=== PATIENT | female | born 1990 | race Caucasian/White ===

== ENCOUNTER 2017-07-21 09:32 | Inpatient (IN) | payer OTHER ==
[2017-07-21 10:35] VITALS: BMI 22.2
--- NOTE | 2017-07-21 11:35 | HP ---
COWS - Scale Resting Pulse: 2= [place] 101-120 (0) Sweatin= Chills/Flushing Restless Observation: 3= Extraneous Movement Pupil Size: 2= Moderately Dilated Bone or Joint Aches: 4=Acute Joint/Muscle Pain Runny Nose/ Eye Tearin= Runny Nose/Eyes GI Upset > 30mins: 2= Nausea/Diarrhea (NAUSEA) Tremor Observation: 1= Tremor [place], Not Seen Yawning Observation: 0= None Anxiety or Irritability: 1=Feels Anxious/Irritable Goose Flesh Skin: 0=Smooth Skin COWS Score: 18 Admission ROS S - HPI Chief Complaint: DETOX TX FOR HEROIN AND XANAX DEPENDENCE Allergies/Adverse Reactions: Allergies Allergy/AdvReac Type Severity Reaction Status Date / Time blueberry Allergy Severe Swelling Verified 07/21/17 10:43 No Known Drug Allergies Allergy Verified 07/21/17 10:43 nuts Allergy Severe Swelling Uncoded 07/21/17 10:43 History of Present Illness: 27 Y/O FEMALE WITH A HX OF HEROIN AND XANAX DEPENDENCE SEEKING DETOX TX. TOX(-) FOR XANAX. LAST TX HERE IN 2013. STATES HAS BEEN IN OTHER TX SINCE THEN. Exam Limitations: No Limitations - Ebola screening Have you traveled outside of the country in the last 21 days: No Have you had contact with anyone from an Ebola affected area: No Have you been sick,other than usual withdrawal symptoms: No Do you have a fever: No - Review of Systems Constitutional: Chills, Loss of Appetite, Night Sweats, Changes in sleep EENT: reports: Blurred Vision (WEARS GLASSES), Tearing, Nose Congestion, Dental Problems (FILLINGS FOR CAVITIES) Respiratory: reports: Shortness of Breath (HX ASTHMA), Wheezing Cardiac: reports: No Symptoms Reported GI: reports: Constipated, Diarrhea, Nausea, Poor Appetite, Poor Fluid Intake, Vomiting, Abdominal cramping : reports: Dysuria ('ONLY WHEN I'M HIGH") Musculoskeletal: reports: Back Pain, Joint Pain, Muscle Pain Integumentary: reports: Bruising (IVD INJ. SITES ON BOTH ANTECUBITAL SPACES.) Neuro: reports: Headache, Tremors Endocrine: reports: No Symptoms Reported Hematology: reports: Anemia Psychiatric: reports: Orientated x3, Anxious, other (INSOMNIA) Other Systems: Reviewed and Negative Patient History - Patient Medical History Hx Anemia: Yes (NOT CURRENTLY ON MED) Hx Asthma: Yes (MDI) Hx Chronic Obstructive Pulmonary Disease (COPD): No Hx Cardiac Disorders: No Hx Hypertension: No Hx Hypercholesterolemia: No HX Cerebrovascular Accident: No Hx Seizures: No Hx Diabetes: No Hx Gastrointestinal Disorders: No Hx Genitourinary Disorders: No Hx Sexually Transmitted Disorders: No Hx Renal Disease (ESRD): No Hx Human Immunodeficiency Virus (HIV): No (NEGATIVE HX) Hx Hepatitis C: No Hx Depression: No ("ANXIETY/INSOMNIA--WAS ON XANAX AND AMBIEN BUT STOPPED SEEING MY PSYCH--") Hx Suicide Attempt: No (DENIES) Hx Bipolar Disorder: No Hx Schizophrenia: No - Patient Surgical History Past Surgical History: Yes Hx Neurologic Surgery: No Hx Cataract Extraction: No Hx Cardiac Surgery: No Hx Lung Surgery: No Hx Breast Surgery: No Hx Breast Biopsy: No Hx Abdominal Surgery: No Hx Appendectomy: No Hx Cholecystectomy: No Hx Genitourinary Surgery: No Hx Section: No Hx Orthopedic Surgery: No Other Surgical History: D & C AT 16 Y/O. Anesthesia Reaction: No - PPD History Previous Implant?: Yes Documented Results: Negative w/proof Implanted On Prior R Admission?: Yes Date: 10/24/14 Results: 0 mm PPD to be Administered?: Yes - Reproductive History Patient is a Female of Child Bearing Age (11 -55 yrs old): Yes Last Menstrual Period: 05/23/17 LMP comment: IRREGULAR PERIODS Patient : No - Smoking Cessation Smoking history: Current every day smoker Have you smoked in the past 12 months: Yes Aproximately how many cigarettes per day: 20 Hx Chewing Tobacco Use: No Initiated information on smoking cessation: Yes 'Breaking Loose' booklet given: 07/21/17 - Substance & Tx. History Hx Alcohol Use: No (DENIES BUT PAST HX OF USE) Hx Substance Use: Yes (HEROIN/XANAX) Substance Use Type: Heroin, Tranquilizers Hx Substance Use Treatment: Yes (LAST TX AT [facility] A YR AGO) - Substances Abused Heroin Route: Injection Frequency: Daily Amount used: 10 bags Age of first use: 21 Date of Last Use: 07/21/17 Xanax Route: Oral Frequency: Daily Amount used: 6 mg. Age of first use: 23 Date of Last Use: 07/20/17 Family Disease History - Family Disease History Family Disease History: Diabetes: Father (PARKINSONS DISEASE;[place]-), [place]: Grandparent (BREAST/BRAIN-ALIVE), Other: Father Admission Physical Exam [facility] - Vital Signs Vital Signs: Vital Signs - 24 hr 07/21/17 10:32 Temperature 97 F L Pulse Rate 116 H Respiratory 20 Rate Blood Pressure 105/79 - Physical General Appearance: Yes: Moderate Distress, Anxious HEENTM: Yes: EOMI, Normocephalic, ROBERT, Pharynx Normal Respiratory: Yes: Chest Non-Tender, Lungs Clear, Normal Breath Sounds, No Respiratory Distress Neck: Yes: No masses,lesions,Nodules, Supple, Trachea in good position Breast: Yes: Breast Exam Deferred Cardiology: Yes: Regular Rhythm, Regular Rate, S1, S2 Abdominal: Yes: Normal Bowel Sounds, Non Tender, Flat, Soft Genitourinary: Yes: Other (N/C) Back: Yes: Within Normal Limits Musculoskeletal: Yes: full range of Motion, Gait Steady Extremities: Yes: Normal Range of Motion, Non-Tender Neurological: Yes: 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 NO SWELLING OR REDNESS.) Lymphatic: Yes: Within Normal Limits - Diagnostic (1) Bronchial asthma Current Visit: Yes Status: Chronic Qualifiers: Asthma severity: mild intermittent Asthma complication type: uncomplicated Qualified Code(s): J45.20 - Mild intermittent asthma, uncomplicated (2) Opioid dependence with withdrawal Current Visit: Yes Status: Acute (3) History of anemia Current Visit: Yes Status: Suspected Cleared for Admission [facility] - Detox or Rehab [facility] Level of Care: Medically Managed Detox Regimen/Protocol: Methadone (PT REQUESTS LIBRIUM INSTEAD OF VALIUM.) [facility] Breath Alcohol Content Breath Alcohol Content: 0 Urine Pregancy Test - Result Urine Test Results: Negative- NO Line Present Urine Drug Screen - Results Drug Screen Negative: No Urine Drug Screen Results: OPI-Opiates, TCA-Tricyclic Antidepress
[2017-07-21] MEDS ORDERED: chlordiazePOXIDE HCL 25 MG CAPSULE PO ONE (11:48)
[2017-07-21] MEDS ORDERED: MAG HYDROX/AL HYDROX/SIMETH 30 ML UNIT-DOSE CUP PO PRN (11:48)
[2017-07-21] MEDS ORDERED: guaiFENesin/D-METHORPHAN HB 10 ML UNIT-DOSE CUPS PO PRN (11:48)
[2017-07-21] MEDS ORDERED: MAGNESIUM CITRATE 300 ML BOTTLE PO PRN (11:48)
[2017-07-21] MEDS ORDERED: MENTHOL/PHENOL 1 EACH UD MM PRN (11:48)
[2017-07-21] MEDS ORDERED: MAGNESIUM HYDROX 2400MG/30ML ORAL SUSPENSION 30 ML CUP PO PRN (11:48)
[2017-07-21] MEDS ORDERED: P-EPHED 60MG/TRIPROLIDI 2.5MG TABLET PO PRN (11:48)
[2017-07-21] MEDS ORDERED: ACETAMINOPHEN 325 MG TABLET (FP) PO PRN (11:48)
[2017-07-21] MEDS ORDERED: IBUPROFEN 400 MG TABLET (FP) PO PRN (11:48)
[2017-07-21] MEDS ORDERED: ALBUTEROL SO4 6.7 GM HFA INHALER IH PRN (12:31)
[2017-07-21] MEDS ORDERED: METHADONE HCL 10 MG TABLET (FOR DETOX USE ONLY) PO ONE ×2 (13:00→23:00)
[2017-07-21] MEDS: chlordiazePOXIDE HCL 25 MG CAPSULE PO PRN ×3 (13:35→22:23)
[2017-07-21] MEDS: NICOTINE 21 MG/24 HOURS TOPICAL PATCH TD SCH (13:36)
[2017-07-21 13:58] LABS: MCH 27.4 pg (25.7-33.7); MCHC 32.8 g/dl (32.0-36.0); MEAN CELL VOLUME 83.8 fl (80-96); MEAN PLT VOLUME 9.3 fl (7.5-11.1); PLATELET COUNT 292 K/MM3 (134-434); RDW 13.3 % (11.6-15.6); WHITE BLOOD COUNT 7.5 K/mm3 (4.0-10.0)
[2017-07-21 14:01] LABS: ALBUMIN 4.2 g/dl (3.4-5.0); ANION GAP 7 (8-16); CALCIUM 9.8 mg/dL (8.5-10.1); CO2 28 mmol/L (21-32); GLUCOSE,RANDOM 104 mg/dL (74-106)
[2017-07-21 14:11] LABS: ALK PHOS 66 U/L (45-117); BILIRUBIN,TOTAL 0.3 mg/dL (0.2-1.0); CREATININE 0.9 mg/dL (0.55-1.02); SGOT/AST 11 U/L (15-37); SGPT/ALT 27 U/L (12-78); TOT PROT 7.9 g/dl (6.4-8.2)
--- NOTE | 2017-07-21 16:20 | CONSULT ---
[facility] Psychiatric Consult - Data Date of interview: 07/21/17 Admission source: [facility] Identifying data: This is 27 years old female with no psychiatric hospitalization history intoxicated with: Opioids, Alcohol, Cannabis Substance Abuse History: - Smoking Cessation. Smoking history: Current every day smoker. Have you smoked in the past 12 months: Yes. Aproximately how many cigarettes per day: 20. Hx Chewing Tobacco Use: No. Initiated information on smoking cessation: Yes. 'Breaking Loose' booklet given: 07/21/17. - Substance & Tx. History. Hx Alcohol Use: No (DENIES BUT PAST HX OF USE). Hx Substance Use: Yes (HEROIN/XANAX). Substance Use Type: Heroin, Tranquilizers. Hx Substance Use Treatment: Yes (LAST TX AT [facility] A YR AGO). - Substances Abused. Heroin. Route: Injection. Frequency: Daily. Amount used: 10 bags. Age of first use: 21. Date of Last Use: 07/21/17. Xanax. Route: Oral. Frequency: Daily. Amount used: 6 mg. Age of first use: 23. Date of Last Use: 07/20/17 Medical History: Asthma Anemia history Psychiatric History: Patient reports anxiety and insomnia, reports to carry anxiety and Panic attacks, reports taking prior to admission: Seroquel 200mg po qhs. Ambien 10mg po prn qhs for insomnia Physical/Sexual Abuse/Trauma History: Denies Additional Comment: Seroquel 200mg po qhs. Ambien 10mg po prn qhs for insomnia Mental Status Exam - Mental Status Exam Alert and Oriented to: Person Patient Appearance: Well Groomed Mood: Anxious Affect: Mood Congruent Patient Behavior: Cooperative Speech Pattern: Appropriate Voice Loudness: Normal Thought Process: Goal Oriented Thought Disorder: Being Controlled Hallucinations: Denies Suicidal Ideation: Denies Homicidal Ideation: Denies Insight/Judgement: Fair Sleep: Difficulty falling asleep Appetite: Fair Muscle strength/Tone: Normal Gait/Station: Normal Additional Comments: Seroquel 200mg po qhs. Ambien 10mg po prn qhs for insomnia Psychiatric Findings - Problem List ([place] 1, 2,3) (1) Opioid dependence with withdrawal Current Visit: Yes Status: Acute (2) Alcohol dependence, episodic drinking behavior Current Visit: No Status: Acute (3) ETOH abuse Current Visit: No Status: Acute (4) Alcohol dependence Current Visit: No Status: Chronic (5) Anxiety Current Visit: No Status: Chronic (6) Cannabis dependence Current Visit: No Status: Chronic (7) Panic attack Current Visit: No Status: Chronic (8) Substance induced mood disorder Current Visit: No Status: Chronic - Initial Treatment Plan Initial Treatment Plan: Seroquel 200mg po qhs. Ambien 10mg po prn qhs for insomnia
[2017-07-21] MEDS ORDERED: chlordiazePOXIDE HCL 25 MG CAPSULE PO SCH (17:00)
[2017-07-21] MEDS: hydrOXYzine PAMOATE 25 MG CAPSULE (FP) PO PRN (19:49)
[2017-07-21 20:01] LABS: URINE APPEARANCE CLEAR; URINE BILIRUBIN 1+ (NEGATIVE); URINE BLOOD NEGATIVE (NEGATIVE); URINE COLOR YELLOW; URINE GLUCOSE (UA) NEGATIVE (NEGATIVE); URINE KETONE NEGATIVE (NEGATIVE); URINE LEUK ESTERASE NEGATIVE (NEGATIVE); URINE NITRITE NEGATIVE (NEGATIVE); URINE UROBILINOGEN 0.2 mg/dL (0.2-1.0)
[2017-07-21 20:07] LABS: URINE PROTEIN 1+ (NEGATIVE)
[2017-07-21 20:24] LABS: URINE BACTERIA MANY /hpf (NONE SEEN); URINE HYALINE CAST 14 /lpf; URINE MUCUS MANY; URINE RBC 2 /hpf (0-3); URINE WBC 12 /hpf (3-5)
[2017-07-21] MEDS: THIAMINE HCL 100 MG TABLET (FP) PO SCH (22:22)
[2017-07-21] MEDS: ZOLPIDEM TARTRATE 10 MG TABLET (PARK CARE ONLY) PO PRN (22:22)
[2017-07-21] MEDS: QUEtiapine FUMARATE 200 MG TABLET PO SCH (22:22)
[2017-07-22] MEDS: diphenhydrAMINE HCL 50 MG CAPSULE PO PRN (00:48)
[2017-07-22] MEDS: chlordiazePOXIDE HCL 25 MG CAPSULE PO PRN ×5 (06:46→22:22)
[2017-07-22] MEDS ORDERED: METHADONE HCL 10 MG TABLET (FOR DETOX USE ONLY) PO SCH (10:00)
[2017-07-22] MEDS: PRENATAL VITAMINS W/ FOLIC ACID TABLET (FP) PO SCH (10:47)
[2017-07-22] MEDS: NICOTINE 21 MG/24 HOURS TOPICAL PATCH TD SCH (10:47)
--- NOTE | 2017-07-22 13:14 | EKG ---
Test Reason : Blood Pressure : / mmHG Vent. Rate : 087 BPM Atrial Rate : 087 BPM P-R Int : 112 ms QRS Dur : 086 ms QT Int : 360 ms P-R-T Axes : 067 069 050 degrees QTc Int : 433 ms NORMAL SINUS RHYTHM NONSPECIFIC ST ABNORMALITY ABNORMAL ECG NO PREVIOUS ECGS AVAILABLE REPEAT EKG IF CLINICALLY INDICATED Confirmed by INO HUNG MD ([id number]) on 07/22/2017 1:13:33 PM Referred By: Abdirizak Stoner Confirmed By:INO HUNG MD
[2017-07-22] MEDS ORDERED: chlordiazePOXIDE HCL 25 MG CAPSULE PO SCH (17:00)
[2017-07-22] MEDS: ZOLPIDEM TARTRATE 10 MG TABLET (PARK CARE ONLY) PO PRN (22:21)
[2017-07-22] MEDS: QUEtiapine FUMARATE 200 MG TABLET PO SCH (22:22)
[2017-07-22] MEDS: THIAMINE HCL 100 MG TABLET (FP) PO SCH (22:22)
[2017-07-23] MEDS: chlordiazePOXIDE HCL 25 MG CAPSULE PO PRN ×4 (05:51→22:15)
[2017-07-23] MEDS: METHADONE HCL 5 MG TABLET (FOR DETOX USE ONLY) PO SCH (10:43)
[2017-07-23] MEDS: PRENATAL VITAMINS W/ FOLIC ACID TABLET (FP) PO SCH (10:43)
[2017-07-23] MEDS: NICOTINE 21 MG/24 HOURS TOPICAL PATCH TD SCH (10:44)
[2017-07-23] MEDS: LOPERAMIDE HCL 2 MG CAPSULE PO PRN ×2 (10:44→22:16)
--- NOTE | 2017-07-23 12:06 | PN ---
BHS COWS - Scale Resting Pulse: 2= [place] 101-120 Sweatin=Flushed/Facial Moisture Restless Observation: 0= Sits Still Pupil Size: 0= Normal to Room Light Bone or Joint Aches: 2= Severe Diffuse Aches Runny Nose/ Eye Tearin= Nasal Congestion GI Upset > 30mins: 2= Nausea/Diarrhea Tremor Observation of Outstretched Hands: 2= Slight Tremor Visible Yawning Observation: 2= >3x During Session Anxiety or Irritability: 2=Irritable/Anxious Goose Flesh Skin: 3=Piloerection COWS Score: 18 BHS Progress Note (SOAP) Subjective: diarrhea shakes sweats agitation anxiety body aches irritable Objective: 07/23/17 12:05 Vital Signs Temperature 97.7 F 07/23/17 10:00 Pulse Rate 111 H 07/23/17 10:00 Respiratory Rate 18 07/23/17 10:00 Blood Pressure 105/75 07/23/17 10:00 O2 Sat by Pulse Oximetry (%) Laboratory Tests 07/21/17 07/21/17 07/21/17 11:45 11:45 11:45 WBC 7.5 D RBC 4.23 Hgb 11.6 D Hct 35.4 MCV 83.8 MCH 27.4 MCHC 32.8 RDW 13.3 Plt Count 292 MPV 9.3 D Sodium 140 Potassium 4.2 Chloride 105 Carbon Dioxide 28 Anion Gap 7 L BUN 15 Creatinine 0.9 Creat Clearance w eGFR > 60 Random Glucose 104 Calcium 9.8 Total Bilirubin 0.3 D AST 11 L D ALT 27 Alkaline Phosphatase 66 Total Protein 7.9 Albumin 4.2 Urine Color Urine Appearance Urine pH Ur Specific [place] Urine Protein Urine Glucose (UA) Urine Ketones Urine Blood Urine Nitrite Urine Bilirubin Urine Urobilinogen Urine RBC Urine WBC Ur Epithelial Cells Urine Bacteria Hyaline Casts Urine Mucus RPR Titer Hepatitis C Antibody 0.2 07/21/17 07/21/17 11:45 14:00 WBC RBC Hgb Hct MCV MCH MCHC RDW Plt Count MPV Sodium Potassium Chloride Carbon Dioxide Anion Gap BUN Creatinine Creat Clearance w eGFR Random Glucose Calcium Total Bilirubin AST ALT Alkaline Phosphatase Total Protein Albumin Urine Color Yellow Urine Appearance Clear Urine pH 7.0 Ur Specific [place] 1.020 Urine Protein 1+ H Urine Glucose (UA) Negative Urine Ketones Negative Urine Blood Negative Urine Nitrite Negative Urine Bilirubin 1+ H Urine Urobilinogen 0.2 Urine RBC 2 Urine WBC 12 Ur Epithelial Cells Many Urine Bacteria Many Hyaline Casts 14 Urine Mucus Many RPR Titer Nonreactive Hepatitis C Antibody repeat u/a awake/alert ambulating no acute distress Assessment: 07/23/17 12:05 withdrawal sx Plan: continue detox increase fluids stop ensure immodium prn
[2017-07-23] MEDS ORDERED: chlordiazePOXIDE 5 MG CAPSULE PO SCH (17:00)
[2017-07-23] MEDS: THIAMINE HCL 100 MG TABLET (FP) PO SCH (22:15)
[2017-07-23] MEDS: QUEtiapine FUMARATE 200 MG TABLET PO SCH (22:15)
[2017-07-23] MEDS: ZOLPIDEM TARTRATE 10 MG TABLET (PARK CARE ONLY) PO PRN (22:15)
[2017-07-24] MEDS: LOPERAMIDE HCL 2 MG CAPSULE PO PRN (10:04)
[2017-07-24] MEDS: PRENATAL VITAMINS W/ FOLIC ACID TABLET (FP) PO SCH (10:37)
[2017-07-24] MEDS: chlordiazePOXIDE HCL 25 MG CAPSULE PO PRN (10:38)
[2017-07-24] MEDS: METHADONE HCL 5 MG TABLET (FOR DETOX USE ONLY) PO SCH (10:38)
[2017-07-24] MEDS: NICOTINE 21 MG/24 HOURS TOPICAL PATCH TD SCH (10:39)
--- NOTE | 2017-07-24 11:26 | PN ---
BHS COWS - Scale Resting Pulse: 2= [place] 101-120 Sweatin=Flushed/Facial Moisture Restless Observation: 1= Difficult to Sit Still Pupil Size: 0= Normal to Room Light Bone or Joint Aches: 2= Severe Diffuse Aches Runny Nose/ Eye Tearin= Runny Nose/Eyes GI Upset > 30mins: 2= Nausea/Diarrhea Tremor Observation of Outstretched Hands: 2= Slight Tremor Visible Yawning Observation: 0= None Anxiety or Irritability: 2=Irritable/Anxious Goose Flesh Skin: 0=Smooth Skin COWS Score: 15 BHS Progress Note (SOAP) Subjective: sweats shakes interrupted sleep diarrhea irritable Objective: 07/24/17 11:24 Vital Signs Temperature 98.1 F 07/24/17 10:06 Pulse Rate 109 H 07/24/17 10:06 Respiratory Rate 18 07/24/17 10:06 Blood Pressure 102/65 07/24/17 10:06 O2 Sat by Pulse Oximetry (%) Laboratory Tests 07/21/17 07/21/17 07/21/17 11:45 11:45 11:45 WBC 7.5 D RBC 4.23 Hgb 11.6 D Hct 35.4 MCV 83.8 MCH 27.4 MCHC 32.8 RDW 13.3 Plt Count 292 MPV 9.3 D Sodium 140 Potassium 4.2 Chloride 105 Carbon Dioxide 28 Anion Gap 7 L BUN 15 Creatinine 0.9 Creat Clearance w eGFR > 60 Random Glucose 104 Calcium 9.8 Total Bilirubin 0.3 D AST 11 L D ALT 27 Alkaline Phosphatase 66 Total Protein 7.9 Albumin 4.2 Urine Color Urine Appearance Urine pH Ur Specific [place] Urine Protein Urine Glucose (UA) Urine Ketones Urine Blood Urine Nitrite Urine Bilirubin Urine Urobilinogen Urine RBC Urine WBC Ur Epithelial Cells Urine Bacteria Hyaline Casts Urine Mucus RPR Titer Hepatitis C Antibody 0.2 07/21/17 07/21/17 11:45 14:00 WBC RBC Hgb Hct MCV MCH MCHC RDW Plt Count MPV Sodium Potassium Chloride Carbon Dioxide Anion Gap BUN Creatinine Creat Clearance w eGFR Random Glucose Calcium Total Bilirubin AST ALT Alkaline Phosphatase Total Protein Albumin Urine Color Yellow Urine Appearance Clear Urine pH 7.0 Ur Specific [place] 1.020 Urine Protein 1+ H Urine Glucose (UA) Negative Urine Ketones Negative Urine Blood Negative Urine Nitrite Negative Urine Bilirubin 1+ H Urine Urobilinogen 0.2 Urine RBC 2 Urine WBC 12 Ur Epithelial Cells Many Urine Bacteria Many Hyaline Casts 14 Urine Mucus Many RPR Titer Nonreactive Hepatitis C Antibody awake/alert ambulating no acute distress Assessment: 07/24/17 11:26 withdrawal sx Plan: continue detox increase fluids immodium prn
[2017-07-24] MEDS ORDERED: chlordiazePOXIDE HCL 10 MG CAPSULE PO SCH (17:00)
[2017-07-24] MEDS: hydrOXYzine PAMOATE 25 MG CAPSULE (FP) PO PRN (17:59)
[2017-07-24] MEDS: CYCLOBENZAPRINE HCL 10 MG TABLET (FP) PO PRN ×2 (20:50→22:17)
[2017-07-24] MEDS: SULFAMETHOXAZOLE/TRIMETHOPRIM 800MG/160MG D.S. TABLET PO SCH (22:16)
[2017-07-24] MEDS: diphenhydrAMINE HCL 50 MG CAPSULE PO PRN (22:16)
[2017-07-24] MEDS: QUEtiapine FUMARATE 200 MG TABLET PO SCH (22:17)
[2017-07-24] MEDS: THIAMINE HCL 100 MG TABLET (FP) PO SCH (22:17)
[2017-07-25] MEDS ORDERED: METHADONE HCL 10 MG TABLET (FOR DETOX USE ONLY) PO SCH (10:00)
[2017-07-25 10:05] LABS: URINE APPEARANCE SLCLOUDY; URINE BILIRUBIN NEGATIVE (NEGATIVE); URINE BLOOD NEGATIVE (NEGATIVE); URINE COLOR YELLOW; URINE GLUCOSE (UA) NEGATIVE (NEGATIVE); URINE KETONE NEGATIVE (NEGATIVE); URINE LEUK ESTERASE NEGATIVE (NEGATIVE); URINE NITRITE NEGATIVE (NEGATIVE); URINE PROTEIN NEGATIVE (NEGATIVE); URINE UROBILINOGEN NEGATIVE mg/dL (0.2-1.0)
[2017-07-25] MEDS: SULFAMETHOXAZOLE/TRIMETHOPRIM 800MG/160MG D.S. TABLET PO SCH ×2 (10:39→22:33)
[2017-07-25] MEDS: hydrOXYzine PAMOATE 25 MG CAPSULE (FP) PO PRN ×2 (10:39→17:10)
[2017-07-25] MEDS: NICOTINE 21 MG/24 HOURS TOPICAL PATCH TD SCH (10:39)
[2017-07-25] MEDS: PRENATAL VITAMINS W/ FOLIC ACID TABLET (FP) PO SCH (10:39)
[2017-07-25] MEDS: NICOTINE POLACRILEX 4 MG GUM BC PRN ×4 (10:42→22:35)
--- NOTE | 2017-07-25 12:42 | PN ---
BHS Progress Note (SOAP) Subjective: feeling better low back pain Objective: 07/25/17 12:42 Vital Signs Temperature 97.7 F 07/25/17 09:44 Pulse Rate 95 H 07/25/17 09:44 Respiratory Rate 18 07/25/17 09:44 Blood Pressure 99/71 07/25/17 09:44 O2 Sat by Pulse Oximetry (%) awake/alert ambulating no acute distress Assessment: 07/25/17 12:42 mild withdrawal sx Plan: continue detox increase fluids d/c in am
[2017-07-25] MEDS: CYCLOBENZAPRINE HCL 10 MG TABLET (FP) PO PRN ×2 (13:49→22:33)
[2017-07-25] MEDS: diphenhydrAMINE HCL 50 MG CAPSULE PO PRN (22:33)
[2017-07-25] MEDS: THIAMINE HCL 100 MG TABLET (FP) PO SCH (22:33)
[2017-07-25] MEDS: QUEtiapine FUMARATE 200 MG TABLET PO SCH (22:33)
[2017-07-26] MEDS: CYCLOBENZAPRINE HCL 10 MG TABLET (FP) PO PRN (05:21)
[2017-07-26] MEDS ORDERED: METHADONE HCL 5 MG TABLET (FOR DETOX USE ONLY) PO SCH (06:00)
[2017-07-26] MEDS: SULFAMETHOXAZOLE/TRIMETHOPRIM 800MG/160MG D.S. TABLET PO SCH (09:43)
[2017-07-26] MEDS: PRENATAL VITAMINS W/ FOLIC ACID TABLET (FP) PO SCH (09:43)
[2017-07-26] MEDS: NICOTINE 21 MG/24 HOURS TOPICAL PATCH TD SCH (09:44)
[2017-07-26 11:10] VITALS: BP 109/71; PULSE 120; TEMP 97.7
--- NOTE | 2017-07-26 13:27 | DS ---
[facility] Detox Discharge Summary Admission Date: 07/21/17 Discharge Date: 07/26/17 - History Present History: Cannabis Dependence, Opioid Dependence Pertinent Past History: asthma, anemia, UTI - Physical Exam Results Vital Signs: Vital Signs Temperature 97.7 F 07/26/17 11:10 Pulse Rate 120 H 07/26/17 11:10 Respiratory Rate 16 07/26/17 11:10 Blood Pressure 109/71 07/26/17 11:10 O2 Sat by Pulse Oximetry (%) Pertinent Admission Physical Exam Findings: withdrawal sx Laboratory Last Values WBC 7.5 K/mm3 (4.0-10.0) D 07/21/17 11:45 RBC 4.23 M/mm3 (3.60-5.2) 07/21/17 11:45 Hgb 11.6 GM/dL (10.7-15.3) D 07/21/17 11:45 Hct 35.4 % (32.4-45.2) 07/21/17 11:45 MCV 83.8 fl (80-96) 07/21/17 11:45 MCH 27.4 pg (25.7-33.7) 07/21/17 11:45 MCHC 32.8 g/dl (32.0-36.0) 07/21/17 11:45 RDW 13.3 % (11.6-15.6) 07/21/17 11:45 Plt Count 292 K/MM3 (134-434) 07/21/17 11:45 MPV 9.3 fl (7.5-11.1) D 07/21/17 11:45 Sodium 140 mmol/L (136-145) 07/21/17 11:45 Potassium 4.2 mmol/L (3.5-5.1) 07/21/17 11:45 Chloride 105 mmol/L (98-107) 07/21/17 11:45 Carbon Dioxide 28 mmol/L (21-32) 07/21/17 11:45 Anion Gap 7 (8-16) L 07/21/17 11:45 BUN 15 mg/dL (7-18) 07/21/17 11:45 Creatinine 0.9 mg/dL (0.55-1.02) 07/21/17 11:45 Creat Clearance w eGFR > 60 (>60) 07/21/17 11:45 Random Glucose 104 mg/dL (74-106) 07/21/17 11:45 Calcium 9.8 mg/dL (8.5-10.1) 07/21/17 11:45 Total Bilirubin 0.3 mg/dL (0.2-1.0) D 07/21/17 11:45 AST 11 U/L (15-37) L D 07/21/17 11:45 ALT 27 U/L (12-78) 07/21/17 11:45 Alkaline Phosphatase 66 U/L (45-117) 07/21/17 11:45 Total Protein 7.9 g/dl (6.4-8.2) 07/21/17 11:45 Albumin 4.2 g/dl (3.4-5.0) 07/21/17 11:45 Urine Color Yellow 07/25/17 08:10 Urine Appearance Slcloudy 07/25/17 08:10 Urine pH 5.0 (5.0-8.0) D 07/25/17 08:10 Ur Specific [place] >= 1.030 (1.005-1.025) H 07/25/17 08:10 Urine Protein Negative (NEGATIVE) 07/25/17 08:10 Urine Glucose (UA) Negative (NEGATIVE) 07/25/17 08:10 Urine Ketones Negative (NEGATIVE) 07/25/17 08:10 Urine Blood Negative (NEGATIVE) 07/25/17 08:10 Urine Nitrite Negative (NEGATIVE) 07/25/17 08:10 Urine Bilirubin Negative (NEGATIVE) 07/25/17 08:10 Urine Urobilinogen Negative mg/dL (0.2-1.0) 07/25/17 08:10 Urine RBC 2 /hpf (0-3) 07/21/17 14:00 Urine WBC 12 /hpf (3-5) 07/21/17 14:00 Ur Epithelial Cells Many /hpf (FEW) 07/21/17 14:00 Urine Bacteria Many /hpf (NONE SEEN) 07/21/17 14:00 Hyaline Casts 14 /lpf 07/21/17 14:00 Urine Mucus Many 07/21/17 14:00 RPR Titer Nonreactive (NONREACTIVE) 07/21/17 11:45 Hepatitis C Antibody 0.2 s/co ratio (0.0-0.9) 07/21/17 11:45 labs noted - Treatment Hospital Course: Detox Protocol Followed, Detoxed Safely, Responded well, Discharged Condition Good - Medication Discharge Medications: Ambulatory Orders Albuterol Sulfate Inhaler - [Ventolin HFA Inhaler -] 2 inh PO Q4H PRN 06/09/15 Quetiapine Fumarate [Seroquel -] 200 mg PO HS #30 tab 07/21/17 Sulfamethoxazole/Trimethoprim [Bactrim Ds -] 1 tab PO BID #7 tablet 07/26/17 - Diagnosis (1) Cannabis dependence Current Visit: Yes Status: Acute (2) Opioid dependence with withdrawal Current Visit: Yes Status: Acute (3) Substance induced mood disorder Current Visit: Yes Status: Chronic (4) UTI (urinary tract infection) Current Visit: Yes Status: Acute Qualifiers: Urinary tract infection type: acute cystitis Hematuria presence: without hematuria Qualified Code(s): N30.00 - Acute cystitis without hematuria - AMA Did Patient Leave Against Medical Advice: No
== END 2017-07-26 10:28 | disposition home or self-care (01) | DRG 773 ==
LOC: YASAS 09:32 → Y6N 12:22
PROVIDERS: ADMIT Internal Medicine; ATTEND Internal Medicine Addiction Medicine
PROC: HZ2ZZZZ Detoxification Services for Substance Abuse Treatment (ICD-10-PCS; principal; 2017-07-21)
DX: F11.23 Opioid dependence with withdrawal (principal); F12.20 Cannabis dependence, uncomplicated; F17.210 Nicotine dependence, cigarettes, uncomplicated; F19.24 Other psychoactive substance dependence with psychoactive substance-induced mood disorder; F41.9 Anxiety disorder, unspecified; F41.0 Panic disorder [episodic paroxysmal anxiety]; J45.20 Mild intermittent asthma, uncomplicated; N30.00 Acute cystitis without hematuria
CPT/HCPCS: 36415; 80053; 81003; 81015; 85027; 86593; 86803; 93005; 93010

== ENCOUNTER 2017-07-29 13:07 | Inpatient (IN) | payer OTHER ==
[2017-07-29 14:47] VITALS: BMI 22.2
--- NOTE | 2017-07-29 15:21 | HP ---
Admission [facility] Chief Complaint: I AM HERE FRO REHAB FROM HEROIN,XANAX Allergies/Adverse Reactions: Allergies Allergy/AdvReac Type Severity Reaction Status Date / Time blueberry Allergy Severe Swelling Verified 07/29/17 15:13 nut - unspecified Allergy Severe Swelling Verified 07/29/17 16:11 No Known Drug Allergies Allergy Verified 07/29/17 15:13 nuts Allergy Severe Swelling Uncoded 07/29/17 15:13 History of Present Illness: THIS 27 YEARS OLD FEMALE WITH HEROIN AND XANAX DEPENENCE,SEEKING REHAB,LAST TREATMENT [facility] 07/21/17 TO 07/26/17 ASTHMA INSOMNIA LONGEST PERIOD OF SOBRIETY 1 YEAR - Ebola screening Have you traveled outside of the country in the last 21 days: No Have you had contact with anyone from an Ebola affected area: No Have you been sick,other than usual withdrawal symptoms: No - Review of Systems Constitutional: No Symptoms Reported EENT: reports: No Symptoms Reported Respiratory: reports: No Symptoms reported, Other (ASTHMA) Cardiac: reports: No Symptoms Reported GI: reports: No Symptoms Reported : reports: No Symptoms Reported Musculoskeletal: reports: No Symptoms Reported Integumentary: reports: No Symptoms Reported Neuro: reports: No Symptoms reported Endocrine: reports: No Symptoms Reported Hematology: reports: No Symptoms Reported Psychiatric: reports: No Sypmtoms Reported (INSOMNIA), Judgement Intact, Mood/ Affect Appropiate, other Patient History - Patient Medical History Hx Anemia: Yes (NOT CURRENTLY ON MED) Hx Asthma: Yes (MDI) Hx Chronic Obstructive Pulmonary Disease (COPD): No Hx Cardiac Disorders: No Hx Hypertension: No Hx Hypercholesterolemia: No HX Cerebrovascular Accident: No Hx Seizures: No Hx Diabetes: No Hx Gastrointestinal Disorders: No Hx Genitourinary Disorders: No Hx Sexually Transmitted Disorders: No Hx Renal Disease (ESRD): No Hx Human Immunodeficiency Virus (HIV): No (NEGATIVE HX) Hx Hepatitis C: No Hx Depression: No ("ANXIETY/INSOMNIA--WAS ON XANAX AND AMBIEN BUT STOPPED SEEING MY PSYCH--") Hx Suicide Attempt: No (DENIES) Hx Bipolar Disorder: No Hx Schizophrenia: No - Patient Surgical History Past Surgical History: Yes Hx Neurologic Surgery: No Hx Cataract Extraction: No Hx Cardiac Surgery: No Hx Lung Surgery: No Hx Breast Surgery: No Hx Breast Biopsy: No Hx Abdominal Surgery: No Hx Appendectomy: No Hx Cholecystectomy: No Hx Genitourinary Surgery: No Hx Section: No Hx Orthopedic Surgery: No Other Surgical History: D & C AT 16 Y/O. Anesthesia Reaction: No - PPD History Previous Implant?: Yes Documented Results: Negative w/proof Date: 10/24/14 Results: 0 mm - Reproductive History Patient is a Female of Child Bearing Age (11 -55 yrs old): Yes Last Menstrual Period: 05/23/17 Patient : No - Smoking Cessation Smoking history: Current every day smoker Have you smoked in the past 12 months: Yes Aproximately how many cigarettes per day: 20 Hx Chewing Tobacco Use: No Initiated information on smoking cessation: Yes 'Breaking Loose' booklet given: 07/29/17 - Substance & Tx. History Hx Alcohol Use: No Hx Substance Use: Yes Substance Use Type: Cocaine, Heroin, Tranquilizers - Substances Abused Heroin Route: Injection Frequency: Daily Amount used: 1 BAG Age of first use: 21 Date of Last Use: 07/28/17 Crack Route: Smoking Frequency: Daily Amount used: $40 Age of first use: 16 Date of Last Use: 07/28/17 Alprazolam (Xanax) Route: Oral Frequency: 1-2 times per week Amount used: 2MG Age of first use: 23 Date of Last Use: 07/26/17 Family Disease History - Family Disease History Family Disease History: Diabetes: Father (PARKINSONS DISEASE;[place]-), [place]: Grandparent (BREAST/BRAIN-ALIVE), Other: Father Admission Physical Exam BHS - Vital Signs Vital Signs: Vital Signs - 24 hr 07/29/17 14:42 Temperature 97.7 F Pulse Rate 96 H Respiratory 20 Rate Blood Pressure 112/72 - Physical General Appearance: Yes: Within Normal Limits HEENTM: Yes: Within Normal Limits, ROBERT, Pharynx Normal Respiratory: Yes: Lungs Clear, Normal Breath Sounds, No Respiratory Distress Neck: Yes: Within Normal Limits Breast: Yes: Breast Exam Deferred Cardiology: Yes: Within Normal Limits, Regular Rhythm, Regular Rate, S1, S2 Abdominal: Yes: Within Normal Limits, Normal Bowel Sounds, Non Tender, Flat, Soft Genitourinary: Yes: Within Normal Limits Back: Yes: Within Normal Limits Musculoskeletal: Yes: Within Normal Limits Extremities: Yes: Within Normal Limits Neurological: Yes: Within Normal Limits, 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, Fully Oriented, Alert, Motor Strength 5/5 Integumentary: Yes: Within Normal Limits Lymphatic: Yes: Within Normal Limits - Diagnostic (1) Bronchial asthma Current Visit: No Status: Chronic Qualifiers: Asthma severity: mild intermittent Asthma complication type: uncomplicated Qualified Code(s): J45.20 - Mild intermittent asthma, uncomplicated (2) Opioid dependence Current Visit: Yes Status: Acute (3) Sedative dependence Current Visit: Yes Status: Acute (4) Cocaine dependence Current Visit: Yes Status: Acute (5) Nicotine dependence Current Visit: Yes Status: Acute (6) Insomnia Current Visit: Yes Status: Acute Cleared for Admission BHS - Detox or Rehab Claeared for Rehab Admission: Yes BHS Breath Alcohol Content Breath Alcohol Content: 0 Urine Pregancy Test - Result Urine Test Results: Negative- NO Line Present Urine Drug Screen - Results Drug Screen Negative: No Urine Drug Screen Results: SENTHIL-Cocaine, OPI-Opiates, BZO-Benzodiazepines, MTD- Methadone, TCA-Tricyclic Antidepress Inpatient Rehab Admission - Initial Determination Are CD services needed?: Yes Free of communicable disease: Yes Not in need of hospitalization: Yes - Rehab Admission Criteria Previous failed treatment: Yes Poor recovery environment: Yes Patient is meeting Inpatient Rehab admission criteria:: Yes
[2017-07-29] MEDS ORDERED: guaiFENesin/D-METHORPHAN HB 10 ML UNIT-DOSE CUPS PO PRN (15:23)
[2017-07-29] MEDS ORDERED: P-EPHED 60MG/TRIPROLIDI 2.5MG TABLET PO PRN (15:23)
[2017-07-29] MEDS ORDERED: IBUPROFEN 400 MG TABLET (FP) PO PRN (15:23)
[2017-07-29] MEDS ORDERED: LOPERAMIDE HCL 2 MG CAPSULE PO PRN (15:23)
[2017-07-29] MEDS ORDERED: hydrOXYzine PAMOATE 25 MG CAPSULE (FP) PO PRN (15:23)
[2017-07-29] MEDS ORDERED: MAGNESIUM HYDROX 2400MG/30ML ORAL SUSPENSION 30 ML CUP PO PRN (15:23)
[2017-07-29] MEDS ORDERED: MENTHOL/PHENOL 1 EACH UD MM PRN (15:23)
[2017-07-29] MEDS ORDERED: MAGNESIUM CITRATE 300 ML BOTTLE PO PRN (15:23)
[2017-07-29] MEDS ORDERED: diphenhydrAMINE HCL 50 MG CAPSULE PO PRN (15:23)
--- NOTE | 2017-07-29 15:23 | HP ---
[facility] Rehab Assess/Revision - Admission History Admitted to Rehab from: [facility] [place] Date of Admission to Rehab: 07/29/17 - Vital signs Vital Signs: Vital Signs Period Temp Pulse Resp BP Sys/Ballesteros Pulse Ox Last 24 Hr 97.7 F 96 20 112/72 - Findings Detox History & Physical reviewed: Yes Concur with findings: Yes Comments/Additional Findings: FOR REHAB PROTOCOL
[2017-07-29] MEDS ORDERED: ALBUTEROL SO4 18 GM HFA INHALER IH PRN (15:25)
[2017-07-29] MEDS: NICOTINE 21 MG/24 HOURS TOPICAL PATCH TD SCH (18:08)
[2017-07-29] MEDS: THIAMINE HCL 100 MG TABLET (FP) PO SCH (21:38)
[2017-07-30] MEDS ORDERED: CYCLOBENZAPRINE HCL 10 MG TABLET (FP) PO PRN (09:08)
[2017-07-30] MEDS: PRENATAL VITAMINS W/ FOLIC ACID TABLET (FP) PO SCH (09:22)
[2017-07-30] MEDS: cloNIDine HCL 0.1 MG TABLET PO SCH ×3 (09:22→21:30)
[2017-07-30] MEDS: NICOTINE 21 MG/24 HOURS TOPICAL PATCH TD SCH (09:23)
--- NOTE | 2017-07-30 11:37 | HP ---
Psychiatrist Admission - Data Date of interview: 07/30/17 Admission source: [facility] Identifying data: This is the second admission to [address] [place] [address] for this 27 years old single childless female,resides with friend,supported by PA. Medical History: Significant for UTI acute and BA. Psychiatric History: Patient was seen by psychiatrist at school age to address anxiety,behavioral problems.She was on psychotherapy for a few months.Patient reports seing psychiatrist once in a while while in drug rehabilitation program to address insomnia,anxiety.No psychiatric care at present,not on medications but she is willing to restart mood stabilizers,anxiolytics which were given her upon discharge from [facility] in April;Remeron 15 mg po hs,Seroquel 400 mg o hs,Neurontin 600 mg po tid and Topamax 100 mg po bid Physical/Sexual Abuse/Trauma History: denies Vital Signs: Vital Signs - 24 hr 07/29/17 07/29/17 07/29/17 14:42 18:17 22:14 Temperature 97.7 F 98.2 F 98.2 F Pulse Rate 96 H 105 H 105 H Respiratory 20 16 16 Rate Blood Pressure 112/72 101/70 101/70 07/30/17 07/30/17 07/30/17 00:30 07:06 09:30 Temperature 98.2 F 98.3 F Pulse Rate 90 106 H Respiratory 16 18 18 Rate Blood Pressure 106/76 106/73 Allergies/Adverse Reactions: Allergies Allergy/AdvReac Type Severity Reaction Status Date / Time blueberry Allergy Severe Swelling Verified 07/29/17 15:13 nut - unspecified Allergy Severe Swelling Verified 07/29/17 16:11 No Known Drug Allergies Allergy Verified 07/29/17 15:13 nuts Allergy Severe Swelling Uncoded 07/29/17 15:13 Date of last physical exam: 07/29/17 Concur with the findings of this exam: Yes - Substance Abuse/Tx History Hx Alcohol Use: Yes (reports drinking since 16 yo) Hx Substance Use: Yes (iv since 21 yo,Xanax about 3 years ago,2 g daily) Substance Use Type: Alcohol, Heroin, Tranquilizers Hx Substance Use Treatment: Yes (completed this program in 2014) - Admission Criteria Previous failed treatment: Yes Poor recovery environment: Yes Comorbidities: Yes Lacks judgement: Yes Mental Status Exam - Mental Status Exam Alert and Oriented to: Time, Place, Person Cognitive Function: Grossly Intact Patient Appearance: Unkempt Mood: Anxious Affect: Mood Congruent, Labile Patient Behavior: Cooperative Speech Pattern: Clear Voice Loudness: Normal Thought Process: Goal Oriented Thought Disorder: Not Present Hallucinations: Denies Suicidal Ideation: Denies Homicidal Ideation: Denies Insight/Judgement: Fair Sleep: Difficulty falling asleep Appetite: Fair Muscle strength/Tone: Normal Gait/Station: Normal Psychiatric Findings - Problem List ([place] 1, 2,3) (1) Cocaine dependence Current Visit: Yes Status: Chronic (2) Nicotine dependence Current Visit: Yes Status: Chronic (3) Opioid dependence Current Visit: Yes Status: Chronic (4) Sedative dependence Current Visit: Yes Status: Chronic (5) Alcohol dependence, episodic drinking behavior Current Visit: No Status: Acute (6) Cannabis dependence Current Visit: Yes Status: Chronic (7) Psychoactive substance-induced mood disorder Current Visit: Yes Status: Chronic - Initial Treatment Plan Initial Treatment Plan: Continue current medications as per plan. Will monitor progress.
[2017-07-30] MEDS: hydrOXYzine PAMOATE 25 MG CAPSULE (FP) PO PRN (11:54)
[2017-07-30] MEDS: GABAPENTIN 300 MG CAPSULE (FP) PO SCH ×2 (13:36→21:14)
[2017-07-30] MEDS: TOPIRAMATE 100 MG TABLET PO SCH ×2 (13:36→22:15)
[2017-07-30] MEDS ORDERED: CYCLOBENZAPRINE HCL 5 MG TABLET PO ONE (14:48)
[2017-07-30] MEDS ORDERED: NAPROXEN 500 MG TABLET (FP) PO ONE (14:50)
[2017-07-30] MEDS: THIAMINE HCL 100 MG TABLET (FP) PO SCH (21:19)
[2017-07-30] MEDS: QUEtiapine FUMARATE 200 MG TABLET PO SCH (21:19)
[2017-07-30] MEDS: NAPROXEN 500 MG TABLET (FP) PO SCH (21:19)
[2017-07-30] MEDS: MIRTAZAPINE 15 MG TABLET (FP) PO SCH (21:19)
[2017-07-30] MEDS ORDERED: CYCLOBENZAPRINE HCL 10 MG TABLET (FP) PO SCH (22:00)
[2017-07-31] MEDS: GABAPENTIN 300 MG CAPSULE (FP) PO SCH ×3 (06:30→21:24)
[2017-07-31] MEDS: CYCLOBENZAPRINE HCL 5 MG TABLET PO SCH ×3 (06:30→21:23)
[2017-07-31] MEDS ORDERED: PT OWN MED DRAWER 7, Y5N ONE ×3 (08:40→21:26)
[2017-07-31] MEDS: PRENATAL VITAMINS W/ FOLIC ACID TABLET (FP) PO SCH (09:53)
[2017-07-31] MEDS: TOPIRAMATE 100 MG TABLET PO SCH ×2 (09:53→21:24)
[2017-07-31] MEDS: NAPROXEN 500 MG TABLET (FP) PO SCH ×2 (09:53→21:24)
[2017-07-31] MEDS: NICOTINE 21 MG/24 HOURS TOPICAL PATCH TD SCH (09:54)
[2017-07-31] MEDS: cloNIDine HCL 0.1 MG TABLET PO SCH ×2 (09:54→21:23)
--- NOTE | 2017-07-31 13:13 | PN ---
RAMA Progress Note Note: patient has a fall last night no head injury no complaint stated she is feeling ok ambulation with out difficulty was place on fall protocol 2 fall precaution close monitoring
[2017-07-31] MEDS: THIAMINE HCL 100 MG TABLET (FP) PO SCH (21:23)
[2017-07-31] MEDS: MIRTAZAPINE 15 MG TABLET (FP) PO SCH (21:24)
[2017-07-31] MEDS: QUEtiapine FUMARATE 200 MG TABLET PO SCH (21:24)
[2017-08-01] MEDS: GABAPENTIN 300 MG CAPSULE (FP) PO SCH ×3 (06:39→21:20)
[2017-08-01] MEDS: CYCLOBENZAPRINE HCL 5 MG TABLET PO SCH ×3 (06:39→21:20)
[2017-08-01] MEDS ORDERED: PT OWN MED DRAWER 7, Y5N ONE (08:36)
[2017-08-01] MEDS: TOPIRAMATE 100 MG TABLET PO SCH ×2 (09:57→21:20)
[2017-08-01] MEDS: NAPROXEN 500 MG TABLET (FP) PO SCH ×2 (09:57→21:20)
[2017-08-01] MEDS: PRENATAL VITAMINS W/ FOLIC ACID TABLET (FP) PO SCH (09:58)
[2017-08-01] MEDS: NICOTINE 21 MG/24 HOURS TOPICAL PATCH TD SCH (09:58)
[2017-08-01] MEDS: cloNIDine HCL 0.1 MG TABLET PO SCH ×2 (09:59→21:23)
[2017-08-01] MEDS: NICOTINE POLACRILEX 2 MG GUM BUC PRN (10:00)
--- NOTE | 2017-08-01 13:57 | PN ---
Psychiatric Progress Note Vital Signs: Vital Signs Period Temp Pulse Resp BP Sys/Ballesteros Pulse Ox Last 24 Hr 96.8 F-98.8 F 84-92 16-18 99-128/62-88 Date of Session: 08/01/17 Chief Complaint:: Thomas not sleeping,it makes me nervious." HPI: Opioid,Cocaine,Cannabis,Alcohol and Sedative dependence comorbid with Substance induced mood disoredr. ROS: BA,UTI. Current Medications: Active Medications Generic Name Dose Route Start Last Admin Trade Name Freq PRN Reason Stop Dose Admin Acetaminophen 650 mg 07/29/17 15:23 Tylenol - PO Q4H PRN FEVER OR PAIN Al Hydroxide/Mg Hydroxide 30 ml 07/29/17 15:23 Mylanta Oral Suspension - PO Q6H PRN DYSPEPSIA Albuterol Sulfate 2 puff 07/29/17 15:25 Ventolin Hfa Inhaler - IH Q4H PRN ASTHMA Clonidine 0.1 mg 07/30/17 10:00 08/01/17 09:59 Catapres - PO 08/02/17 23:59 Not Given BID KLAUDIA Cyclobenzaprine HCl 5 mg 07/31/17 03:20 08/01/17 13:12 Cyclobenzaprine Hcl PO 08/02/17 23:59 5 mg TID KLAUDIA Administration Diphenhydramine HCl 50 mg 07/29/17 15:23 07/29/17 21:38 Benadryl - PO 50 mg HSMR1 PRN Administration FOR ITCHING Eucalyptus/Menthol/Phenol/Sorbitol 1 each 07/29/17 15:23 Cepastat Lozenge - MM Q4H PRN SORE THROAT Gabapentin 600 mg 07/30/17 14:00 08/01/17 13:12 Neurontin - PO 600 mg TID KLAUDIA Administration Guaifenesin 10 ml 07/29/17 15:23 Robitussin Dm - PO Q6H PRN COUGH Hydroxyzine Pamoate 50 mg 07/30/17 06:47 07/30/17 11:54 Vistaril - PO 50 mg Q6H PRN Administration AGITATION Loperamide HCl 4 mg 07/29/17 15:23 07/30/17 08:58 Imodium - PO 4 mg Q6H PRN Administration DIARRHEA Magnesium Hydroxide 30 ml 07/29/17 15:23 Milk Of Magnesia - PO DAILY PRN CONSTIPATION Mirtazapine 30 mg 08/01/17 22:00 Remeron - PO HS KLAUDIA Naproxen 500 mg 07/30/17 22:00 08/01/17 09:57 Naprosyn - PO 500 mg BID KLAUDIA Administration Nicotine 21 mg 07/29/17 17:15 08/01/17 09:58 Nicoderm Patch - TD 21 mg DAILY KLAUDIA Administration Nicotine Polacrilex 2 mg 07/29/17 15:23 08/01/17 10:00 Nicorette Gum - BUC 2 mg Q2H PRN Administration NICOTINE REPLACEMENT RX Multivit/Folic Acid/Iron 1 tab 07/30/17 10:00 08/01/17 09:58 Vitamins (Sjr) - PO Not Given DAILY KLAUDIA Pseudoephedrine/Triprolidine 1 combo 07/29/17 15:23 Actifed - PO TID PRN NASAL CONGESTION Quetiapine Fumarate 300 mg 08/01/17 22:00 Seroquel - PO HS KLAUDIA Thiamine HCl 100 mg 07/29/17 22:00 07/31/17 21:23 Vitamin B1 - PO 100 mg HS KLAUDIA Administration Topiramate 100 mg 07/30/17 12:50 08/01/17 09:57 Topamax - PO 100 mg BID KLAUDIA Administration Current Side Effect: No Lab tests ordered: No Lab tests reviewed: Yes Provider note:: Chart was revuewedpatient was evaluated and medications were discussed with the patient.She addressed ongoing sleeping difficulties( inability to fall asleep and interrupted sleep pattern).Remeron 15 mg po hs will be adjusted to 30 mg po hs.Seroquel 200 mg po hs will be adjusted to 300 mg po hs . Supportive therapy as well as psychoeducation has been provided, sleep improving techniques has been discussed with the patient. Total face to face time:: 30 Mental Status Exam - Mental Status Exam Alert and Oriented to: Time, Place, Person Cognitive Function: Grossly Intact Patient Appearance: Well Groomed Mood: Anxious Affect: Mood Congruent, Labile Patient Behavior: Cooperative Speech Pattern: Clear Voice Loudness: Normal Thought Process: Goal Oriented Thought Disorder: Not Present Hallucinations: Denies Suicidal Ideation: Denies Homicidal Ideation: Denies Insight/Judgement: Fair Sleep: Difficulty falling asleep Appetite: Good Muscle strength/Tone: Normal Gait/Station: Normal Psychiatric Treatment Plan - Problem List (1) Cocaine dependence Current Visit: Yes (2) Nicotine dependence Current Visit: Yes (3) Opioid dependence Current Visit: Yes (4) Sedative dependence Current Visit: Yes (5) Alcohol dependence, episodic drinking behavior Current Visit: No (6) Cannabis dependence Current Visit: Yes (7) Psychoactive substance-induced mood disorder Current Visit: Yes
[2017-08-01] MEDS: MIRTAZAPINE 30 MG TABLET (FP) PO SCH (21:20)
[2017-08-01] MEDS: THIAMINE HCL 100 MG TABLET (FP) PO SCH (21:21)
[2017-08-01] MEDS: QUEtiapine FUMARATE 300 MG TABLET PO SCH (21:21)
[2017-08-02] MEDS: GABAPENTIN 300 MG CAPSULE (FP) PO SCH ×3 (06:43→21:20)
[2017-08-02] MEDS: CYCLOBENZAPRINE HCL 5 MG TABLET PO SCH ×3 (06:43→21:20)
[2017-08-02] MEDS: cloNIDine HCL 0.1 MG TABLET PO SCH ×2 (09:30→21:20)
[2017-08-02] MEDS: NAPROXEN 500 MG TABLET (FP) PO SCH ×2 (09:30→21:19)
[2017-08-02] MEDS: PRENATAL VITAMINS W/ FOLIC ACID TABLET (FP) PO SCH (09:31)
[2017-08-02] MEDS: NICOTINE 21 MG/24 HOURS TOPICAL PATCH TD SCH (09:31)
[2017-08-02] MEDS: TOPIRAMATE 100 MG TABLET PO SCH ×2 (09:31→21:19)
[2017-08-02] MEDS ORDERED: PT OWN MED DRAWER 7, Y5N ONE (19:12)
[2017-08-02] MEDS: MIRTAZAPINE 30 MG TABLET (FP) PO SCH (21:19)
[2017-08-02] MEDS: QUEtiapine FUMARATE 300 MG TABLET PO SCH (21:20)
[2017-08-02] MEDS: THIAMINE HCL 100 MG TABLET (FP) PO SCH (21:20)
[2017-08-03] MEDS: GABAPENTIN 300 MG CAPSULE (FP) PO SCH ×3 (06:54→21:28)
[2017-08-03] MEDS: NAPROXEN 500 MG TABLET (FP) PO SCH ×2 (09:58→21:28)
[2017-08-03] MEDS: NICOTINE 21 MG/24 HOURS TOPICAL PATCH TD SCH (09:58)
[2017-08-03] MEDS: PRENATAL VITAMINS W/ FOLIC ACID TABLET (FP) PO SCH (09:58)
[2017-08-03] MEDS: TOPIRAMATE 100 MG TABLET PO SCH ×2 (09:59→21:29)
[2017-08-03] MEDS: THIAMINE HCL 100 MG TABLET (FP) PO SCH (21:28)
[2017-08-03] MEDS: MIRTAZAPINE 30 MG TABLET (FP) PO SCH (21:28)
[2017-08-03] MEDS: QUEtiapine FUMARATE 300 MG TABLET PO SCH (21:28)
[2017-08-03] MEDS: hydrOXYzine PAMOATE 25 MG CAPSULE (FP) PO PRN (21:30)
[2017-08-03] MEDS: ACETAMINOPHEN 325 MG TABLET (FP) PO PRN (21:30)
[2017-08-04] MEDS: GABAPENTIN 300 MG CAPSULE (FP) PO SCH ×3 (06:30→21:31)
[2017-08-04] MEDS: NICOTINE POLACRILEX 2 MG GUM BUC PRN (09:34)
[2017-08-04] MEDS: NAPROXEN 500 MG TABLET (FP) PO SCH ×2 (10:18→21:32)
[2017-08-04] MEDS: TOPIRAMATE 100 MG TABLET PO SCH ×2 (10:18→21:32)
[2017-08-04] MEDS: PRENATAL VITAMINS W/ FOLIC ACID TABLET (FP) PO SCH (10:18)
[2017-08-04] MEDS: NICOTINE 21 MG/24 HOURS TOPICAL PATCH TD SCH (10:18)
[2017-08-04] MEDS ORDERED: CYCLOBENZAPRINE HCL 10 MG TABLET (FP) PO SCH (14:45)
[2017-08-04] MEDS: ACETAMINOPHEN 325 MG TABLET (FP) PO PRN (17:07)
[2017-08-04] MEDS: LACTULOSE 20 GM/30 ML UDC (FOR ORAL USE ONLY) PO SCH ×2 (17:07→21:31)
[2017-08-04] MEDS: SUVOREXANT 10 MG TABLET PO PRN (21:29)
[2017-08-04] MEDS: THIAMINE HCL 100 MG TABLET (FP) PO SCH (21:30)
[2017-08-04] MEDS: MIRTAZAPINE 30 MG TABLET (FP) PO SCH (21:32)
[2017-08-04] MEDS: QUEtiapine FUMARATE 300 MG TABLET PO SCH (21:32)
[2017-08-04] MEDS: CYCLOBENZAPRINE HCL 5 MG TABLET PO SCH (21:32)
[2017-08-05] MEDS: GABAPENTIN 300 MG CAPSULE (FP) PO SCH ×3 (06:25→21:35)
[2017-08-05] MEDS: CYCLOBENZAPRINE HCL 5 MG TABLET PO SCH ×3 (06:25→21:35)
[2017-08-05] MEDS: NAPROXEN 500 MG TABLET (FP) PO SCH ×2 (10:04→21:34)
[2017-08-05] MEDS: PRENATAL VITAMINS W/ FOLIC ACID TABLET (FP) PO SCH (10:04)
[2017-08-05] MEDS: TOPIRAMATE 100 MG TABLET PO SCH ×2 (10:04→21:36)
[2017-08-05] MEDS: NICOTINE 21 MG/24 HOURS TOPICAL PATCH TD SCH (10:05)
[2017-08-05] MEDS: LACTULOSE 20 GM/30 ML UDC (FOR ORAL USE ONLY) PO SCH ×4 (10:07→21:34)
[2017-08-05] MEDS: MAG HYDROX/AL HYDROX/SIMETH 30 ML UNIT-DOSE CUP PO PRN (17:04)
[2017-08-05] MEDS: ACETAMINOPHEN 325 MG TABLET (FP) PO PRN (17:05)
[2017-08-05] MEDS: MIRTAZAPINE 30 MG TABLET (FP) PO SCH (21:34)
[2017-08-05] MEDS: QUEtiapine FUMARATE 300 MG TABLET PO SCH (21:35)
[2017-08-05] MEDS: THIAMINE HCL 100 MG TABLET (FP) PO SCH (21:36)
[2017-08-05] MEDS: SUVOREXANT 10 MG TABLET PO PRN (21:37)
[2017-08-06] MEDS: GABAPENTIN 300 MG CAPSULE (FP) PO SCH ×3 (06:50→21:25)
[2017-08-06] MEDS ORDERED: PT OWN MED DRAWER 7, Y5N ONE (06:51)
[2017-08-06] MEDS: CYCLOBENZAPRINE HCL 5 MG TABLET PO SCH ×3 (06:52→21:25)
[2017-08-06] MEDS: NICOTINE 21 MG/24 HOURS TOPICAL PATCH TD SCH (10:29)
[2017-08-06] MEDS: TOPIRAMATE 100 MG TABLET PO SCH ×2 (10:29→21:25)
[2017-08-06] MEDS: NAPROXEN 500 MG TABLET (FP) PO SCH ×2 (10:29→21:25)
[2017-08-06] MEDS: LACTULOSE 20 GM/30 ML UDC (FOR ORAL USE ONLY) PO SCH ×4 (10:29→21:24)
[2017-08-06] MEDS: PRENATAL VITAMINS W/ FOLIC ACID TABLET (FP) PO SCH (10:30)
[2017-08-06] MEDS ORDERED: COLLOIDAL OATMEAL 1 BAR EACH TP PRN (17:34)
[2017-08-06] MEDS: MAG HYDROX/AL HYDROX/SIMETH 30 ML UNIT-DOSE CUP PO PRN (19:37)
[2017-08-06] MEDS: QUEtiapine FUMARATE 300 MG TABLET PO SCH (21:25)
[2017-08-06] MEDS: MIRTAZAPINE 30 MG TABLET (FP) PO SCH (21:25)
[2017-08-06] MEDS: SUVOREXANT 10 MG TABLET PO PRN (21:25)
[2017-08-06] MEDS: THIAMINE HCL 100 MG TABLET (FP) PO SCH (21:25)
[2017-08-07] MEDS: GABAPENTIN 300 MG CAPSULE (FP) PO SCH ×3 (06:40→21:21)
[2017-08-07] MEDS: CYCLOBENZAPRINE HCL 5 MG TABLET PO SCH ×3 (06:40→21:21)
[2017-08-07] MEDS: TOPIRAMATE 100 MG TABLET PO SCH ×2 (10:13→21:21)
[2017-08-07] MEDS: LACTULOSE 20 GM/30 ML UDC (FOR ORAL USE ONLY) PO SCH ×4 (10:13→21:21)
[2017-08-07] MEDS: PRENATAL VITAMINS W/ FOLIC ACID TABLET (FP) PO SCH (10:13)
[2017-08-07] MEDS: NICOTINE 21 MG/24 HOURS TOPICAL PATCH TD SCH (10:13)
[2017-08-07] MEDS: NAPROXEN 500 MG TABLET (FP) PO SCH ×2 (10:14→21:21)
[2017-08-07] MEDS: LIDOCAINE VISCOUS 2% ORAL/TOP 20 ML UNIT-DOSE CUP MM PRN ×2 (15:02→21:22)
[2017-08-07] MEDS: ACETAMINOPHEN 325 MG TABLET (FP) PO PRN (16:40)
[2017-08-07] MEDS: SUVOREXANT 10 MG TABLET PO PRN (21:20)
[2017-08-07] MEDS: QUEtiapine FUMARATE 300 MG TABLET PO SCH (21:21)
[2017-08-07] MEDS: MIRTAZAPINE 30 MG TABLET (FP) PO SCH (21:21)
[2017-08-07] MEDS: THIAMINE HCL 100 MG TABLET (FP) PO SCH (21:22)
[2017-08-08] MEDS: CYCLOBENZAPRINE HCL 5 MG TABLET PO SCH ×3 (06:36→21:11)
[2017-08-08] MEDS: GABAPENTIN 300 MG CAPSULE (FP) PO SCH ×3 (06:36→21:11)
[2017-08-08] MEDS: TOPIRAMATE 100 MG TABLET PO SCH ×2 (09:44→21:12)
[2017-08-08] MEDS: LACTULOSE 20 GM/30 ML UDC (FOR ORAL USE ONLY) PO SCH ×4 (09:44→21:10)
[2017-08-08] MEDS: NICOTINE 21 MG/24 HOURS TOPICAL PATCH TD SCH (09:44)
[2017-08-08] MEDS: NAPROXEN 500 MG TABLET (FP) PO SCH ×2 (09:44→21:11)
[2017-08-08] MEDS: PRENATAL VITAMINS W/ FOLIC ACID TABLET (FP) PO SCH (09:44)
[2017-08-08] MEDS: NICOTINE POLACRILEX 2 MG GUM BUC PRN (09:45)
[2017-08-08] MEDS: MIRTAZAPINE 30 MG TABLET (FP) PO SCH (21:11)
[2017-08-08] MEDS: QUEtiapine FUMARATE 300 MG TABLET PO SCH (21:12)
[2017-08-08] MEDS: THIAMINE HCL 100 MG TABLET (FP) PO SCH (21:12)
[2017-08-08] MEDS: SUVOREXANT 10 MG TABLET PO PRN (21:13)
[2017-08-09] MEDS: GABAPENTIN 300 MG CAPSULE (FP) PO SCH ×3 (06:37→21:13)
[2017-08-09] MEDS: CYCLOBENZAPRINE HCL 5 MG TABLET PO SCH ×3 (06:38→21:13)
[2017-08-09] MEDS: NAPROXEN 500 MG TABLET (FP) PO SCH ×2 (09:56→21:13)
[2017-08-09] MEDS: PRENATAL VITAMINS W/ FOLIC ACID TABLET (FP) PO SCH (09:56)
[2017-08-09] MEDS: TOPIRAMATE 100 MG TABLET PO SCH ×2 (09:56→21:13)
[2017-08-09] MEDS: LACTULOSE 20 GM/30 ML UDC (FOR ORAL USE ONLY) PO SCH ×4 (09:57→21:13)
[2017-08-09] MEDS: NICOTINE 21 MG/24 HOURS TOPICAL PATCH TD SCH (09:57)
[2017-08-09] MEDS: QUEtiapine FUMARATE 300 MG TABLET PO SCH (21:13)
[2017-08-09] MEDS: THIAMINE HCL 100 MG TABLET (FP) PO SCH (21:13)
[2017-08-09] MEDS: MIRTAZAPINE 30 MG TABLET (FP) PO SCH (21:13)
[2017-08-10] MEDS: GABAPENTIN 300 MG CAPSULE (FP) PO SCH ×3 (06:42→21:13)
[2017-08-10] MEDS: CYCLOBENZAPRINE HCL 5 MG TABLET PO SCH ×3 (06:42→21:14)
[2017-08-10] MEDS: NAPROXEN 500 MG TABLET (FP) PO SCH ×2 (10:02→21:14)
[2017-08-10] MEDS: LACTULOSE 20 GM/30 ML UDC (FOR ORAL USE ONLY) PO SCH ×4 (10:02→21:13)
[2017-08-10] MEDS: TOPIRAMATE 100 MG TABLET PO SCH ×2 (10:02→21:14)
[2017-08-10] MEDS: NICOTINE POLACRILEX 2 MG GUM BUC PRN ×2 (10:02→21:16)
[2017-08-10] MEDS: PRENATAL VITAMINS W/ FOLIC ACID TABLET (FP) PO SCH (10:02)
[2017-08-10] MEDS: NICOTINE 21 MG/24 HOURS TOPICAL PATCH TD SCH (10:02)
[2017-08-10] MEDS: LIDOCAINE VISCOUS 2% ORAL/TOP 20 ML UNIT-DOSE CUP MM PRN (10:06)
[2017-08-10] MEDS: THIAMINE HCL 100 MG TABLET (FP) PO SCH (21:14)
[2017-08-10] MEDS: MIRTAZAPINE 30 MG TABLET (FP) PO SCH (21:14)
[2017-08-10] MEDS: QUEtiapine FUMARATE 300 MG TABLET PO SCH (21:14)
[2017-08-10] MEDS: SUVOREXANT 10 MG TABLET PO PRN (21:15)
[2017-08-11] MEDS ORDERED: PT OWN MED DRAWER 7, Y5N ONE ×5 (02:40→21:33)
[2017-08-11] MEDS: GABAPENTIN 300 MG CAPSULE (FP) PO SCH ×3 (06:38→21:31)
[2017-08-11] MEDS: CYCLOBENZAPRINE HCL 5 MG TABLET PO SCH ×3 (06:39→21:31)
[2017-08-11] MEDS: NAPROXEN 500 MG TABLET (FP) PO SCH ×2 (10:16→21:31)
[2017-08-11] MEDS: TOPIRAMATE 100 MG TABLET PO SCH ×2 (10:16→21:31)
[2017-08-11] MEDS: NICOTINE 21 MG/24 HOURS TOPICAL PATCH TD SCH (10:16)
[2017-08-11] MEDS: LACTULOSE 20 GM/30 ML UDC (FOR ORAL USE ONLY) PO SCH ×4 (10:16→22:19)
[2017-08-11] MEDS: PRENATAL VITAMINS W/ FOLIC ACID TABLET (FP) PO SCH (10:16)
[2017-08-11] MEDS: SULFAMETHOXAZOLE/TRIMETHOPRIM 800MG/160MG D.S. TABLET PO SCH ×2 (15:42→21:31)
[2017-08-11] MEDS: CLOTRIMAZOLE 1% CREAM 15 GM TUBE TP SCH ×2 (15:43→22:20)
[2017-08-11] MEDS: SUVOREXANT 10 MG TABLET PO PRN (21:30)
[2017-08-11] MEDS: THIAMINE HCL 100 MG TABLET (FP) PO SCH (21:31)
[2017-08-11] MEDS: MIRTAZAPINE 30 MG TABLET (FP) PO SCH (21:31)
[2017-08-11] MEDS: QUEtiapine FUMARATE 300 MG TABLET PO SCH (22:22)
[2017-08-12] MEDS: CYCLOBENZAPRINE HCL 5 MG TABLET PO SCH ×3 (06:25→21:18)
[2017-08-12] MEDS: GABAPENTIN 300 MG CAPSULE (FP) PO SCH ×3 (06:25→21:18)
[2017-08-12 06:53] VITALS: TEMP 97.5
[2017-08-12] MEDS: LACTULOSE 20 GM/30 ML UDC (FOR ORAL USE ONLY) PO SCH ×4 (10:12→21:17)
[2017-08-12] MEDS: NAPROXEN 500 MG TABLET (FP) PO SCH ×2 (10:12→21:19)
[2017-08-12] MEDS: SULFAMETHOXAZOLE/TRIMETHOPRIM 800MG/160MG D.S. TABLET PO SCH ×2 (10:12→21:19)
[2017-08-12] MEDS: CLOTRIMAZOLE 1% CREAM 15 GM TUBE TP SCH ×2 (10:12→21:18)
[2017-08-12] MEDS: PRENATAL VITAMINS W/ FOLIC ACID TABLET (FP) PO SCH (10:12)
[2017-08-12] MEDS: TOPIRAMATE 100 MG TABLET PO SCH ×2 (10:13→21:19)
[2017-08-12] MEDS: NICOTINE 21 MG/24 HOURS TOPICAL PATCH TD SCH (10:13)
[2017-08-12] MEDS: SUVOREXANT 10 MG TABLET PO PRN (21:18)
[2017-08-12] MEDS: QUEtiapine FUMARATE 300 MG TABLET PO SCH (21:19)
[2017-08-12] MEDS: THIAMINE HCL 100 MG TABLET (FP) PO SCH (21:19)
[2017-08-12] MEDS: MIRTAZAPINE 30 MG TABLET (FP) PO SCH (21:20)
[2017-08-13] MEDS: CYCLOBENZAPRINE HCL 5 MG TABLET PO SCH ×2 (06:38→13:51)
[2017-08-13] MEDS: GABAPENTIN 300 MG CAPSULE (FP) PO SCH ×2 (06:38→13:50)
[2017-08-13 07:32] VITALS: BP 102/71; PULSE 98
[2017-08-13] MEDS ORDERED: PT OWN MED DRAWER 7, Y5N ONE ×2 (08:56→13:37)
[2017-08-13] MEDS: NAPROXEN 500 MG TABLET (FP) PO SCH (10:22)
[2017-08-13] MEDS: LACTULOSE 20 GM/30 ML UDC (FOR ORAL USE ONLY) PO SCH ×2 (10:22→13:51)
[2017-08-13] MEDS: TOPIRAMATE 100 MG TABLET PO SCH (10:22)
[2017-08-13] MEDS: PRENATAL VITAMINS W/ FOLIC ACID TABLET (FP) PO SCH (10:22)
[2017-08-13] MEDS: SULFAMETHOXAZOLE/TRIMETHOPRIM 800MG/160MG D.S. TABLET PO SCH (10:22)
[2017-08-13] MEDS: NICOTINE 21 MG/24 HOURS TOPICAL PATCH TD SCH (10:23)
[2017-08-13] MEDS: CLOTRIMAZOLE 1% CREAM 15 GM TUBE TP SCH (10:24)
--- NOTE | 2017-08-13 12:36 | PN ---
Psychiatric Progress Note Vital Signs: Vital Signs Period Temp Pulse Resp BP Sys/Ballesteros Pulse Ox Last 24 Hr 97.5 F 98 16-18 102/71 Date of Session: 08/13/17 Chief Complaint:: Discharge visit Current Medications: Active Medications Generic Name Dose Route Start Last Admin Trade Name Freq PRN Reason Stop Dose Admin Acetaminophen 650 mg 07/29/17 15:23 08/07/17 16:40 Tylenol - PO 650 mg Q4H PRN Administration FEVER OR PAIN Al Hydroxide/Mg Hydroxide 30 ml 07/29/17 15:23 08/06/17 19:37 Mylanta Oral Suspension - PO 30 ml Q6H PRN Administration DYSPEPSIA Albuterol Sulfate 2 puff 07/29/17 15:25 Ventolin Hfa Inhaler - IH Q4H PRN ASTHMA Clotrimazole 1 applic 08/11/17 13:30 08/13/17 10:24 Lotrimin 1% Cream - TP Not Given BID KLAUDIA Colloidal Oatmeal 1 applic 08/06/17 17:34 08/06/17 19:36 Aveeno Soap - TP 1 bar DAILY PRN Administration HYGEINE Cyclobenzaprine HCl 5 mg 08/04/17 16:17 08/13/17 06:38 Cyclobenzaprine Hcl PO 5 mg TID KLAUDIA Administration Diphenhydramine HCl 50 mg 07/29/17 15:23 07/29/17 21:38 Benadryl - PO 50 mg HSMR1 PRN Administration FOR ITCHING Eucalyptus/Menthol/Phenol/Sorbitol 1 each 07/29/17 15:23 Cepastat Lozenge - MM Q4H PRN SORE THROAT Gabapentin 600 mg 07/30/17 14:00 08/13/17 06:38 Neurontin - PO 600 mg TID KLAUDIA Administration Guaifenesin 10 ml 07/29/17 15:23 Robitussin Dm - PO Q6H PRN COUGH Hydroxyzine Pamoate 50 mg 07/30/17 06:47 08/03/17 21:30 Vistaril - PO 50 mg Q6H PRN Administration AGITATION Lactulose 20 gm 08/04/17 18:00 08/13/17 10:22 Cephulac (Oral Use) PO 20 gm QID KLAUDIA Administration Lidocaine HCl 20 ml 08/07/17 13:21 08/10/17 10:06 Xylocaine 2% Viscous Oral - MM 20 ml Q4HPO PRN Administration ORAL PAIN/MOUTH SORES Loperamide HCl 4 mg 07/29/17 15:23 07/30/17 08:58 Imodium - PO 4 mg Q6H PRN Administration DIARRHEA Magnesium Hydroxide 30 ml 07/29/17 15:23 Milk Of Magnesia - PO DAILY PRN CONSTIPATION Mirtazapine 30 mg 08/01/17 22:00 08/12/17 21:20 Remeron - PO 30 mg HS KLAUDIA Administration Naproxen 500 mg 07/30/17 22:00 08/13/17 10:22 Naprosyn - PO 500 mg BID KLAUDIA Administration Nicotine 21 mg 07/29/17 17:15 08/13/17 10:23 Nicoderm Patch - TD 21 mg DAILY KLAUDIA Administration Nicotine Polacrilex 2 mg 07/29/17 15:23 08/10/17 21:16 Nicorette Gum - BUC 2 mg Q2H PRN Administration NICOTINE REPLACEMENT RX Multivit/Folic Acid/Iron 1 tab 07/30/17 10:00 08/13/17 10:22 Vitamins (Sjr) - PO 1 tab DAILY KLAUDIA Administration Pseudoephedrine/Triprolidine 1 combo 07/29/17 15:23 Actifed - PO TID PRN NASAL CONGESTION Quetiapine Fumarate 300 mg 08/01/17 22:00 08/12/17 21:19 Seroquel - PO 300 mg HS KLAUDIA Administration Thiamine HCl 100 mg 07/29/17 22:00 08/12/17 21:19 Vitamin B1 - PO 100 mg HS KLAUDIA Administration Topiramate 100 mg 07/30/17 12:50 08/13/17 10:22 Topamax - PO 100 mg BID KLAUDIA Administration Trimethoprim/Sulfamethoxazole 1 each 08/11/17 13:30 08/13/17 10:22 Bactrim Ds - PO 1 each BID KLAUDIA Administration Current Side Effect: No Lab tests ordered: No Lab tests reviewed: Yes Provider note:: patient completed this program today.She has met her trearment goals and will continue to address her issues on outpatient basis .Patient reorts finding current medications:Seroquel 300 mg po hs,Neurontin 300 mg po tid , Psychiatric Treatment Plan - Problem List (1) Cocaine dependence Current Visit: Yes (2) Nicotine dependence Current Visit: Yes (3) Opioid dependence Current Visit: Yes (4) Sedative dependence Current Visit: Yes (5) Alcohol dependence, episodic drinking behavior Current Visit: Yes (6) Cannabis dependence Current Visit: Yes (7) Psychoactive substance-induced mood disorder Current Visit: Yes
== END 2017-08-13 14:04 | disposition home or self-care (01) | DRG 772 ==
LOC: YASAS 13:07 → Y3E 16:49
PROVIDERS: ADMIT Psychiatry & Neurology Psychiatry; ATTEND Psychiatry & Neurology Psychiatry
PROC: HZ42ZZZ Group Counseling for Substance Abuse Treatment, Cognitive-Behavioral (ICD-10-PCS; principal; 2017-07-29)
DX: F11.20 Opioid dependence, uncomplicated (principal); F13.20 Sedative, hypnotic or anxiolytic dependence, uncomplicated; F10.20 Alcohol dependence, uncomplicated; F14.20 Cocaine dependence, uncomplicated; F12.20 Cannabis dependence, uncomplicated; F17.210 Nicotine dependence, cigarettes, uncomplicated; F19.24 Other psychoactive substance dependence with psychoactive substance-induced mood disorder; J45.20 Mild intermittent asthma, uncomplicated; G47.00 Insomnia, unspecified; Z91.018 Allergy to other foods; Z91.010 Allergy to peanuts; Z91.81 History of falling; W19.XXXA Unspecified fall, initial encounter; Y93.9 Activity, unspecified; Y92.239 Unspecified place in hospital as the place of occurrence of the external cause

== ENCOUNTER 2017-12-05 10:18 | Inpatient (IN) | payer OTHER ==
[2017-12-05 10:33] VITALS: BMI 21.4
--- NOTE | 2017-12-05 13:40 | HP ---
COWS - Scale Resting Pulse: 1= [place] 81-100 Sweatin= Chills/Flushing Restless Observation: 3= Extraneous Movement Pupil Size: 0= Normal to Room Light Bone or Joint Aches: 4=Acute Joint/Muscle Pain Runny Nose/ Eye Tearin= Runny Nose/Eyes GI Upset > 30mins: 2= Nausea/Diarrhea Tremor Observation: 1= Tremor [place], Not Seen Yawning Observation: 0= None Anxiety or Irritability: 2=Irritable/Anxious Goose Flesh Skin: 0=Smooth Skin COWS Score: 16 Admission [facility] Chief Complaint: WITHDRAWAL SX FROM HEROIN Allergies/Adverse Reactions: Allergies Allergy/AdvReac Type Severity Reaction Status Date / Time blueberry Allergy Severe Swelling Verified 12/05/17 13:22 nut - unspecified Allergy Severe Swelling Verified 12/05/17 13:22 No Known Drug Allergies Allergy Verified 12/05/17 13:22 nuts Allergy Severe Swelling Uncoded 12/05/17 13:22 Exam Limitations: No Limitations - Ebola screening Have you traveled outside of the country in the last 21 days: No Have you had contact with anyone from an Ebola affected area: No Have you been sick,other than usual withdrawal symptoms: No Do you have a fever: No - Review of Systems Constitutional: Loss of Appetite, Changes in sleep EENT: reports: Blurred Vision (WEARS GLASSES), Tearing, Nose Congestion, Dental Problems (CHIPPED TOOTH) Respiratory: reports: Shortness of Breath (HX ASTHMA), Wheezing Cardiac: reports: No Symptoms Reported GI: reports: Constipated (OIC), Diarrhea, Nausea, Vomiting, Abdominal cramping : reports: No Symptoms Reported Musculoskeletal: reports: Joint Pain, Muscle Pain Integumentary: reports: Bruising (IVD INJ SITES ON BOTH ARMS. RIGHT ARM REDNESS WITH SWELLING FROM "SKIN POP".) Neuro: reports: Tremors Endocrine: reports: No Symptoms Reported Hematology: reports: Anemia Psychiatric: reports: Orientated x3, Anxious, Depressed Other Systems: Reviewed and Negative Patient History - Patient Medical History Hx Anemia: Yes (NOT CURRENTLY ON MED) Hx Asthma: Yes (MDI) Hx Chronic Obstructive Pulmonary Disease (COPD): No Hx Cardiac Disorders: No Hx Hypertension: No Hx Hypercholesterolemia: No HX Cerebrovascular Accident: No Hx Seizures: No Hx Diabetes: No Hx Gastrointestinal Disorders: No Hx Genitourinary Disorders: No Hx Sexually Transmitted Disorders: No Hx Renal Disease (ESRD): No Hx Human Immunodeficiency Virus (HIV): No (NEGATIVE HX) Hx Hepatitis C: No Hx Depression: Yes ("ANXIETY/INSOMNIA--WAS ON XANAX AND AMBIEN BUT STOPPED SEEING MY PSYCH--") Hx Suicide Attempt: No (DENIES) Hx Bipolar Disorder: No Hx Schizophrenia: No - Patient Surgical History Past Surgical History: Yes Hx Neurologic Surgery: No Hx Cataract Extraction: No Hx Cardiac Surgery: No Hx Lung Surgery: No Hx Breast Surgery: No Hx Breast Biopsy: No Hx Abdominal Surgery: No Hx Appendectomy: No Hx Cholecystectomy: No Hx Genitourinary Surgery: No Hx Section: No Hx Orthopedic Surgery: No Other Surgical History: D & C AT 16 Y/O. Anesthesia Reaction: No - PPD History Date: 10/24/14 Results: 0 mm PPD to be Administered?: Yes - Reproductive History Patient is a Female of Child Bearing Age (11 -55 yrs old): Yes Last Menstrual Period: 09/24/17 Patient : No - Smoking Cessation Smoking history: Current every day smoker Have you smoked in the past 12 months: Yes Aproximately how many cigarettes per day: 7 Hx Chewing Tobacco Use: No Initiated information on smoking cessation: Yes 'Breaking Loose' booklet given: 12/05/17 - Substance & Tx. History Hx Alcohol Use: No (DENIES) Hx Substance Use: Yes (HEROIN) Substance Use Type: Heroin Hx Substance Use Treatment: Yes (LAST TX AT [email or web address] - Substances Abused Heroin Route: Injection Frequency: Daily Amount used: 10-15 BAGS Age of first use: 21 Date of Last Use: 12/05/17 Family Disease History - Family Disease History Family Disease History: Diabetes: Father (PARKINSONS DISEASE;[place]-), [place]: Grandparent (BREAST/BRAIN-ALIVE), Other: Father Admission Physical Exam [facility] - Vital Signs Vital Signs: Vital Signs - 24 hr 12/05/17 10:31 Temperature 97.7 F Pulse Rate 95 H Respiratory 18 Rate Blood Pressure 117/78 - Physical General Appearance: Yes: Moderate Distress, Irritable, Anxious HEENTM: Yes: EOMI, Normocephalic, ROBERT, Pharynx Normal Respiratory: Yes: Chest Non-Tender, Lungs Clear, Normal Breath Sounds, No Respiratory Distress Neck: Yes: No masses,lesions,Nodules, Supple, Trachea in good position Breast: Yes: Breast Exam Deferred Cardiology: Yes: Regular Rhythm, Regular Rate, S1, S2 Abdominal: Yes: Normal Bowel Sounds, Non Tender, Flat, Soft Genitourinary: Yes: Other Musculoskeletal: Yes: full range of Motion, Gait Steady Extremities: Yes: Normal Range of Motion, Non-Tender Neurological: Yes: director of home care hospice II-XII NML intact, Fully Oriented, Alert, Motor Strength 5/5 Integumentary: Yes: Dry, Warm, Erythema (RIGHT FOREARM WITH WARMTH,REDNESS AND SWELLING FROM "SKIN POPPING"), Track Maldonado (RIGHT AND LEFT FORE ARMS.) Lymphatic: Yes: Within Normal Limits - Diagnostic (1) Opioid dependence with withdrawal Current Visit: Yes Status: Acute (2) Bronchial asthma Current Visit: Yes Status: Chronic Qualifiers: Asthma severity: mild Asthma complication type: uncomplicated (3) Nicotine dependence Current Visit: Yes Status: Chronic Qualifiers: Nicotine product type: cigarettes Substance use status: in withdrawal Qualified Code(s): F17.213 - Nicotine dependence, cigarettes, with withdrawal (4) History of anemia Current Visit: Yes Status: Suspected (5) Abscess of right arm Current Visit: Yes Status: Acute Cleared for Admission [facility] - Detox or Rehab [facility] Level of Care: Medically Managed Detox Regimen/Protocol: Methadone [facility] Breath Alcohol Content Breath Alcohol Content: 0 Urine Pregancy Test - Result Urine Test Results: Negative- NO Line Present Urine Drug Screen - Results Drug Screen Negative: No Urine Drug Screen Results: OPI-Opiates, OXY-Oxycodone
[2017-12-05] MEDS ORDERED: guaiFENesin/D-METHORPHAN HB 10 ML UNIT-DOSE CUPS PO PRN (13:55)
[2017-12-05] MEDS ORDERED: P-EPHED 60MG/TRIPROLIDI 2.5MG TABLET PO PRN (13:55)
[2017-12-05] MEDS ORDERED: MENTHOL/PHENOL 1 EACH UD MM PRN (13:55)
[2017-12-05] MEDS ORDERED: ACETAMINOPHEN 325 MG TABLET (FP) PO PRN (13:55)
[2017-12-05] MEDS ORDERED: MAGNESIUM CITRATE 300 ML BOTTLE PO PRN (13:55)
[2017-12-05] MEDS ORDERED: LOPERAMIDE HCL 2 MG CAPSULE PO PRN (13:55)
[2017-12-05] MEDS ORDERED: MAGNESIUM HYDROX 2400MG/30ML ORAL SUSPENSION 30 ML CUP PO PRN (13:55)
[2017-12-05] MEDS ORDERED: IBUPROFEN 400 MG TABLET (FP) PO PRN (13:55)
[2017-12-05] MEDS ORDERED: MAG HYDROX/AL HYDROX/SIMETH 30 ML UNIT-DOSE CUP PO PRN (13:55)
[2017-12-05] MEDS ORDERED: ALBUTEROL SO4 18 GM HFA INHALER IH PRN (13:58)
[2017-12-05] MEDS ORDERED: METHADONE HCL 10 MG TABLET (FOR DETOX USE ONLY) PO ONE ×2 (14:50→23:00)
[2017-12-05] MEDS: NICOTINE 14 MG/24 HOURS TOPICAL PATCH TD SCH (15:52)
[2017-12-05] MEDS: chlordiazePOXIDE HCL 25 MG CAPSULE PO PRN ×2 (15:52→22:33)
--- NOTE | 2017-12-05 17:37 | CONSULT ---
[facility] Psychiatric Consult - Data Date of interview: 12/05/17 Admission source: [facility] Identifying data: Pt. is a 27 year old female, single, without kids, unemployed and homeless. This is one of multiple admissions for patient. Pt. admitted to for opiate dependence. Substance Abuse History: Following information confirmed with Ms. Mckeon: - Smoking Cessation. Smoking history: Current every day smoker. Have you smoked in the past 12 months: Yes. Aproximately how many cigarettes per day: 7. Hx Chewing Tobacco Use: No. Initiated information on smoking cessation: Yes. ' Breaking Loose' booklet given: 12/05/17. - Substance & Tx. History. Hx Alcohol Use: No (DENIES). Hx Substance Use: Yes (HEROIN). Substance Use Type: Heroin. Hx Substance Use Treatment: Yes (LAST TX AT [facility]). - Substances Abused. Heroin. Route: Injection. Frequency: Daily. Amount used: 10-15 BAGS. Age of first use: 21. Date of Last Use: 12/05/17 Medical History: Anemia, Asthma Psychiatric History: Pt. denies h/o psychiatric hospitalizations and suicide attempts. Reports OPC last year but none recently due to change of insurance. States she last took medications while in rehab at [facility] on 07/27. Records checked and confirmed. Pt. was prescribed seroquel 400mg qhs, Mirtazapine 15qhs , Gabapentin 600TID, and topamax 50 BID. Pt. denies h/o suicide attempts. Pt. denies suicidal and homicidal ideation. Pt. willing to restart most of her medications. Physical/Sexual Abuse/Trauma History: Denies. Mental Status Exam - Mental Status Exam Alert and Oriented to: Time, Place, Person Cognitive Function: Good Patient Appearance: Unkempt Mood: Withdrawn, Euthymic Affect: Mood Congruent Patient Behavior: Guarded, Cooperative Speech Pattern: Appropriate, Delayed Voice Loudness: Moderately Soft/Quiet Thought Process: Goal Oriented Thought Disorder: Not Present Hallucinations: Denies Suicidal Ideation: Denies Homicidal Ideation: Denies Insight/Judgement: Poor Sleep: Poorly Appetite: Fair Muscle strength/Tone: Normal Gait/Station: Other (Did not observe patient's gait.) Psychiatric Findings - Problem List ([place] 1, 2,3) (1) OCD (obsessive compulsive disorder) Current Visit: Yes Status: Chronic Comment: Self reports. (2) Opioid dependence with withdrawal Current Visit: Yes Status: Acute (3) Nicotine dependence Current Visit: Yes Status: Chronic Qualifiers: Nicotine product type: cigarettes Substance use status: in withdrawal Qualified Code(s): F17.213 - Nicotine dependence, cigarettes, with withdrawal (4) Substance induced mood disorder Current Visit: Yes Status: Suspected (5) MARITO (generalized anxiety disorder) Current Visit: Yes Status: Chronic Comment: Self reports. - Initial Treatment Plan Initial Treatment Plan: Psychoeducation provided. Detoxification in progress. Seroquel 100mg qhs (reduce dosage, has not taken seroquel since 07/2017)+ Mirtazapine 15 qhs and Gabapentin 400TID (reduce dosage, reports not taking gabapentin since 07/2017). Benefits and side effects discussed. Verbal consent given. Will continue to monitor patient.
[2017-12-05] MEDS: hydrOXYzine PAMOATE 50 MG CAPSULE (FP) PO PRN (18:40)
[2017-12-05] MEDS ORDERED: CEPHALEXIN MONOHYDRATE 250 MG CAPSULE (FP) PO ONE (19:00)
[2017-12-05 19:52] LABS: HEMATOCRIT 37.6 % (32.4-45.2); HEMOGLOBIN 12.3 GM/dL (10.7-15.3); MCH 26.6 pg (25.7-33.7); MCHC 32.6 g/dl (32.0-36.0); MEAN CELL VOLUME 81.4 fl (80-96); PLATELET COUNT 277 K/MM3 (134-434); RBC 4.61 M/mm3 (3.60-5.2); RDW 13.6 % (11.6-15.6); WHITE BLOOD COUNT 11.4 K/mm3 (4.0-10.0)
[2017-12-05 19:57] LABS: CHLORIDE 104 mmol/L (98-107); POTASSIUM 3.8 mmol/L (3.5-5.1); SODIUM 140 mmol/L (136-145)
[2017-12-05 20:02] LABS: URINE APPEARANCE TURBID; URINE BILIRUBIN NEGATIVE (NEGATIVE); URINE BLOOD NEGATIVE (NEGATIVE); URINE COLOR YELLOW; URINE GLUCOSE (UA) NEGATIVE (NEGATIVE); URINE KETONE TRACE (NEGATIVE); URINE LEUK ESTERASE TRACE (NEGATIVE); URINE NITRITE NEGATIVE (NEGATIVE)
[2017-12-05 20:04] LABS: ALBUMIN 3.9 g/dl (3.4-5.0); ALK PHOS 57 U/L (45-117); ANION GAP 8 (8-16); BILIRUBIN,TOTAL 0.5 mg/dL (0.2-1.0); BLOOD UREA NITROGEN 21 mg/dL (7-18); CALCIUM 8.9 mg/dL (8.5-10.1); CO2 28 mmol/L (21-32); CREATININE 0.9 mg/dL (0.55-1.02); GLUCOSE,RANDOM 116 mg/dL (74-106); SGOT/AST 11 U/L (15-37); SGPT/ALT 17 U/L (12-78); TOT PROT 7.6 g/dl (6.4-8.2)
[2017-12-05 20:27] LABS: URINE PROTEIN 1+ (NEGATIVE)
[2017-12-05 20:34] LABS: EPI CELLS RARE /HPF (FEW); URINE MUCUS MODERATE
[2017-12-05] MEDS: QUEtiapine FUMARATE 100 MG TABLET (FP) PO SCH (22:31)
[2017-12-05] MEDS: THIAMINE HCL 100 MG TABLET (FP) PO SCH (22:31)
[2017-12-05] MEDS: GABAPENTIN 400 MG CAPSULE (FP) PO SCH (22:31)
[2017-12-05] MEDS: MIRTAZAPINE 15 MG TABLET (FP) PO SCH (22:32)
[2017-12-06] MEDS: CEPHALEXIN MONOHYDRATE 250 MG CAPSULE (FP) PO SCH ×5 (00:12→23:55)
[2017-12-06] MEDS: GABAPENTIN 400 MG CAPSULE (FP) PO SCH ×3 (05:24→22:19)
[2017-12-06] MEDS ORDERED: METHADONE HCL 10 MG TABLET (FOR DETOX USE ONLY) PO ONE (10:00)
[2017-12-06] MEDS: PRENATAL VITAMINS W/ FOLIC ACID TABLET (FP) PO SCH (10:30)
[2017-12-06] MEDS: NICOTINE 14 MG/24 HOURS TOPICAL PATCH TD SCH (10:31)
[2017-12-06] MEDS: chlordiazePOXIDE HCL 25 MG CAPSULE PO PRN ×3 (10:33→23:55)
--- NOTE | 2017-12-06 12:27 | EKG ---
Test Reason : Blood Pressure : / mmHG Vent. Rate : 085 BPM Atrial Rate : 085 BPM P-R Int : 102 ms QRS Dur : 086 ms QT Int : 356 ms P-R-T Axes : 069 078 021 degrees QTc Int : 423 ms SINUS RHYTHM WITH SINUS ARRHYTHMIA WITH SHORT [place] NONSPECIFIC T WAVE ABNORMALITY ABNORMAL ECG WHEN COMPARED WITH ECG OF 05-DEC-2017 16:07, NO SIGNIFICANT CHANGE WAS FOUND Confirmed by MD MANUELITO, CEDRICK ([id number]) on 12/06/2017 12:27:25 PM Referred By: Confirmed By:CEDRICK BILLINGS MD
--- NOTE | 2017-12-06 12:28 | EKG ---
Test Reason : Blood Pressure : / mmHG Vent. Rate : 076 BPM Atrial Rate : 076 BPM P-R Int : 118 ms QRS Dur : 106 ms QT Int : 370 ms P-R-T Axes : 063 069 023 degrees QTc Int : 416 ms NORMAL SINUS RHYTHM NONSPECIFIC T WAVE ABNORMALITY ABNORMAL ECG WHEN COMPARED WITH ECG OF 21-JUL-2017 12:31, T WAVE INVERSION NOW EVIDENT IN ANTERIOR LEADS Confirmed by MD MANUELITO, CEDRICK ([id number]) on 12/06/2017 12:28:14 PM Referred By: Confirmed By:CEDRICK BILLINGS MD
--- NOTE | 2017-12-06 12:49 | PN ---
BHS COWS - Scale Resting Pulse: 1= [place] 81-100 Sweatin=Flushed/Facial Moisture Restless Observation: 1= Difficult to Sit Still Pupil Size: 0= Normal to Room Light Bone or Joint Aches: 1= Mild Discomfort Runny Nose/ Eye Tearin= Nasal Congestion GI Upset > 30mins: 2= Nausea/Diarrhea Tremor Observation of Outstretched Hands: 2= Slight Tremor Visible Yawning Observation: 1= 1-2x During Session Anxiety or Irritability: 2=Irritable/Anxious Goose Flesh Skin: 0=Smooth Skin COWS Score: 13 BHS Progress Note (SOAP) Subjective: sweats vomit abd cramping Objective: 12/06/17 12:47 Vital Signs Temperature 98 F 12/06/17 11:14 Pulse Rate 99 H 12/06/17 11:14 Respiratory Rate 20 12/06/17 11:14 Blood Pressure 106/62 12/06/17 11:14 O2 Sat by Pulse Oximetry (%) Laboratory Last Values WBC 11.4 K/mm3 (4.0-10.0) H D 12/05/17 15:00 RBC 4.61 M/mm3 (3.60-5.2) 12/05/17 15:00 Hgb 12.3 GM/dL (10.7-15.3) 12/05/17 15:00 Hct 37.6 % (32.4-45.2) 12/05/17 15:00 MCV 81.4 fl (80-96) 12/05/17 15:00 MCH 26.6 pg (25.7-33.7) 12/05/17 15:00 MCHC 32.6 g/dl (32.0-36.0) 12/05/17 15:00 RDW 13.6 % (11.6-15.6) 12/05/17 15:00 Plt Count 277 K/MM3 (134-434) 12/05/17 15:00 MPV 10.0 fl (7.5-11.1) 12/05/17 15:00 Sodium 140 mmol/L (136-145) 12/05/17 15:00 Potassium 3.8 mmol/L (3.5-5.1) 12/05/17 15:00 Chloride 104 mmol/L (98-107) 12/05/17 15:00 Carbon Dioxide 28 mmol/L (21-32) 12/05/17 15:00 Anion Gap 8 (8-16) 12/05/17 15:00 BUN 21 mg/dL (7-18) H 12/05/17 15:00 Creatinine 0.9 mg/dL (0.55-1.02) 12/05/17 15:00 Creat Clearance w eGFR > 60 (>60) 12/05/17 15:00 Random Glucose 116 mg/dL (74-106) H 12/05/17 15:00 Calcium 8.9 mg/dL (8.5-10.1) 12/05/17 15:00 Total Bilirubin 0.5 mg/dL (0.2-1.0) D 12/05/17 15:00 AST 11 U/L (15-37) L 12/05/17 15:00 ALT 17 U/L (12-78) 12/05/17 15:00 Alkaline Phosphatase 57 U/L (45-117) 12/05/17 15:00 Total Protein 7.6 g/dl (6.4-8.2) 12/05/17 15:00 Albumin 3.9 g/dl (3.4-5.0) 12/05/17 15:00 Urine Color Yellow 12/05/17 15:50 Urine Appearance Turbid 12/05/17 15:50 Urine pH 5.0 (5.0-8.0) 12/05/17 15:50 Ur Specific [place] 1.029 (1.001-1.035) 12/05/17 15:50 Urine Protein 1+ (NEGATIVE) H 12/05/17 15:50 Urine Glucose (UA) Negative (NEGATIVE) 12/05/17 15:50 Urine Ketones Trace (NEGATIVE) H 12/05/17 15:50 Urine Blood Negative (NEGATIVE) 12/05/17 15:50 Urine Nitrite Negative (NEGATIVE) 12/05/17 15:50 Urine Bilirubin Negative (NEGATIVE) 12/05/17 15:50 Urine Urobilinogen 2.0 mg/dL (0.2-1.0) H 12/05/17 15:50 Ur Leukocyte Esterase Trace (NEGATIVE) 12/05/17 15:50 Urine WBC (Auto) 4 /hpf (3-5) 12/05/17 15:50 Urine RBC (Auto) 3 /hpf (0-3) 12/05/17 15:50 Ur Epithelial Cells Rare /HPF (FEW) 12/05/17 15:50 Urine Mucus Moderate 12/05/17 15:50 RPR Titer Nonreactive (NONREACTIVE) 12/05/17 15:00 labs noted Assessment: 12/06/17 12:48 withdrawal sx Plan: continue detox
[2017-12-06] MEDS: hydrOXYzine PAMOATE 50 MG CAPSULE (FP) PO PRN (15:33)
[2017-12-06] MEDS: NICOTINE POLACRILEX 2 MG GUM BUC PRN (20:10)
[2017-12-06] MEDS: CYCLOBENZAPRINE HCL 5 MG TABLET PO SCH (22:19)
[2017-12-06] MEDS: THIAMINE HCL 100 MG TABLET (FP) PO SCH (22:19)
[2017-12-06] MEDS: QUEtiapine FUMARATE 100 MG TABLET (FP) PO SCH (22:19)
[2017-12-06] MEDS: MIRTAZAPINE 15 MG TABLET (FP) PO SCH (22:19)
[2017-12-07] MEDS: CEPHALEXIN MONOHYDRATE 250 MG CAPSULE (FP) PO SCH ×4 (05:42→23:54)
[2017-12-07] MEDS: GABAPENTIN 400 MG CAPSULE (FP) PO SCH ×3 (05:42→22:18)
[2017-12-07] MEDS: CYCLOBENZAPRINE HCL 5 MG TABLET PO SCH ×3 (05:42→22:16)
--- NOTE | 2017-12-07 09:32 | PN ---
BHS COWS - Scale Resting Pulse: 1= [place] 81-100 Sweatin= Chills/Flushing Restless Observation: 1= Difficult to Sit Still Pupil Size: 0= Normal to Room Light Bone or Joint Aches: 1= Mild Discomfort Runny Nose/ Eye Tearin= Nasal Congestion GI Upset > 30mins: 1= Stomach Cramp Tremor Observation of Outstretched Hands: 2= Slight Tremor Visible Yawning Observation: 0= None Anxiety or Irritability: 1=Feels Anxious/Irritable Goose Flesh Skin: 0=Smooth Skin COWS Score: 9 BHS Progress Note (SOAP) Subjective: sweat joint aches restlessness Objective: 12/07/17 09:32 Vital Signs Temperature 97.5 F L 12/07/17 06:00 Pulse Rate 73 12/07/17 06:00 Respiratory Rate 18 12/07/17 06:00 Blood Pressure 100/55 12/07/17 06:00 O2 Sat by Pulse Oximetry (%) Laboratory Last Values WBC 11.4 K/mm3 (4.0-10.0) H D 12/05/17 15:00 RBC 4.61 M/mm3 (3.60-5.2) 12/05/17 15:00 Hgb 12.3 GM/dL (10.7-15.3) 12/05/17 15:00 Hct 37.6 % (32.4-45.2) 12/05/17 15:00 MCV 81.4 fl (80-96) 12/05/17 15:00 MCH 26.6 pg (25.7-33.7) 12/05/17 15:00 MCHC 32.6 g/dl (32.0-36.0) 12/05/17 15:00 RDW 13.6 % (11.6-15.6) 12/05/17 15:00 Plt Count 277 K/MM3 (134-434) 12/05/17 15:00 MPV 10.0 fl (7.5-11.1) 12/05/17 15:00 Sodium 140 mmol/L (136-145) 12/05/17 15:00 Potassium 3.8 mmol/L (3.5-5.1) 12/05/17 15:00 Chloride 104 mmol/L (98-107) 12/05/17 15:00 Carbon Dioxide 28 mmol/L (21-32) 12/05/17 15:00 Anion Gap 8 (8-16) 12/05/17 15:00 BUN 21 mg/dL (7-18) H 12/05/17 15:00 Creatinine 0.9 mg/dL (0.55-1.02) 12/05/17 15:00 Creat Clearance w eGFR > 60 (>60) 12/05/17 15:00 Random Glucose 116 mg/dL (74-106) H 12/05/17 15:00 Calcium 8.9 mg/dL (8.5-10.1) 12/05/17 15:00 Total Bilirubin 0.5 mg/dL (0.2-1.0) D 12/05/17 15:00 AST 11 U/L (15-37) L 12/05/17 15:00 ALT 17 U/L (12-78) 12/05/17 15:00 Alkaline Phosphatase 57 U/L (45-117) 12/05/17 15:00 Total Protein 7.6 g/dl (6.4-8.2) 12/05/17 15:00 Albumin 3.9 g/dl (3.4-5.0) 12/05/17 15:00 Urine Color Yellow 12/05/17 15:50 Urine Appearance Turbid 12/05/17 15:50 Urine pH 5.0 (5.0-8.0) 12/05/17 15:50 Ur Specific [place] 1.029 (1.001-1.035) 12/05/17 15:50 Urine Protein 1+ (NEGATIVE) H 12/05/17 15:50 Urine Glucose (UA) Negative (NEGATIVE) 12/05/17 15:50 Urine Ketones Trace (NEGATIVE) H 12/05/17 15:50 Urine Blood Negative (NEGATIVE) 12/05/17 15:50 Urine Nitrite Negative (NEGATIVE) 12/05/17 15:50 Urine Bilirubin Negative (NEGATIVE) 12/05/17 15:50 Urine Urobilinogen 2.0 mg/dL (0.2-1.0) H 12/05/17 15:50 Ur Leukocyte Esterase Trace (NEGATIVE) 12/05/17 15:50 Urine WBC (Auto) 4 /hpf (3-5) 12/05/17 15:50 Urine RBC (Auto) 3 /hpf (0-3) 12/05/17 15:50 Ur Epithelial Cells Rare /HPF (FEW) 12/05/17 15:50 Urine Mucus Moderate 12/05/17 15:50 RPR Titer Nonreactive (NONREACTIVE) 12/05/17 15:00 lab noted Assessment: 12/07/17 09:33 withdrawal sx Plan: continue detox
[2017-12-07] MEDS ORDERED: METHADONE HCL 5 MG TABLET (FOR DETOX USE ONLY) PO ONE (10:00)
[2017-12-07] MEDS: PRENATAL VITAMINS W/ FOLIC ACID TABLET (FP) PO SCH (10:34)
[2017-12-07] MEDS: NICOTINE 14 MG/24 HOURS TOPICAL PATCH TD SCH (10:35)
[2017-12-07] MEDS: chlordiazePOXIDE HCL 25 MG CAPSULE PO PRN ×2 (10:38→22:19)
[2017-12-07] MEDS: hydrOXYzine PAMOATE 50 MG CAPSULE (FP) PO PRN ×2 (13:28→18:51)
[2017-12-07] MEDS: NICOTINE POLACRILEX 2 MG GUM BUC PRN (13:28)
[2017-12-07] MEDS: MIRTAZAPINE 15 MG TABLET (FP) PO SCH (22:17)
[2017-12-07] MEDS: QUEtiapine FUMARATE 100 MG TABLET (FP) PO SCH (22:17)
[2017-12-07] MEDS: THIAMINE HCL 100 MG TABLET (FP) PO SCH (22:17)
[2017-12-08] MEDS: CYCLOBENZAPRINE HCL 5 MG TABLET PO SCH ×3 (06:01→22:19)
[2017-12-08] MEDS: GABAPENTIN 400 MG CAPSULE (FP) PO SCH ×3 (06:01→22:19)
[2017-12-08] MEDS ORDERED: METHADONE HCL 5 MG TABLET (FOR DETOX USE ONLY) PO ONE (10:00)
[2017-12-08] MEDS: PRENATAL VITAMINS W/ FOLIC ACID TABLET (FP) PO SCH (10:25)
[2017-12-08] MEDS: NICOTINE 14 MG/24 HOURS TOPICAL PATCH TD SCH (10:25)
--- NOTE | 2017-12-08 12:37 | PN ---
BHS Progress Note (SOAP) Subjective: diarrhea restless shakes Objective: 12/08/17 12:36 Vital Signs Temperature 97.3 F L 12/08/17 10:34 Pulse Rate 105 H 12/08/17 10:34 Respiratory Rate 18 12/08/17 10:34 Blood Pressure 100/60 12/08/17 10:34 O2 Sat by Pulse Oximetry (%) Assessment: 12/08/17 12:36 withdrawal sx Plan: continue detox
[2017-12-08] MEDS: CEPHALEXIN MONOHYDRATE 250 MG CAPSULE (FP) PO SCH ×4 (13:00→23:58)
[2017-12-08] MEDS: hydrOXYzine PAMOATE 50 MG CAPSULE (FP) PO PRN (15:06)
--- NOTE | 2017-12-08 16:22 | PN ---
[facility] Progress Note Note: Pt c/o anxiety and that she cannot sleep Provider offered vistaril but pt stated "its not doing anything for me" Pt completed her PRN doses of librium earlier. 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
--- NOTE | 2017-12-08 17:28 | PN ---
Psychiatric Progress Note Vital Signs: Vital Signs Period Temp Pulse Resp BP Sys/Ballesteros Pulse Ox Last 24 Hr 96.6 F-98.2 F 84-105 18-20 95-103/59-76 Date of Session: 12/08/17 Chief Complaint:: I'm having difficulty sleeping. HPI: Pt. admitted to for opiate dependence. ROS: Unremarkable Current Medications: Active Medications Generic Name Dose Route Start Last Admin Trade Name Freq PRN Reason Stop Dose Admin Acetaminophen 650 mg 12/05/17 13:55 Tylenol - PO Q4H PRN FEVER Al Hydroxide/Mg Hydroxide 30 ml 12/05/17 13:55 Mylanta Oral Suspension - PO Q6H PRN DYSPEPSIA Albuterol Sulfate 2 puff 12/05/17 13:58 Ventolin Hfa Inhaler - IH Q4H PRN ASTHMA Cephalexin HCl 250 mg 12/06/17 00:00 12/08/17 13:00 Keflex - PO 250 mg Q6HPO KLAUDIA Administration Chlordiazepoxide HCl 25 mg 12/08/17 16:03 Librium - PO 12/08/17 16:04 ONCE ONE Cyclobenzaprine HCl 5 mg 12/06/17 22:00 12/08/17 14:56 Cyclobenzaprine Hcl PO 5 mg TID KLAUDIA Administration Eucalyptus/Menthol/Phenol/Sorbitol 1 each 12/05/17 13:55 Cepastat Lozenge - MM Q4H PRN SORE THROAT Gabapentin 400 mg 12/05/17 22:00 12/08/17 14:56 Neurontin - PO 400 mg TID KLAUDIA Administration Guaifenesin 10 ml 12/05/17 13:55 Robitussin Dm - PO Q6H PRN COUGH Hydroxyzine Pamoate 50 mg 12/05/17 13:55 12/08/17 15:06 Vistaril - PO 50 mg Q4H PRN Administration AGITATION Ibuprofen 400 mg 12/05/17 13:55 Motrin - PO Q6H PRN PAIN LEVEL 4-6 Loperamide HCl 4 mg 12/05/17 13:55 12/08/17 10:28 Imodium - PO 4 mg Q6H PRN Administration DIARRHEA Magnesium Citrate 300 ml 12/05/17 13:55 Citroma - PO Q48H PRN CONSTIPATION Magnesium Hydroxide 30 ml 12/05/17 13:55 Milk Of Magnesia - PO DAILY PRN CONSTIPATION Methadone HCl 5 mg 12/10/17 06:00 Dolophine - PO 12/10/17 06:01 ONCE@0600 ONE Methadone HCl 10 mg 12/09/17 10:00 Dolophine - PO 12/09/17 10:01 ONCE ONE Mirtazapine 15 mg 12/05/17 22:00 12/07/17 22:17 Remeron - PO 15 mg HS KLAUDIA Administration Nicotine 14 mg 12/05/17 15:00 12/08/17 10:25 Nicoderm Patch - TD 14 mg DAILY KLAUDIA Administration Nicotine Polacrilex 2 mg 12/05/17 13:55 12/07/17 13:28 Nicorette Gum - BUC 2 mg Q2H PRN Administration NICOTINE REPLACEMENT RX Multivit/Folic Acid/Iron 1 tab 12/06/17 10:00 12/08/17 10:25 Vitamins (Sjr) - PO 1 tab DAILY LKAUDIA Administration Pseudoephedrine/Triprolidine 1 combo 12/05/17 13:55 Actifed - PO TID PRN NASAL CONGESTION Quetiapine Fumarate 100 mg 12/05/17 22:00 12/07/17 22:17 Seroquel - PO 100 mg HS KLAUDIA Administration Thiamine HCl 100 mg 12/05/17 22:00 12/07/17 22:17 Vitamin B1 - PO 100 mg HS KLAUDIA Administration Medication(s) Change(s): Will add ambien for sleep. Current Side Effect: No Lab tests ordered: No Lab tests reviewed: Yes Provider note:: Ortho Nurse approached patient concerning psychiatric reconsultation. Pt. c/o difficulty sleeping. Reports taking ambien and xanax at home. Refusing increase in current medications. Adamant about only accepting ambien for sleep. Stated increase in current medications does not improve insomnia. Ambien 5mg qhs PRN ordered for insomnia. Benefits and side effects ( sleep walking) discussed. Verbal consent given. Will continue to monitor patient. Total face to face time:: 25 Mental Status Exam - Mental Status Exam Alert and Oriented to: Time, Place, Person Cognitive Function: Good Patient Appearance: Well Groomed Mood: Anxious, Hopeful Affect: Appropriate Patient Behavior: Talkative, Cooperative Speech Pattern: Appropriate Voice Loudness: Normal Thought Process: Goal Oriented Thought Disorder: Not Present Hallucinations: Denies Suicidal Ideation: Denies Homicidal Ideation: Denies Insight/Judgement: Poor Sleep: Poorly Appetite: Fair Muscle strength/Tone: Normal Gait/Station: Normal Psychiatric Treatment Plan - Problem List (1) OCD (obsessive compulsive disorder) Current Visit: Yes Comment: Self reports. (2) Opioid dependence with withdrawal Current Visit: Yes (3) Nicotine dependence Current Visit: Yes Qualifiers: Nicotine product type: cigarettes Substance use status: in withdrawal Qualified Code(s): F17.213 - Nicotine dependence, cigarettes, with withdrawal (4) Substance induced mood disorder Current Visit: Yes (5) MARITO (generalized anxiety disorder) Current Visit: Yes Comment: Self reports. (6) Insomnia Current Visit: Yes
[2017-12-08] MEDS ORDERED: chlordiazePOXIDE HCL 25 MG CAPSULE PO ONE (17:45)
[2017-12-08] MEDS ORDERED: ZOLPIDEM TARTRATE 5 MG TABLET PO PRN (22:00)
[2017-12-08] MEDS: MIRTAZAPINE 15 MG TABLET (FP) PO SCH (22:19)
[2017-12-08] MEDS: QUEtiapine FUMARATE 100 MG TABLET (FP) PO SCH (22:19)
[2017-12-08] MEDS: THIAMINE HCL 100 MG TABLET (FP) PO SCH (22:19)
[2017-12-09] MEDS: hydrOXYzine PAMOATE 50 MG CAPSULE (FP) PO PRN (01:51)
[2017-12-09] MEDS: CEPHALEXIN MONOHYDRATE 250 MG CAPSULE (FP) PO SCH ×2 (07:00→14:30)
[2017-12-09] MEDS: GABAPENTIN 400 MG CAPSULE (FP) PO SCH ×2 (07:00→14:30)
[2017-12-09] MEDS: CYCLOBENZAPRINE HCL 5 MG TABLET PO SCH (07:00)
--- NOTE | 2017-12-09 09:55 | PN ---
BHS Progress Note (SOAP) Subjective: general body ache tremor sweat Objective: 12/09/17 09:54 Vital Signs Temperature 97.3 F L 12/09/17 09:47 Pulse Rate 84 12/09/17 09:47 Respiratory Rate 16 12/09/17 09:47 Blood Pressure 93/58 12/09/17 09:47 O2 Sat by Pulse Oximetry (%) Laboratory Last Values WBC 11.4 K/mm3 (4.0-10.0) H D 12/05/17 15:00 RBC 4.61 M/mm3 (3.60-5.2) 12/05/17 15:00 Hgb 12.3 GM/dL (10.7-15.3) 12/05/17 15:00 Hct 37.6 % (32.4-45.2) 12/05/17 15:00 MCV 81.4 fl (80-96) 12/05/17 15:00 MCH 26.6 pg (25.7-33.7) 12/05/17 15:00 MCHC 32.6 g/dl (32.0-36.0) 12/05/17 15:00 RDW 13.6 % (11.6-15.6) 12/05/17 15:00 Plt Count 277 K/MM3 (134-434) 12/05/17 15:00 MPV 10.0 fl (7.5-11.1) 12/05/17 15:00 Sodium 140 mmol/L (136-145) 12/05/17 15:00 Potassium 3.8 mmol/L (3.5-5.1) 12/05/17 15:00 Chloride 104 mmol/L (98-107) 12/05/17 15:00 Carbon Dioxide 28 mmol/L (21-32) 12/05/17 15:00 Anion Gap 8 (8-16) 12/05/17 15:00 BUN 21 mg/dL (7-18) H 12/05/17 15:00 Creatinine 0.9 mg/dL (0.55-1.02) 12/05/17 15:00 Creat Clearance w eGFR > 60 (>60) 12/05/17 15:00 Random Glucose 116 mg/dL (74-106) H 12/05/17 15:00 Calcium 8.9 mg/dL (8.5-10.1) 12/05/17 15:00 Total Bilirubin 0.5 mg/dL (0.2-1.0) D 12/05/17 15:00 AST 11 U/L (15-37) L 12/05/17 15:00 ALT 17 U/L (12-78) 12/05/17 15:00 Alkaline Phosphatase 57 U/L (45-117) 12/05/17 15:00 Total Protein 7.6 g/dl (6.4-8.2) 12/05/17 15:00 Albumin 3.9 g/dl (3.4-5.0) 12/05/17 15:00 Urine Color Yellow 12/05/17 15:50 Urine Appearance Turbid 12/05/17 15:50 Urine pH 5.0 (5.0-8.0) 12/05/17 15:50 Ur Specific [place] 1.029 (1.001-1.035) 12/05/17 15:50 Urine Protein 1+ (NEGATIVE) H 12/05/17 15:50 Urine Glucose (UA) Negative (NEGATIVE) 12/05/17 15:50 Urine Ketones Trace (NEGATIVE) H 12/05/17 15:50 Urine Blood Negative (NEGATIVE) 12/05/17 15:50 Urine Nitrite Negative (NEGATIVE) 12/05/17 15:50 Urine Bilirubin Negative (NEGATIVE) 12/05/17 15:50 Urine Urobilinogen 2.0 mg/dL (0.2-1.0) H 12/05/17 15:50 Ur Leukocyte Esterase Trace (NEGATIVE) 12/05/17 15:50 Urine WBC (Auto) 4 /hpf (3-5) 12/05/17 15:50 Urine RBC (Auto) 3 /hpf (0-3) 12/05/17 15:50 Ur Epithelial Cells Rare /HPF (FEW) 12/05/17 15:50 Urine Mucus Moderate 12/05/17 15:50 RPR Titer Nonreactive (NONREACTIVE) 12/05/17 15:00 lab noted Assessment: 12/09/17 09:55 withdrawal sx Plan: continue detox
[2017-12-09] MEDS ORDERED: METHADONE HCL 10 MG TABLET (FOR DETOX USE ONLY) PO ONE (10:00)
[2017-12-09] MEDS: NICOTINE 14 MG/24 HOURS TOPICAL PATCH TD SCH (10:36)
[2017-12-09] MEDS: PRENATAL VITAMINS W/ FOLIC ACID TABLET (FP) PO SCH (10:36)
[2017-12-09] MEDS: NICOTINE POLACRILEX 2 MG GUM BUC PRN (10:39)
--- NOTE | 2017-12-09 11:56 | DS ---
[facility] Detox Discharge Summary Admission Date: 12/05/17 Discharge Date: 12/09/17 - History Present History: Opioid Dependence - Physical Exam Results Vital Signs: Vital Signs Temperature 97.3 F L 12/09/17 09:47 Pulse Rate 84 12/09/17 09:47 Respiratory Rate 16 12/09/17 09:47 Blood Pressure 93/58 12/09/17 09:47 O2 Sat by Pulse Oximetry (%) Pertinent Admission Physical Exam Findings: patient insists to leave the detox facility today that "I have to find him" redirect to focus on addiction management and craving coping encourage utilizing emergency services if necessary patient is alert oriented x 3 no acute distress - Treatment Hospital Course: Detox Protocol Followed, Responded well Patient has Accepted a Rehab Referral to: as per counselor arranged - Medication Discharge Medications: Ambulatory Orders Albuterol Sulfate Inhaler - [Ventolin HFA Inhaler -] 2 inh PO Q4H PRN 06/09/15 Gabapentin [Neurontin -] 600 mg PO TID #120 cap 08/13/17 Mirtazapine [Remeron -] 30 mg PO HS #30 tablet 08/13/17 Quetiapine Fumarate [Seroquel -] 300 mg PO HS #30 tablet 08/13/17 Topiramate [Topamax -] 100 mg PO BID #60 tablet 08/13/17 Suvorexant [Belsomra] 10 mg PO HS 12/05/17 - Diagnosis (1) Opioid dependence with withdrawal Current Visit: Yes Status: Acute - AMA Did Patient Leave Against Medical Advice: Yes
[2017-12-09 14:22] VITALS: BP 108/86; PULSE 104; TEMP 98.4
[2017-12-10] MEDS ORDERED: METHADONE HCL 5 MG TABLET (FOR DETOX USE ONLY) PO ONE (06:00)
== END 2017-12-09 14:35 | disposition left against medical advice (07) | DRG 770 ==
LOC: YASAS 10:18 → Y6N 13:54
PROVIDERS: ADMIT Internal Medicine; ATTEND Internal Medicine
PROC: HZ2ZZZZ Detoxification Services for Substance Abuse Treatment (ICD-10-PCS; principal; 2017-12-05)
DX: F11.23 Opioid dependence with withdrawal (principal); F17.213 Nicotine dependence, cigarettes, with withdrawal; F42.9 Obsessive-compulsive disorder, unspecified; F19.24 Other psychoactive substance dependence with psychoactive substance-induced mood disorder; F41.1 Generalized anxiety disorder; G47.00 Insomnia, unspecified; L02.413 Cutaneous abscess of right upper limb; Z91.018 Allergy to other foods
CPT/HCPCS: 36415; 80053; 81003; 81015; 85027; 86593; 93005; 93010

== ENCOUNTER 2018-01-31 12:21 | Inpatient (IN) | payer OTHER ==
[2018-01-31 12:48] VITALS: BMI 20.7
--- NOTE | 2018-01-31 13:50 | HP ---
COWS - Scale Resting Pulse: 1= [place] 81-100 Sweatin= Chills/Flushing Restless Observation: 1= Difficult to Sit Still Pupil Size: 0= Normal to Room Light Bone or Joint Aches: 1= Mild Discomfort Runny Nose/ Eye Tearin= Nasal Congestion GI Upset > 30mins: 1= Stomach Cramp Tremor Observation: 2= Slight Tremor Visible Yawning Observation: 0= None Anxiety or Irritability: 1=Feels Anxious/Irritable Goose Flesh Skin: 0=Smooth Skin COWS Score: 9 CIWA Score - CIWA Score Nausea/Vomitin-Mild Nausea/No Vomiting Muscle Tremors: 4-Moderate,w/Arms Extend Anxiety: 4-Mod. Anxious/Guarded Agitation: 1-Slight > Activity Paroxysmal Sweats: 1-Minimal Palms Moist Orientation: 1-Uncertain about Date Tacttile Disturbances: 1-Very Mild Itch/Numbness Auditory Disturbances: 1-Very Mild Visual Disturbances: 1-Very Mild Sensitivity Headache: 2-Mild CIWA-Ar Total Score: 17 Admission ROS S - HPI Chief Complaint: I need to stop using, I don't want to , I want to see my birthday. It's horrible, being an addict Allergies/Adverse Reactions: Allergies Allergy/AdvReac Type Severity Reaction Status Date / Time blueberry Allergy Severe Swelling Verified 12/05/17 13:22 nut - unspecified Allergy Severe Swelling Verified 12/05/17 13:22 No Known Drug Allergies Allergy Verified 12/05/17 13:22 nuts Allergy Severe Swelling Uncoded 12/05/17 13:22 History of Present Illness: 27 yo woman here for detox from heroin, alcohol, xanax - no seizures or black outs but has overdosed multiple times. History of methadone program 'years ago' , detox, rehab. Currently homeless, interested in rehab after detox. Exam Limitations: Clinical Condition - Ebola screening Have you traveled outside of the country in the last 21 days: No (N) Have you had contact with anyone from an Ebola affected area: No Have you been sick,other than usual withdrawal symptoms: No Do you have a fever: No - Review of Systems Constitutional: Loss of Appetite, Malaise, Changes in sleep, Weakness EENT: reports: Blurred Vision, Nose Congestion Respiratory: reports: No Symptoms reported Cardiac: reports: No Symptoms Reported GI: reports: Poor Appetite : reports: Frequency Musculoskeletal: reports: Back Pain, Muscle Pain Integumentary: reports: No Symptoms Reported Neuro: reports: Headache, Tremors Endocrine: reports: No Symptoms Reported Hematology: reports: No Symptoms Reported Psychiatric: reports: Judgement Intact, Mood/Affect Appropiate, Anxious Other Systems: Reviewed and Negative Patient History - Patient Medical History Hx Anemia: No Hx Asthma: Yes (MDI) Hx Chronic Obstructive Pulmonary Disease (COPD): No Hx Cardiac Disorders: No Hx Hypertension: No Hx Hypercholesterolemia: No HX Cerebrovascular Accident: No Hx Seizures: No Hx Diabetes: No Hx Gastrointestinal Disorders: No Hx Genitourinary Disorders: No Hx Sexually Transmitted Disorders: No Hx Renal Disease (ESRD): No Hx Thyroid Disease: No Hx Human Immunodeficiency Virus (HIV): No Hx Hepatitis C: No Hx Depression: Yes ("ANXIETY/INSOMNIA--WAS ON XANAX AND AMBIEN BUT STOPPED SEEING MY PSYCH--") Hx Suicide Attempt: No (DENIES) Hx Bipolar Disorder: No Hx Schizophrenia: No - Patient Surgical History Past Surgical History: Yes Hx Neurologic Surgery: No Hx Cataract Extraction: No Hx Cardiac Surgery: No Hx Lung Surgery: No Hx Breast Surgery: No Hx Breast Biopsy: No Hx Abdominal Surgery: No Hx Appendectomy: No Hx Cholecystectomy: No Hx Genitourinary Surgery: No Hx Section: No Hx Orthopedic Surgery: No Other Surgical History: D & C AT 16 Y/O. Anesthesia Reaction: No - PPD History Previous Implant?: Yes Documented Results: Negative w/proof Implanted On Prior [facility] Admission?: Yes Date: 12/07/17 Results: 0 mm PPD to be Administered?: No - Reproductive History Patient is a Female of Child Bearing Age (11 -55 yrs old): Yes Last Menstrual Period: 09/24/17 - Smoking Cessation Smoking history: Current every day smoker Have you smoked in the past 12 months: Yes Aproximately how many cigarettes per day: 20 Hx Chewing Tobacco Use: No Initiated information on smoking cessation: Yes 'Breaking Loose' booklet given: 01/31/18 (give on floor) - Substance & Tx. History Hx Alcohol Use: Yes Hx Substance Use: Yes Substance Use Type: Alcohol, Cocaine, Heroin, Tranquilizers Hx Substance Use Treatment: Yes (detox, rehab, hx methadone program) - Substances Abused heroin Route: Injection Frequency: Daily Amount used: 1 bundle Age of first use: 21 Date of Last Use: 01/31/18 cocaine Route: Injection Frequency: 1-3 times last 30 days Amount used: $50 Age of first use: 16 Date of Last Use: 01/26/18 alprazolam Route: Oral Frequency: Daily Amount used: 4mg Age of first use: 23 Date of Last Use: 01/30/18 Alcohol Route: Oral Frequency: 3-6 times per week Amount used: 1 pint vodka Age of first use: 16 Date of Last Use: 01/30/18 Family Disease History - Family Disease History Family Disease History: Diabetes: Father (PARKINSONS DISEASE;[place]-), [place]: Grandparent (BREAST/BRAIN-ALIVE), Other: Father, Mother (living, healthy), Sister (one - living - healthy) Admission Physical Exam S - Vital Signs Vital Signs: Vital Signs - 24 hr 01/31/18 12:45 Temperature 98.1 F Pulse Rate 89 Respiratory 16 Rate Blood Pressure 108/64 - Physical General Appearance: Yes: Nourished, Appropriately Dressed, Moderate Distress, Tremorous, Anxious HEENTM: Yes: Hearing grossly Normal, Normocephalic, Normal Voice, Pharynx Normal , Nasal Congestion Respiratory: Yes: Normal Breath Sounds, No Respiratory Distress Neck: Yes: No masses,lesions,Nodules, Supple Breast: Yes: Breast Exam Deferred Cardiology: Yes: Regular Rhythm, Regular Rate Abdominal: Yes: Non Tender, Flat Genitourinary: Yes: Frequency Back: Yes: Normal Inspection Musculoskeletal: Yes: full range of Motion, Gait Steady Extremities: Yes: Normal Inspection, Non-Tender, Tremors Neurological: Yes: Alert, Motor Strength 5/5, Normal Mood/Affect, Normal Response Integumentary: Yes: Normal Color, Warm, Track Maldonado (right arm antecubital space - no abscess noted) Lymphatic: Yes: Within Normal Limits - Diagnostic (1) Alcohol dependence with uncomplicated withdrawal Current Visit: Yes Status: Chronic (2) Sedative, hypnotic or anxiolytic dependence with withdrawal, uncomplicated Current Visit: Yes Status: Chronic (3) Opioid dependence with withdrawal Current Visit: Yes Status: Chronic (4) Nicotine dependence Current Visit: Yes Status: Chronic Qualifiers: Nicotine product type: cigarettes Substance use status: in withdrawal Qualified Code(s): F17.213 - Nicotine dependence, cigarettes, with withdrawal (5) Cocaine dependence Current Visit: No Status: Suspected Qualifiers: Substance use status: uncomplicated Qualified Code(s): F14.20 - Cocaine dependence, uncomplicated Cleared for Admission [facility] - Detox or Rehab [facility] Level of Care: Medically Managed Detox Regimen/Protocol: Methadone, Methadone/Valium [facility] Breath Alcohol Content Breath Alcohol Content: 0 Urine Pregancy Test - Result Urine Test Results: Negative- NO Line Present Urine Drug Screen - Results Drug Screen Negative: No Urine Drug Screen Results: SENTHIL-Cocaine, OPI-Opiates
[2018-01-31] MEDS ORDERED: ACETAMINOPHEN 325 MG TABLET (FP) PO PRN (13:58)
[2018-01-31] MEDS ORDERED: MAGNESIUM HYDROX 2400MG/30ML ORAL SUSPENSION 30 ML CUP PO PRN (13:58)
[2018-01-31] MEDS ORDERED: MENTHOL/PHENOL 1 EACH UD MM PRN (13:58)
[2018-01-31] MEDS ORDERED: guaiFENesin/D-METHORPHAN HB 10 ML UNIT-DOSE CUPS PO PRN (13:58)
[2018-01-31] MEDS ORDERED: MAG HYDROX/AL HYDROX/SIMETH 30 ML UNIT-DOSE CUP PO PRN (13:58)
[2018-01-31] MEDS ORDERED: MAGNESIUM CITRATE 300 ML BOTTLE PO PRN (13:58)
[2018-01-31] MEDS ORDERED: P-EPHED 60MG/TRIPROLIDI 2.5MG TABLET PO PRN (13:58)
[2018-01-31] MEDS ORDERED: ALBUTEROL SO4 18 GM HFA INHALER IH PRN (14:01)
[2018-01-31] MEDS ORDERED: METHADONE HCL 10 MG TABLET (FOR DETOX USE ONLY) PO ONE ×3 (14:45→23:00)
[2018-01-31] MEDS ORDERED: diazePAM 5 MG TABLET PO ONE (14:45)
[2018-01-31] MEDS: NICOTINE 21 MG/24 HOURS TOPICAL PATCH TD SCH (17:48)
[2018-01-31 21:39] LABS: URINE APPEARANCE TURBID; URINE BILIRUBIN NEGATIVE (<2.0 mg/dL); URINE BLOOD NEGATIVE (NEGATIVE); URINE COLOR YELLOW; URINE GLUCOSE (UA) NEGATIVE (NEGATIVE); URINE KETONE NEGATIVE (NEGATIVE); URINE LEUK ESTERASE NEGATIVE (NEGATIVE); URINE NITRITE NEGATIVE (NEGATIVE)
[2018-01-31 21:43] LABS: URINE PROTEIN 1+ (NEGATIVE)
[2018-01-31 21:48] LABS: AMORP URATES MANY /hpf (NONE SEEN)
[2018-01-31] MEDS: diazePAM 5 MG TABLET PO SCH (22:32)
[2018-01-31] MEDS: THIAMINE HCL 100 MG TABLET (FP) PO SCH (22:32)
[2018-01-31] MEDS: MELATONIN 5 MG TABLETS PO SCH (22:32)
[2018-01-31] MEDS: hydrOXYzine PAMOATE 25 MG CAPSULE (FP) PO PRN (22:32)
[2018-02-01] MEDS: diazePAM 5 MG TABLET PO SCH ×3 (05:50→22:48)
--- NOTE | 2018-02-01 07:52 | CONSULT ---
[facility] Psychiatric Consult - Data Date of interview: 02/01/18 Admission source: Self-referred Identifying data: Ms Mckeon is a 27 years old single female, unemployed with no source of income, homeless seeking detox treatment for alcohol, opoid, cocaine and sedative Substance Abuse History: Reports history of alcohol, heroin, cocaine and xanax use. Refer to addiction counselor's note for further information Medical History: Significant for bronchial asthma and history of obgyne procedure(D & C) at age 16. Smokes cigarettes 1ppd Psychiatric History: Patient has had previous admissions to this facility. She reported seeing a psychiatrist at school age to address anxiety, behavioral problems and received psychotherapy for a few years. Patient reports sporadic psychiatric contacts when in drug rehabilitation program to address insomnia, anxiety. She was last in this facility in November 2017 when she saw MARCIE Bone and prescribed Remeron 15 mg po HS, Gabapentin 400 mg po TID. Claims she stopped taking these medications soon following discharge. At present, reports feeling anxious and sleeping poorly. requests to be ordered Ambien for insomnia and resume Gabapentin for anxiety Physical/Sexual Abuse/Trauma History: Denies history of emotional, physical or sexual abuse Additional Comment: Denies criminal history Mental Status Exam - Mental Status Exam Alert and Oriented to: Time, Place, Person Cognitive Function: Fair Patient Appearance: Well Groomed Mood: Anxious Affect: Appropriate Patient Behavior: Cooperative Speech Pattern: Clear Voice Loudness: Normal Thought Process: Intact Thought Disorder: Not Present Hallucinations: Denies Suicidal Ideation: Denies Homicidal Ideation: Denies Insight/Judgement: Poor Sleep: Poorly Appetite: Fair Muscle strength/Tone: Normal Gait/Station: Normal Psychiatric Findings - Problem List (Scheller 1, 2,3) (1) Substance-induced anxiety disorder Current Visit: Yes Status: Acute (2) Substance-induced sleep disorder Current Visit: Yes Status: Acute (3) Alcohol dependence with uncomplicated withdrawal Current Visit: Yes Status: Acute (4) Opioid dependence with withdrawal Current Visit: Yes Status: Acute (5) Cocaine dependence Current Visit: No Status: Acute Qualifiers: Substance use status: uncomplicated Qualified Code(s): F14.20 - Cocaine dependence, uncomplicated (6) Sedative, hypnotic or anxiolytic dependence with withdrawal, uncomplicated Current Visit: Yes Status: Acute (7) Nicotine dependence Current Visit: Yes Status: Chronic Qualifiers: Nicotine product type: cigarettes Substance use status: in withdrawal Qualified Code(s): F17.213 - Nicotine dependence, cigarettes, with withdrawal (8) Asthma Current Visit: Yes Status: Acute - Initial Treatment Plan Initial Treatment Plan: 1) Start Gabapentin 400 mg po TID and Ambien 10 mg po HS prn for insomnia. 2) Continue inpatient detoxification
[2018-02-01] MEDS ORDERED: METHADONE HCL 10 MG TABLET (FOR DETOX USE ONLY) PO SCH (10:00)
[2018-02-01] MEDS: PRENATAL VITAMINS W/ FOLIC ACID TABLET (FP) PO SCH (10:32)
[2018-02-01] MEDS: NICOTINE 21 MG/24 HOURS TOPICAL PATCH TD SCH (10:32)
[2018-02-01] MEDS: diazePAM 5 MG TABLET PO PRN ×2 (10:33→18:15)
--- NOTE | 2018-02-01 10:48 | PN ---
[facility] CIWA - CIWA Score Nausea/Vomitin-Mild Nausea/No Vomiting Muscle Tremors: 4-Moderate,w/Arms Extend Anxiety: 4-Mod. Anxious/Guarded Agitation: 4-Moderately Restless Paroxysmal Sweats: 1-Minimal Palms Moist Orientation: 1-Uncertain about Date Tacttile Disturbances: 0-None Auditory Disturbances: 0-None Visual Disturbances: 0-None Headache: 0-None Present CIWA-Ar Total Score: 15 [facility] COWS - Scale Resting Pulse: 0= IN 80 or Below Sweatin= Chills/Flushing Restless Observation: 1= Difficult to Sit Still Pupil Size: 0= Normal to Room Light Bone or Joint Aches: 1= Mild Discomfort Runny Nose/ Eye Tearin= Nasal Congestion GI Upset > 30mins: 1= Stomach Cramp Tremor Observation of Outstretched Hands: 2= Slight Tremor Visible Yawning Observation: 1= 1-2x During Session Anxiety or Irritability: 1=Feels Anxious/Irritable Goose Flesh Skin: 0=Smooth Skin COWS Score: 9 [facility] Progress Note (SOAP) Subjective: joint aches body aches sweat tremor restlessness sleeplessness anxiety irritable Objective: 02/01/18 10:46 Vital Signs Temperature 97.2 F L 02/01/18 06:00 Pulse Rate 60 02/01/18 06:00 Respiratory Rate 16 02/01/18 06:00 Blood Pressure 95/64 02/01/18 06:00 O2 Sat by Pulse Oximetry (%) Laboratory Last Values Urine Color Yellow 01/31/18 15:40 Urine Appearance Turbid 01/31/18 15:40 Urine pH 5.0 (5.0-8.0) 01/31/18 15:40 Ur Specific [place] 1.032 (1.001-1.035) 01/31/18 15:40 Urine Protein 1+ (NEGATIVE) H 01/31/18 15:40 Urine Glucose (UA) Negative (NEGATIVE) 01/31/18 15:40 Urine Ketones Negative (NEGATIVE) 01/31/18 15:40 Urine Blood Negative (NEGATIVE) 01/31/18 15:40 Urine Nitrite Negative (NEGATIVE) 01/31/18 15:40 Urine Bilirubin Negative (<2.0 mg/dL) 01/31/18 15:40 Urine Urobilinogen 2.0 mg/dL (0.2-1.0) H 01/31/18 15:40 Ur Leukocyte Esterase Negative (NEGATIVE) 01/31/18 15:40 Urine WBC (Auto) None /hpf (3-5) 01/31/18 15:40 Urine RBC (Auto) None /hpf (0-3) 01/31/18 15:40 Amorphous Urates Many /hpf (NONE SEEN) 01/31/18 15:40 lab noted Assessment: 02/01/18 10:47 withdrawal sx Plan: continue detox
[2018-02-01 11:10] LABS: HEMATOCRIT 38.1 % (32.4-45.2); HEMOGLOBIN 12.5 GM/dL (10.7-15.3); MCHC 32.8 g/dl (32.0-36.0); MEAN CELL VOLUME 79.3 fl (80-96); MEAN PLT VOLUME 10.2 fl (7.5-11.1); PLATELET COUNT 228 K/MM3 (134-434); RDW 15.6 % (11.6-15.6); WHITE BLOOD COUNT 5.4 K/mm3 (4.0-10.0)
[2018-02-01 11:22] LABS: CHLORIDE 103 mmol/L (98-107); POTASSIUM 4.2 mmol/L (3.5-5.1); SODIUM 138 mmol/L (136-145)
[2018-02-01 12:17] LABS: ALBUMIN 3.5 g/dl (3.4-5.0); ALK PHOS 60 U/L (45-117); ANION GAP 7 (8-16); BILIRUBIN,TOTAL 0.2 mg/dL (0.2-1.0); BLOOD UREA NITROGEN 15 mg/dL (7-18); CALCIUM 8.8 mg/dL (8.5-10.1); CO2 28 mmol/L (21-32); CREATININE 0.7 mg/dL (0.55-1.02); GLUCOSE,RANDOM 79 mg/dL (74-106); SGOT/AST 16 U/L (15-37); SGPT/ALT 19 U/L (12-78); TOT PROT 6.7 g/dl (6.4-8.2)
[2018-02-01] MEDS: GABAPENTIN 400 MG CAPSULE (FP) PO SCH ×2 (13:50→22:48)
[2018-02-01] MEDS ORDERED: GABAPENTIN 300 MG CAPSULE (FP) PO SCH (14:00)
[2018-02-01] MEDS: hydrOXYzine PAMOATE 25 MG CAPSULE (FP) PO PRN (19:46)
[2018-02-01] MEDS: IBUPROFEN 400 MG TABLET (FP) PO PRN (19:46)
[2018-02-01] MEDS: MELATONIN 5 MG TABLETS PO SCH (22:47)
[2018-02-01] MEDS: THIAMINE HCL 100 MG TABLET (FP) PO SCH (22:47)
[2018-02-01] MEDS: ZOLPIDEM TARTRATE 5 MG TABLET PO PRN (22:47)
[2018-02-02] MEDS: GABAPENTIN 400 MG CAPSULE (FP) PO SCH ×3 (06:10→21:58)
[2018-02-02] MEDS: diazePAM 5 MG TABLET PO PRN ×3 (06:10→17:54)
--- NOTE | 2018-02-02 09:10 | EKG ---
Test Reason : Blood Pressure : / mmHG Vent. Rate : 080 BPM Atrial Rate : 080 BPM P-R Int : 106 ms QRS Dur : 084 ms QT Int : 376 ms P-R-T Axes : 065 071 047 degrees QTc Int : 433 ms SINUS RHYTHM WITH SHORT W[place] OTHERWISE NORMAL ECG WHEN COMPARED WITH ECG OF 05-DEC-2017 18:43, T WAVE INVERSION NO LONGER EVIDENT IN ANTERIOR LEADS Confirmed by FABIO SHANKS MD ([id number]) on 02/02/2018 9:09:41 AM Referred By: Confirmed By:FABIO SHANKS MD
[2018-02-02] MEDS: diazePAM 5 MG TABLET PO SCH ×2 (10:22→21:57)
[2018-02-02] MEDS: METHADONE HCL 5 MG TABLET (FOR DETOX USE ONLY) PO SCH (10:22)
[2018-02-02] MEDS: PRENATAL VITAMINS W/ FOLIC ACID TABLET (FP) PO SCH (10:22)
[2018-02-02] MEDS: NICOTINE 21 MG/24 HOURS TOPICAL PATCH TD SCH (10:23)
--- NOTE | 2018-02-02 13:27 | PN ---
[facility] COWS - Scale Resting Pulse: 1= SC 81-100 Sweatin=Flushed/Facial Moisture Restless Observation: 1= Difficult to Sit Still Pupil Size: 0= Normal to Room Light Bone or Joint Aches: 1= Mild Discomfort Runny Nose/ Eye Tearin= Nasal Congestion GI Upset > 30mins: 1= Stomach Cramp Tremor Observation of Outstretched Hands: 2= Slight Tremor Visible Yawning Observation: 1= 1-2x During Session Anxiety or Irritability: 1=Feels Anxious/Irritable Goose Flesh Skin: 0=Smooth Skin COWS Score: 11 [facility] Progress Note (SOAP) Subjective: sweats abd cramp Objective: 02/02/18 13:27 A & O x 3 Vital Signs Temperature 97.8 F 02/02/18 13:26 Pulse Rate 103 H 02/02/18 13:26 Respiratory Rate 18 02/02/18 13:26 Blood Pressure 109/72 02/02/18 13:26 O2 Sat by Pulse Oximetry (%) Laboratory Last Values WBC 5.4 K/mm3 (4.0-10.0) D 02/01/18 07:45 RBC 4.80 M/mm3 (3.60-5.2) 02/01/18 07:45 Hgb 12.5 GM/dL (10.7-15.3) 02/01/18 07:45 Hct 38.1 % (32.4-45.2) 02/01/18 07:45 MCV 79.3 fl (80-96) L 02/01/18 07:45 MCH 26.0 pg (25.7-33.7) 02/01/18 07:45 MCHC 32.8 g/dl (32.0-36.0) 02/01/18 07:45 RDW 15.6 % (11.6-15.6) D 02/01/18 07:45 Plt Count 228 K/MM3 (134-434) 02/01/18 07:45 MPV 10.2 fl (7.5-11.1) 02/01/18 07:45 Sodium 138 mmol/L (136-145) 02/01/18 07:45 Potassium 4.2 mmol/L (3.5-5.1) 02/01/18 07:45 Chloride 103 mmol/L (98-107) 02/01/18 07:45 Carbon Dioxide 28 mmol/L (21-32) 02/01/18 07:45 Anion Gap 7 (8-16) L 02/01/18 07:45 BUN 15 mg/dL (7-18) 02/01/18 07:45 Creatinine 0.7 mg/dL (0.55-1.02) 02/01/18 07:45 Creat Clearance w eGFR > 60 (>60) 02/01/18 07:45 Random Glucose 79 mg/dL (74-106) 02/01/18 07:45 Calcium 8.8 mg/dL (8.5-10.1) 02/01/18 07:45 Total Bilirubin 0.2 mg/dL (0.2-1.0) D 02/01/18 07:45 AST 16 U/L (15-37) 02/01/18 07:45 ALT 19 U/L (12-78) 02/01/18 07:45 Alkaline Phosphatase 60 U/L (45-117) 02/01/18 07:45 Total Protein 6.7 g/dl (6.4-8.2) 02/01/18 07:45 Albumin 3.5 g/dl (3.4-5.0) 02/01/18 07:45 Urine Color Yellow 01/31/18 15:40 Urine Appearance Turbid 01/31/18 15:40 Urine pH 5.0 (5.0-8.0) 01/31/18 15:40 Ur Specific [place] 1.032 (1.001-1.035) 01/31/18 15:40 Urine Protein 1+ (NEGATIVE) H 01/31/18 15:40 Urine Glucose (UA) Negative (NEGATIVE) 01/31/18 15:40 Urine Ketones Negative (NEGATIVE) 01/31/18 15:40 Urine Blood Negative (NEGATIVE) 01/31/18 15:40 Urine Nitrite Negative (NEGATIVE) 01/31/18 15:40 Urine Bilirubin Negative (<2.0 mg/dL) 01/31/18 15:40 Urine Urobilinogen 2.0 mg/dL (0.2-1.0) H 01/31/18 15:40 Ur Leukocyte Esterase Negative (NEGATIVE) 01/31/18 15:40 Urine WBC (Auto) None /hpf (3-5) 01/31/18 15:40 Urine RBC (Auto) None /hpf (0-3) 01/31/18 15:40 Amorphous Urates Many /hpf (NONE SEEN) 01/31/18 15:40 RPR Titer Nonreactive (NONREACTIVE) 02/01/18 07:45 labs noted Assessment: 02/02/18 13:29 withdrawal sx Plan: continue detox
[2018-02-02] MEDS: ZOLPIDEM TARTRATE 5 MG TABLET PO PRN (21:58)
[2018-02-02] MEDS: THIAMINE HCL 100 MG TABLET (FP) PO SCH (21:59)
[2018-02-02] MEDS: MELATONIN 5 MG TABLETS PO SCH (22:00)
[2018-02-03] MEDS: diazePAM 5 MG TABLET PO PRN (00:35)
[2018-02-03] MEDS: hydrOXYzine PAMOATE 25 MG CAPSULE (FP) PO PRN ×2 (01:32→23:29)
[2018-02-03] MEDS: IBUPROFEN 400 MG TABLET (FP) PO PRN ×2 (01:57→23:30)
[2018-02-03] MEDS: GABAPENTIN 400 MG CAPSULE (FP) PO SCH ×3 (06:01→22:15)
--- NOTE | 2018-02-03 10:03 | PN ---
S Progress Note (SOAP) Subjective: muscle cramp joint ache sweat tremor stuffy nose mild gi distress Objective: 02/03/18 10:02 Vital Signs Temperature 97.9 F 02/03/18 09:54 Pulse Rate 92 H 02/03/18 09:54 Respiratory Rate 18 02/03/18 09:54 Blood Pressure 111/56 02/03/18 09:54 O2 Sat by Pulse Oximetry (%) Laboratory Last Values WBC 5.4 K/mm3 (4.0-10.0) D 02/01/18 07:45 RBC 4.80 M/mm3 (3.60-5.2) 02/01/18 07:45 Hgb 12.5 GM/dL (10.7-15.3) 02/01/18 07:45 Hct 38.1 % (32.4-45.2) 02/01/18 07:45 MCV 79.3 fl (80-96) L 02/01/18 07:45 MCH 26.0 pg (25.7-33.7) 02/01/18 07:45 MCHC 32.8 g/dl (32.0-36.0) 02/01/18 07:45 RDW 15.6 % (11.6-15.6) D 02/01/18 07:45 Plt Count 228 K/MM3 (134-434) 02/01/18 07:45 MPV 10.2 fl (7.5-11.1) 02/01/18 07:45 Sodium 138 mmol/L (136-145) 02/01/18 07:45 Potassium 4.2 mmol/L (3.5-5.1) 02/01/18 07:45 Chloride 103 mmol/L (98-107) 02/01/18 07:45 Carbon Dioxide 28 mmol/L (21-32) 02/01/18 07:45 Anion Gap 7 (8-16) L 02/01/18 07:45 BUN 15 mg/dL (7-18) 02/01/18 07:45 Creatinine 0.7 mg/dL (0.55-1.02) 02/01/18 07:45 Creat Clearance w eGFR > 60 (>60) 02/01/18 07:45 Random Glucose 79 mg/dL (74-106) 02/01/18 07:45 Calcium 8.8 mg/dL (8.5-10.1) 02/01/18 07:45 Total Bilirubin 0.2 mg/dL (0.2-1.0) D 02/01/18 07:45 AST 16 U/L (15-37) 02/01/18 07:45 ALT 19 U/L (12-78) 02/01/18 07:45 Alkaline Phosphatase 60 U/L (45-117) 02/01/18 07:45 Total Protein 6.7 g/dl (6.4-8.2) 02/01/18 07:45 Albumin 3.5 g/dl (3.4-5.0) 02/01/18 07:45 Urine Color Yellow 01/31/18 15:40 Urine Appearance Turbid 01/31/18 15:40 Urine pH 5.0 (5.0-8.0) 01/31/18 15:40 Ur Specific [place] 1.032 (1.001-1.035) 01/31/18 15:40 Urine Protein 1+ (NEGATIVE) H 01/31/18 15:40 Urine Glucose (UA) Negative (NEGATIVE) 01/31/18 15:40 Urine Ketones Negative (NEGATIVE) 01/31/18 15:40 Urine Blood Negative (NEGATIVE) 01/31/18 15:40 Urine Nitrite Negative (NEGATIVE) 01/31/18 15:40 Urine Bilirubin Negative (<2.0 mg/dL) 01/31/18 15:40 Urine Urobilinogen 2.0 mg/dL (0.2-1.0) H 01/31/18 15:40 Ur Leukocyte Esterase Negative (NEGATIVE) 01/31/18 15:40 Urine WBC (Auto) None /hpf (3-5) 01/31/18 15:40 Urine RBC (Auto) None /hpf (0-3) 01/31/18 15:40 Amorphous Urates Many /hpf (NONE SEEN) 01/31/18 15:40 RPR Titer Nonreactive (NONREACTIVE) 02/01/18 07:45 lab noted Assessment: 02/03/18 10:02 withdrawal sx muscle camp Plan: continue detox robaxin prn
[2018-02-03] MEDS: PRENATAL VITAMINS W/ FOLIC ACID TABLET (FP) PO SCH (10:35)
[2018-02-03] MEDS: METHADONE HCL 5 MG TABLET (FOR DETOX USE ONLY) PO SCH (10:35)
[2018-02-03] MEDS: METHOCARBAMOL 500 MG TABLET PO PRN ×2 (10:35→22:15)
[2018-02-03] MEDS: diazePAM 5 MG TABLET PO SCH ×2 (10:35→22:15)
[2018-02-03] MEDS: NICOTINE 21 MG/24 HOURS TOPICAL PATCH TD SCH (10:36)
[2018-02-03] MEDS ORDERED: NICOTINE POLACRILEX 4 MG GUM BUC PRN (18:20)
[2018-02-03] MEDS: ZOLPIDEM TARTRATE 5 MG TABLET PO PRN (22:15)
[2018-02-03] MEDS: THIAMINE HCL 100 MG TABLET (FP) PO SCH (22:15)
[2018-02-03] MEDS: MELATONIN 5 MG TABLETS PO SCH (22:16)
--- NOTE | 2018-02-04 05:58 | PN ---
[facility] Progress Note Note: Patient was seen and examined in bed, status post a fall at 5.27AM. Patient reports, "I was at the medication standing to take my medication. I felt lightheaded and slided to a sitting position on my buttock." Patient denies pain , loss of consciousness and discomfort at this time. No physical injury, bruises or swelling noted or reported. Vital signs B/P 109/62, HR 82, RR 18, T 96.3F. Patient is alert and oriented to person, place and time. Fall was witnessed by Mr. Warren Flowers RN who was dispensing medication at the medication counter. Fall protocol #2 initiated. Will monitor patient.
[2018-02-04] MEDS: GABAPENTIN 400 MG CAPSULE (FP) PO SCH ×3 (06:13→22:28)
[2018-02-04] MEDS ORDERED: diazePAM 5 MG TABLET PO SCH (10:00)
[2018-02-04] MEDS ORDERED: METHADONE HCL 10 MG TABLET (FOR DETOX USE ONLY) PO SCH (10:00)
[2018-02-04] MEDS: PRENATAL VITAMINS W/ FOLIC ACID TABLET (FP) PO SCH (10:43)
[2018-02-04] MEDS: NICOTINE 21 MG/24 HOURS TOPICAL PATCH TD SCH (10:44)
--- NOTE | 2018-02-04 12:06 | PN ---
[facility] Progress Note (SOAP) Subjective: nausea, sweats, interrupted sleep, anxiety, tremors Objective: 02/04/18 12:06 Vital Signs - 24 hr 02/03/18 02/03/18 02/04/18 17:27 22:38 00:30 Temperature 98.4 F 98.2 F Pulse Rate 84 98 H Respiratory 18 19 18 Rate Blood Pressure 96/57 114/72 02/04/18 02/04/18 02/04/18 03:30 06:49 09:37 Temperature 96.3 F L 97.7 F Pulse Rate 82 102 H Respiratory 18 18 20 Rate Blood Pressure 109/62 100/55 02/04/18 10:00 Temperature 97.7 F Pulse Rate 102 H Respiratory 20 Rate Blood Pressure 100/55 tachycardia ntoed Laboratory Tests 01/31/18 02/01/18 02/01/18 15:40 07:45 07:45 WBC 5.4 D RBC 4.80 Hgb 12.5 Hct 38.1 MCV 79.3 L MCH 26.0 MCHC 32.8 RDW 15.6 D Plt Count 228 MPV 10.2 Sodium 138 Potassium 4.2 Chloride 103 Carbon Dioxide 28 Anion Gap 7 L BUN 15 Creatinine 0.7 Creat Clearance w eGFR > 60 Random Glucose 79 Calcium 8.8 Total Bilirubin 0.2 D AST 16 ALT 19 Alkaline Phosphatase 60 Total Protein 6.7 Albumin 3.5 Urine Color Yellow Urine Appearance Turbid Urine pH 5.0 Ur Specific [place] 1.032 Urine Protein 1+ H Urine Glucose (UA) Negative Urine Ketones Negative Urine Blood Negative Urine Nitrite Negative Urine Bilirubin Negative Urine Urobilinogen 2.0 H Ur Leukocyte Esterase Negative Urine WBC (Auto) None Urine RBC (Auto) None Amorphous Urates Many RPR Titer 02/01/18 07:45 WBC RBC Hgb Hct MCV MCH MCHC RDW Plt Count MPV Sodium Potassium Chloride Carbon Dioxide Anion Gap BUN Creatinine Creat Clearance w eGFR Random Glucose Calcium Total Bilirubin AST ALT Alkaline Phosphatase Total Protein Albumin Urine Color Urine Appearance Urine pH Ur Specific [place] Urine Protein Urine Glucose (UA) Urine Ketones Urine Blood Urine Nitrite Urine Bilirubin Urine Urobilinogen Ur Leukocyte Esterase Urine WBC (Auto) Urine RBC (Auto) Amorphous Urates RPR Titer Nonreactive Assessment: 02/04/18 12:06 withdrawal sx, fluids, encourage ambualtion
[2018-02-04] MEDS: METHOCARBAMOL 500 MG TABLET PO PRN ×2 (13:14→22:28)
[2018-02-04] MEDS: THIAMINE HCL 100 MG TABLET (FP) PO SCH (22:28)
[2018-02-04] MEDS: ZOLPIDEM TARTRATE 5 MG TABLET PO PRN (22:28)
[2018-02-04] MEDS: LOPERAMIDE HCL 2 MG CAPSULE PO PRN (22:31)
[2018-02-05 01:42] VITALS: TEMP 97.7
[2018-02-05] MEDS ORDERED: METHADONE HCL 5 MG TABLET (FOR DETOX USE ONLY) PO SCH (06:00)
[2018-02-05 06:29] VITALS: BP 106/69; PULSE 90
[2018-02-05] MEDS: GABAPENTIN 400 MG CAPSULE (FP) PO SCH (07:25)
[2018-02-05] MEDS: LOPERAMIDE HCL 2 MG CAPSULE PO PRN (07:27)
--- NOTE | 2018-02-05 09:28 | PN ---
S Progress Note (SOAP) Subjective: ALERT,NO COMPLAINT Objective: 02/05/18 09:26 Vital Signs Temperature 97.7 F 02/05/18 05:37 Pulse Rate 90 02/05/18 05:37 Respiratory Rate 16 02/05/18 05:37 Blood Pressure 106/69 02/05/18 05:37 O2 Sat by Pulse Oximetry (%) Assessment: 02/05/18 09:27 DETOX COMPLETED,NO WITHDRAWAL SYMPTOM Plan: DISCHARGE TODAY,FOLLOW UP WITH AFTER CARE PROGRAM ARRANGEMENT
--- NOTE | 2018-02-05 09:29 | DS ---
[facility] Detox Discharge Summary Admission Date: 01/31/18 Discharge Date: 02/05/18 - History Present History: Alcohol Dependence, Cocaine Dependence, Opioid Dependence, Sedative Dependence Additional Comments: FOLLOW UP WITH AFTER CARE PROGRAM ARRANGEMENT Pertinent Past History: NICOTINE DEPENDENCE - Physical Exam Results Vital Signs: Vital Signs Temperature 97.7 F 02/05/18 05:37 Pulse Rate 90 02/05/18 05:37 Respiratory Rate 16 02/05/18 05:37 Blood Pressure 106/69 02/05/18 05:37 O2 Sat by Pulse Oximetry (%) Pertinent Admission Physical Exam Findings: WITHDRAWAL SIGNS AND SYMPTOM Vital Signs Temperature 97.7 F 02/05/18 05:37 Pulse Rate 90 02/05/18 05:37 Respiratory Rate 16 02/05/18 05:37 Blood Pressure 106/69 02/05/18 05:37 O2 Sat by Pulse Oximetry (%) Laboratory Last Values WBC 5.4 K/mm3 (4.0-10.0) D 02/01/18 07:45 RBC 4.80 M/mm3 (3.60-5.2) 02/01/18 07:45 Hgb 12.5 GM/dL (10.7-15.3) 02/01/18 07:45 Hct 38.1 % (32.4-45.2) 02/01/18 07:45 MCV 79.3 fl (80-96) L 02/01/18 07:45 MCH 26.0 pg (25.7-33.7) 02/01/18 07:45 MCHC 32.8 g/dl (32.0-36.0) 02/01/18 07:45 RDW 15.6 % (11.6-15.6) D 02/01/18 07:45 Plt Count 228 K/MM3 (134-434) 02/01/18 07:45 MPV 10.2 fl (7.5-11.1) 02/01/18 07:45 Sodium 138 mmol/L (136-145) 02/01/18 07:45 Potassium 4.2 mmol/L (3.5-5.1) 02/01/18 07:45 Chloride 103 mmol/L (98-107) 02/01/18 07:45 Carbon Dioxide 28 mmol/L (21-32) 02/01/18 07:45 Anion Gap 7 (8-16) L 02/01/18 07:45 BUN 15 mg/dL (7-18) 02/01/18 07:45 Creatinine 0.7 mg/dL (0.55-1.02) 02/01/18 07:45 Creat Clearance w eGFR > 60 (>60) 02/01/18 07:45 Random Glucose 79 mg/dL (74-106) 02/01/18 07:45 Calcium 8.8 mg/dL (8.5-10.1) 02/01/18 07:45 Total Bilirubin 0.2 mg/dL (0.2-1.0) D 02/01/18 07:45 AST 16 U/L (15-37) 02/01/18 07:45 ALT 19 U/L (12-78) 02/01/18 07:45 Alkaline Phosphatase 60 U/L (45-117) 02/01/18 07:45 Total Protein 6.7 g/dl (6.4-8.2) 02/01/18 07:45 Albumin 3.5 g/dl (3.4-5.0) 02/01/18 07:45 Urine Color Yellow 01/31/18 15:40 Urine Appearance Turbid 01/31/18 15:40 Urine pH 5.0 (5.0-8.0) 01/31/18 15:40 Ur Specific [place] 1.032 (1.001-1.035) 01/31/18 15:40 Urine Protein 1+ (NEGATIVE) H 01/31/18 15:40 Urine Glucose (UA) Negative (NEGATIVE) 01/31/18 15:40 Urine Ketones Negative (NEGATIVE) 01/31/18 15:40 Urine Blood Negative (NEGATIVE) 01/31/18 15:40 Urine Nitrite Negative (NEGATIVE) 01/31/18 15:40 Urine Bilirubin Negative (<2.0 mg/dL) 01/31/18 15:40 Urine Urobilinogen 2.0 mg/dL (0.2-1.0) H 01/31/18 15:40 Ur Leukocyte Esterase Negative (NEGATIVE) 01/31/18 15:40 Urine WBC (Auto) None /hpf (3-5) 01/31/18 15:40 Urine RBC (Auto) None /hpf (0-3) 01/31/18 15:40 Amorphous Urates Many /hpf (NONE SEEN) 01/31/18 15:40 RPR Titer Nonreactive (NONREACTIVE) 02/01/18 07:45 - Treatment Hospital Course: Detox Protocol Followed, Detoxed Safely, Responded well, Discharged Condition Good, Rehab Referral Accepted Patient has Accepted a Rehab Referral to: [facility] - Medication Discharge Medications: Ambulatory Orders Albuterol Sulfate Inhaler - [Ventolin HFA Inhaler -] 2 inh PO Q4H PRN 06/09/15 Gabapentin [Neurontin -] 600 mg PO TID #120 cap 08/13/17 Mirtazapine [Remeron -] 30 mg PO HS #30 tablet 08/13/17 Quetiapine Fumarate [Seroquel -] 300 mg PO HS #30 tablet 08/13/17 Topiramate [Topamax -] 100 mg PO BID #60 tablet 08/13/17 Suvorexant [Belsomra] 10 mg PO HS 12/05/17 - Diagnosis (1) Alcohol dependence with uncomplicated withdrawal Current Visit: Yes Status: Acute (2) Asthma Current Visit: Yes Status: Acute (3) Opioid dependence with withdrawal Current Visit: Yes Status: Acute (4) Sedative, hypnotic or anxiolytic dependence with withdrawal, uncomplicated Current Visit: Yes Status: Acute (5) Substance-induced anxiety disorder Current Visit: Yes Status: Acute (6) Substance-induced sleep disorder Current Visit: Yes Status: Acute (7) Nicotine dependence Current Visit: Yes Status: Chronic Qualifiers: Nicotine product type: cigarettes Substance use status: in withdrawal Qualified Code(s): F17.213 - Nicotine dependence, cigarettes, with withdrawal (8) Cocaine dependence Current Visit: No Status: Acute Qualifiers: Substance use status: uncomplicated Qualified Code(s): F14.20 - Cocaine dependence, uncomplicated (9) MARITO (generalized anxiety disorder) Current Visit: No Status: Chronic (10) OCD (obsessive compulsive disorder) Current Visit: No Status: Chronic - AMA Did Patient Leave Against Medical Advice: No
== END 2018-02-05 09:00 | disposition home or self-care (01) | DRG 773 ==
LOC: YASAS 12:21 → Y6N 14:27 → UNDODISIN 02-02 20:41
PROVIDERS: ADMIT Internal Medicine; ATTEND Internal Medicine
PROC: HZ2ZZZZ Detoxification Services for Substance Abuse Treatment (ICD-10-PCS; principal; 2018-01-31)
DX: F11.23 Opioid dependence with withdrawal (principal); F13.230 Sedative, hypnotic or anxiolytic dependence with withdrawal, uncomplicated; F10.230 Alcohol dependence with withdrawal, uncomplicated; F14.20 Cocaine dependence, uncomplicated; F17.210 Nicotine dependence, cigarettes, uncomplicated; F19.280 Other psychoactive substance dependence with psychoactive substance-induced anxiety disorder; F19.282 Other psychoactive substance dependence with psychoactive substance-induced sleep disorder; F41.1 Generalized anxiety disorder; J45.901 Unspecified asthma with (acute) exacerbation; Z59.0 Homelessness
CPT/HCPCS: 36415; 80053; 81003; 81015; 85027; 86593; 93005; 93010

== ENCOUNTER 2018-02-27 10:00 | Inpatient (IN) | payer OTHER ==
[2018-02-27 10:10] VITALS: BMI 22.0
--- NOTE | 2018-02-27 13:33 | HP ---
COWS - Scale Resting Pulse: 0= MD 80 or Below Sweatin= Chills/Flushing Restless Observation: 3= Extraneous Movement Pupil Size: 2= Moderately Dilated Bone or Joint Aches: 4=Acute Joint/Muscle Pain Runny Nose/ Eye Tearin= None GI Upset > 30mins: 1= Stomach Cramp Tremor Observation: 2= Slight Tremor Visible Yawning Observation: 1= 1-2x During Session Anxiety or Irritability: 2=Irritable/Anxious Goose Flesh Skin: 0=Smooth Skin COWS Score: 16 CIWA Score - CIWA Score Nausea/Vomitin-No Nausea/No Vomiting Muscle Tremors: 4-Moderate,w/Arms Extend Anxiety: 4-Mod. Anxious/Guarded Agitation: 4-Moderately Restless Paroxysmal Sweats: No Perspiration Orientation: 0-Oriented Tacttile Disturbances: 0-None Auditory Disturbances: 0-None Visual Disturbances: 0-None Headache: 0-None Present CIWA-Ar Total Score: 12 Admission ROS S - HPI Chief Complaint: HEROIN,XANAX AND ALCOHOL WITHDRAWAL SX Allergies/Adverse Reactions: Allergies Allergy/AdvReac Type Severity Reaction Status Date / Time blueberry Allergy Severe Swelling Verified 02/27/18 11:13 nut - unspecified Allergy Severe Swelling Verified 02/27/18 11:13 No Known Drug Allergies Allergy Verified 02/27/18 11:13 nuts Allergy Severe Swelling Uncoded 02/27/18 11:13 History of Present Illness: 28 Y/O FEMALE WITH A HX OF HEROIN,XANAX AND ALCOHOL DEPENDENCE SEEKING DETOX [place] Exam Limitations: No Limitations - Ebola screening Have you traveled outside of the country in the last 21 days: No Have you had contact with anyone from an Ebola affected area: No Have you been sick,other than usual withdrawal symptoms: No Do you have a fever: No - Review of Systems Constitutional: Chills, Night Sweats, Changes in sleep EENT: reports: Tearing, Nose Congestion Respiratory: reports: Shortness of Breath (HX ASTHMA), Wheezing Cardiac: reports: No Symptoms Reported GI: reports: Constipated, Diarrhea, Nausea, Poor Fluid Intake, Vomiting, Abdominal cramping : reports: No Symptoms Reported Musculoskeletal: reports: Back Pain, Joint Pain, Muscle Pain Integumentary: reports: Bruising (IVD INJ TRACK MARTINEZ ON BOTH ELBOWS.) Neuro: reports: Headache, Tremors, Unsteady Gait (DENIES FALLS) Endocrine: reports: No Symptoms Reported Hematology: reports: No Symptoms Reported Psychiatric: reports: Orientated x3, Anxious Other Systems: Reviewed and Negative Patient History - Patient Medical History Hx Anemia: No Hx Asthma: Yes (MDI) Hx Chronic Obstructive Pulmonary Disease (COPD): No Hx Cardiac Disorders: No Hx Hypertension: No Hx Hypercholesterolemia: No HX Cerebrovascular Accident: No Hx Seizures: No Hx Diabetes: No Hx Gastrointestinal Disorders: No Hx Genitourinary Disorders: No Hx Sexually Transmitted Disorders: No Hx Renal Disease (ESRD): No Hx Thyroid Disease: No Hx Human Immunodeficiency Virus (HIV): No (NEGATIVE HX) Hx Hepatitis C: No Hx Depression: Yes (ANXIETY BUT DENIES DEPRESSION TODAY) Hx Suicide Attempt: No (DENIES S/I) Hx Bipolar Disorder: No Hx Schizophrenia: No - Patient Surgical History Past Surgical History: Yes Hx Neurologic Surgery: No Hx Cataract Extraction: No Hx Cardiac Surgery: No Hx Lung Surgery: No Hx Breast Surgery: No Hx Breast Biopsy: No Hx Abdominal Surgery: No Hx Appendectomy: No Hx Cholecystectomy: No Hx Genitourinary Surgery: No Hx Section: No Hx Orthopedic Surgery: No Other Surgical History: D & C AT 16 Y/O. Anesthesia Reaction: No - PPD History Previous Implant?: Yes Documented Results: Negative w/proof Implanted On Prior [facility] Admission?: Yes Date: 12/07/17 Results: 0 MM PPD to be Administered?: No - Reproductive History Patient is a Female of Child Bearing Age (11 -55 yrs old): Yes Last Menstrual Period: 09/26/17 Patient : No - Smoking Cessation Smoking history: Current every day smoker Have you smoked in the past 12 months: Yes Aproximately how many cigarettes per day: 20 Hx Chewing Tobacco Use: No Initiated information on smoking cessation: Yes 'Breaking Loose' booklet given: 02/27/18 - Substance & Tx. History Hx Alcohol Use: Yes (VODKA/COGNAC) Hx Substance Use: Yes (XANAX/HEROIN) Substance Use Type: Alcohol, Tranquilizers Hx Substance Use Treatment: Yes (LAST TX AT [facility]) - Substances Abused Heroin Route: Injection Frequency: Daily Amount used: 15 BAGS Age of first use: 21 Date of Last Use: 02/27/18 Alprazolam (Xanax) Route: Oral Frequency: Daily Amount used: 4MG Age of first use: 24 Date of Last Use: 02/26/18 Alcohol Route: Oral Frequency: Daily Amount used: 1 PINT VODKA Age of first use: 16 Date of Last Use: 02/26/18 Family Disease History - Family Disease History Family Disease History: Diabetes: Father (PARKINSONS DISEASE;[place]-), [place]: Grandparent (BREAST/BRAIN-ALIVE), Other: Father, Mother (living, healthy), Sister (one - living - healthy) Admission Physical Exam S - Vital Signs Vital Signs: Vital Signs - 24 hr 02/27/18 10:08 Temperature 96.7 F L Pulse Rate 80 Respiratory 16 Rate Blood Pressure 128/74 - Physical General Appearance: Yes: Moderate Distress, Irritable, Anxious HEENTM: Yes: EOMI, Normocephalic, ROBERT, Pharynx Normal Respiratory: Yes: Chest Non-Tender, Lungs Clear, Normal Breath Sounds, No Respiratory Distress Neck: Yes: No masses,lesions,Nodules, Supple, Trachea in good position Cardiology: Yes: Regular Rhythm, Regular Rate, S1, S2 Abdominal: Yes: Normal Bowel Sounds, Non Tender, Flat, Soft Genitourinary: Yes: Other (N/C) Back: Yes: Within Normal Limits Musculoskeletal: Yes: full range of Motion, Gait Steady Extremities: Yes: Normal Range of Motion, Non-Tender Neurological: Yes: director industrial museum II-XII NML intact, Fully Oriented, Alert, Motor Strength 5/5 Integumentary: Yes: Dry, Warm, Track Martinez (BOTH ELBOWS) Lymphatic: Yes: Within Normal Limits - Diagnostic (1) Alcohol dependence with uncomplicated withdrawal Current Visit: Yes Status: Acute (2) Asthma Current Visit: Yes Status: Chronic Qualifiers: Asthma severity: mild Asthma persistence: intermittent Asthma complication type: uncomplicated Qualified Code(s): J45.20 - Mild intermittent asthma, uncomplicated (3) Opioid dependence with withdrawal Current Visit: Yes Status: Acute (4) Sedative, hypnotic or anxiolytic dependence with withdrawal, uncomplicated Current Visit: Yes Status: Acute (5) Nicotine dependence Current Visit: Yes Status: Chronic Qualifiers: Nicotine product type: cigarettes Substance use status: in withdrawal Qualified Code(s): F17.213 - Nicotine dependence, cigarettes, with withdrawal (6) History of anxiety disorder Current Visit: Yes Status: Chronic (7) IVDU (intravenous drug user) Current Visit: Yes Status: Acute Comment: SCAR TISSUE ON TRACK MARTINEZ ON BOTH INNER ELBOWS. Cleared for Admission [facility] - Detox or Rehab [facility] Level of Care: Medically Managed Detox Regimen/Protocol: Methadone/Valium [facility] Breath Alcohol Content Breath Alcohol Content: 0 Urine Pregancy Test - Result Urine Test Results: Negative- NO Line Present Urine Drug Screen - Results Drug Screen Negative: No Urine Drug Screen Results: THC-Marijuana, OPI-Opiates, BZO-Benzodiazepines
[2018-02-27] MEDS ORDERED: MAGNESIUM HYDROX 2400MG/30ML ORAL SUSPENSION 30 ML CUP PO PRN (13:47)
[2018-02-27] MEDS ORDERED: MAGNESIUM CITRATE 300 ML BOTTLE PO PRN (13:47)
[2018-02-27] MEDS ORDERED: MAG HYDROX/AL HYDROX/SIMETH 30 ML UNIT-DOSE CUP PO PRN (13:47)
[2018-02-27] MEDS ORDERED: guaiFENesin/D-METHORPHAN HB 10 ML UNIT-DOSE CUPS PO PRN (13:47)
[2018-02-27] MEDS ORDERED: MENTHOL/PHENOL 1 EACH UD MM PRN (13:47)
[2018-02-27] MEDS ORDERED: ACETAMINOPHEN 325 MG TABLET (FP) PO PRN (13:47)
[2018-02-27] MEDS ORDERED: P-EPHED 60MG/TRIPROLIDI 2.5MG TABLET PO PRN (13:47)
[2018-02-27] MEDS ORDERED: NICOTINE POLACRILEX 4 MG GUM BUC PRN (13:47)
[2018-02-27] MEDS ORDERED: LOPERAMIDE HCL 2 MG CAPSULE PO PRN (13:47)
[2018-02-27] MEDS ORDERED: diazePAM 5 MG TABLET PO ONE (14:10)
[2018-02-27] MEDS ORDERED: METHADONE HCL 10 MG TABLET (FOR DETOX USE ONLY) PO ONE ×2 (14:10→23:00)
[2018-02-27] MEDS ORDERED: ALBUTEROL SO4 18 GM HFA INHALER IH PRN (15:16)
[2018-02-27] MEDS: NICOTINE 21 MG/24 HOURS TOPICAL PATCH TD SCH (15:25)
--- NOTE | 2018-02-27 17:16 | CONSULT ---
[facility] Psychiatric Consult - Data Date of interview: 02/27/18 Admission source: [facility] Identifying data: Pt. is a 28 year old single female, without kids, unemployed, not receiving any financial assistance, and is currently homeless. This is one of multiple admissions for patient. Pt. admitted to for alcohol, marijuana, opiates, and benzodiazepine dependence. Substance Abuse History: Following information confirmed with Ms. Mckeon: Smoking Cessation. Smoking history: Current every day smoker. Have you smoked in the past 12 months: Yes. Aproximately how many cigarettes per day: 20. Hx Chewing Tobacco Use: No. Initiated information on smoking cessation: Yes. ' Breaking Loose' booklet given: 02/27/18. - Substance & Tx. History. Hx Alcohol Use: Yes (VODKA/COGNAC). Hx Substance Use: Yes (XANAX/HEROIN). Substance Use Type: Alcohol, Tranquilizers. Hx Substance Use Treatment: Yes ( LAST TX AT [facility]). - Substances Abused. Heroin. Route: Injection. Frequency: Daily. Amount used: 15 BAGS. Age of first use: 21. Date of Last Use: 02/27/18. Alprazolam (Xanax). Route: Oral. Frequency: Daily. Amount used: 4MG. Age of first use: 24. Date of Last Use: 02/26/18. Alcohol. Route: Oral. Frequency: Daily. Amount used: 1 PINT VODKA. Age of first use: 16. Date of Last Use: 02/26/18 Medical History: Asthma Psychiatric History: This is patient's third admission to [facility] in 2018. Most recently admitted to detox in January of [address] Saeed. Pt. previously seen by adjusto writer operator in November of 2017. Pt. denies h/o psychiatric hospitalizations. Pt. is nonadherent to medications and outpatient treatment. Reports being prescribed xanac 2mg QID + Ambien (unsure of dosage). Pt is not reliable. Pt. informed of previous prescribed medications of mirtzapine+ gabapentin + seroquel but is not interested in resuming those medications. Pt. only requesting ambien for insomnia. Pt. denies h/o suicide attempts. Pt. currently denies suicidal and homicidal ideation. Physical/Sexual Abuse/Trauma History: Denies. Mental Status Exam - Mental Status Exam Alert and Oriented to: Time, Place, Person Cognitive Function: Good Patient Appearance: Unkempt Mood: Euthymic Affect: Appropriate Patient Behavior: Cooperative Speech Pattern: Appropriate Voice Loudness: Normal Thought Process: Goal Oriented Thought Disorder: Not Present Hallucinations: Denies Suicidal Ideation: Denies Homicidal Ideation: Denies Insight/Judgement: Poor Sleep: Fair Appetite: Fair Muscle strength/Tone: Normal Gait/Station: Normal Psychiatric Findings - Problem List ([place] 1, 2,3) (1) Opioid dependence with withdrawal Current Visit: Yes Status: Acute (2) Sedative, hypnotic or anxiolytic dependence with withdrawal, uncomplicated Current Visit: Yes Status: Acute (3) Substance-induced sleep disorder Current Visit: Yes Status: Acute (4) Substance induced mood disorder Current Visit: Yes Status: Acute (5) Alcohol dependence with uncomplicated withdrawal Current Visit: Yes Status: Acute - Initial Treatment Plan Initial Treatment Plan: Psychoeducation provided. Detoxification in progress. Ambien 10mg qhs prn ordered for insomnia. Benefits and side effects discussed. Pt. made aware of the risk of parasomnia. Verbal consent given. Will continue to monitor.
[2018-02-27 18:26] LABS: HEMATOCRIT 34.9 % (32.4-45.2); HEMOGLOBIN 11.8 GM/dL (10.7-15.3); MCH 27.3 pg (25.7-33.7); MCHC 33.9 g/dl (32.0-36.0); MEAN CELL VOLUME 80.5 fl (80-96); MEAN PLT VOLUME 9.5 fl (7.5-11.1); PLATELET COUNT 295 K/MM3 (134-434); RBC 4.34 M/mm3 (3.60-5.2); RDW 16.2 % (11.6-15.6)
[2018-02-27 18:35] LABS: ANION GAP 6 (8-16); BLOOD UREA NITROGEN 16 mg/dL (7-18); CALCIUM 8.8 mg/dL (8.5-10.1); CHLORIDE 103 mmol/L (98-107); CO2 29 mmol/L (21-32); CREATININE 0.7 mg/dL (0.55-1.02); GLUCOSE,RANDOM 96 mg/dL (74-106); POTASSIUM 4.4 mmol/L (3.5-5.1); SGOT/AST 16 U/L (15-37); SGPT/ALT 23 U/L (12-78); SODIUM 138 mmol/L (136-145)
[2018-02-27 18:37] LABS: ALK PHOS 62 U/L (45-117); BILIRUBIN,TOTAL 0.2 mg/dL (0.2-1.0); TOT PROT 7.3 g/dl (6.4-8.2)
[2018-02-27 18:38] LABS: URINE APPEARANCE TURBID; URINE BILIRUBIN NEGATIVE (<2.0 mg/dL); URINE BLOOD NEGATIVE (NEGATIVE); URINE COLOR YELLOW; URINE GLUCOSE (UA) NEGATIVE (NEGATIVE); URINE KETONE NEGATIVE (NEGATIVE); URINE LEUK ESTERASE NEGATIVE (NEGATIVE); URINE NITRITE NEGATIVE (NEGATIVE); URINE PROTEIN NEGATIVE (NEGATIVE); URINE UROBILINOGEN NEGATIVE mg/dL (0.2-1.0)
[2018-02-27] MEDS: diazePAM 5 MG TABLET PO PRN (20:56)
[2018-02-27] MEDS ORDERED: MELATONIN 5 MG TABLETS PO PRN (22:00)
[2018-02-27] MEDS: diazePAM 5 MG TABLET PO SCH (22:34)
[2018-02-27] MEDS: THIAMINE HCL 100 MG TABLET (FP) PO SCH (22:34)
[2018-02-27] MEDS: ZOLPIDEM TARTRATE 10 MG TABLET (PARK CARE ONLY) PO PRN (22:34)
[2018-02-27] MEDS: BACITRACIN 0.9 GM PACKET TP SCH (22:35)
[2018-02-28] MEDS: diazePAM 5 MG TABLET PO SCH ×3 (05:38→22:50)
[2018-02-28] MEDS: diazePAM 5 MG TABLET PO PRN ×2 (08:49→18:14)
--- NOTE | 2018-02-28 09:52 | EKG ---
Test Reason : Blood Pressure : / mmHG Vent. Rate : 075 BPM Atrial Rate : 075 BPM P-R Int : 104 ms QRS Dur : 090 ms QT Int : 392 ms P-R-T Axes : 061 068 039 degrees QTc Int : 437 ms SINUS RHYTHM WITH SHORT TN OTHERWISE NORMAL ECG WHEN COMPARED WITH ECG OF 31-JAN-2018 16:54, NO SIGNIFICANT CHANGE WAS FOUND Confirmed by GIGI REILLY MD ([id number]) on 02/28/2018 9:52:11 AM Referred By: Confirmed By:GIGI REILLY MD
[2018-02-28] MEDS ORDERED: METHADONE HCL 10 MG TABLET (FOR DETOX USE ONLY) PO SCH (10:00)
[2018-02-28] MEDS: NICOTINE 21 MG/24 HOURS TOPICAL PATCH TD SCH (11:02)
[2018-02-28] MEDS: BACITRACIN 0.9 GM PACKET TP SCH ×2 (11:02→22:50)
[2018-02-28] MEDS: PRENATAL VITAMINS W/ FOLIC ACID TABLET (FP) PO SCH (11:02)
[2018-02-28] MEDS: IBUPROFEN 400 MG TABLET (FP) PO PRN (13:30)
--- NOTE | 2018-02-28 20:53 | PN ---
S CIWA - CIWA Score Nausea/Vomitin Muscle Tremors: 3 Anxiety: 3 Agitation: 2 Paroxysmal Sweats: 3 Orientation: 0-Oriented Tacttile Disturbances: 0-None Auditory Disturbances: 0-None Visual Disturbances: 0-None Headache: 0-None Present CIWA-Ar Total Score: 13 S COWS - Scale Resting Pulse: 1= [place] 81-100 Sweatin=Flushed/Facial Moisture Restless Observation: 1= Difficult to Sit Still Pupil Size: 0= Normal to Room Light Bone or Joint Aches: 1= Mild Discomfort Runny Nose/ Eye Tearin= Nasal Congestion GI Upset > 30mins: 1= Stomach Cramp Tremor Observation of Outstretched Hands: 1= Tremor [place], Not Seen Yawning Observation: 1= 1-2x During Session Anxiety or Irritability: 2=Irritable/Anxious Goose Flesh Skin: 0=Smooth Skin COWS Score: 11 [facility] Progress Note (SOAP) Subjective: sweats shakes sleep disturbance Objective: 02/28/18 20:48 A & O x 3 Assessment: 02/28/18 20:49 Vital Signs Temperature 98.2 F 02/28/18 17:55 Pulse Rate 75 02/28/18 17:55 Respiratory Rate 18 02/28/18 17:55 Blood Pressure 106/68 02/28/18 17:55 O2 Sat by Pulse Oximetry (%) Plan: continue detox
[2018-02-28] MEDS: THIAMINE HCL 100 MG TABLET (FP) PO SCH (22:50)
[2018-02-28] MEDS: ZOLPIDEM TARTRATE 10 MG TABLET (PARK CARE ONLY) PO PRN (22:51)
[2018-03-01] MEDS: diazePAM 5 MG TABLET PO PRN ×4 (05:47→21:13)
[2018-03-01] MEDS: PRENATAL VITAMINS W/ FOLIC ACID TABLET (FP) PO SCH (10:34)
[2018-03-01] MEDS: BACITRACIN 0.9 GM PACKET TP SCH ×2 (10:34→22:31)
[2018-03-01] MEDS: METHADONE HCL 5 MG TABLET (FOR DETOX USE ONLY) PO SCH (10:34)
[2018-03-01] MEDS: diazePAM 5 MG TABLET PO SCH ×2 (10:34→22:32)
[2018-03-01] MEDS: NICOTINE 21 MG/24 HOURS TOPICAL PATCH TD SCH (10:35)
--- NOTE | 2018-03-01 15:01 | PN ---
[facility] CIWA - CIWA Score Nausea/Vomitin-No Nausea/No Vomiting Muscle Tremors: 4-Moderate,w/Arms Extend Anxiety: 3 Agitation: 3 Paroxysmal Sweats: 1-Minimal Palms Moist Orientation: 0-Oriented Tacttile Disturbances: 0-None Auditory Disturbances: 0-None Visual Disturbances: 0-None Headache: 0-None Present CIWA-Ar Total Score: 11 S COWS - Scale Resting Pulse: 1= [place] 81-100 Sweatin= Chills/Flushing Restless Observation: 1= Difficult to Sit Still Pupil Size: 0= Normal to Room Light Bone or Joint Aches: 1= Mild Discomfort Runny Nose/ Eye Tearin= Nasal Congestion GI Upset > 30mins: 1= Stomach Cramp Tremor Observation of Outstretched Hands: 1= Tremor [place], Not Seen Yawning Observation: 1= 1-2x During Session Anxiety or Irritability: 2=Irritable/Anxious Goose Flesh Skin: 0=Smooth Skin COWS Score: 10 [facility] Progress Note (SOAP) Subjective: joint ache sweat tremor tolerating food and fluid better Objective: 03/01/18 15:01 Vital Signs Temperature 98.1 F 03/01/18 14:11 Pulse Rate 89 03/01/18 14:11 Respiratory Rate 18 03/01/18 14:11 Blood Pressure 111/80 03/01/18 14:11 O2 Sat by Pulse Oximetry (%) Laboratory Last Values WBC 7.0 K/mm3 (4.0-10.0) 02/27/18 13:50 RBC 4.34 M/mm3 (3.60-5.2) 02/27/18 13:50 Hgb 11.8 GM/dL (10.7-15.3) 02/27/18 13:50 Hct 34.9 % (32.4-45.2) 02/27/18 13:50 MCV 80.5 fl (80-96) 02/27/18 13:50 MCH 27.3 pg (25.7-33.7) 02/27/18 13:50 MCHC 33.9 g/dl (32.0-36.0) 02/27/18 13:50 RDW 16.2 % (11.6-15.6) H 02/27/18 13:50 Plt Count 295 K/MM3 (134-434) D 02/27/18 13:50 MPV 9.5 fl (7.5-11.1) 02/27/18 13:50 Sodium 138 mmol/L (136-145) 02/27/18 13:50 Potassium 4.4 mmol/L (3.5-5.1) 02/27/18 13:50 Chloride 103 mmol/L (98-107) 02/27/18 13:50 Carbon Dioxide 29 mmol/L (21-32) 02/27/18 13:50 Anion Gap 6 (8-16) L 02/27/18 13:50 BUN 16 mg/dL (7-18) 02/27/18 13:50 Creatinine 0.7 mg/dL (0.55-1.02) 02/27/18 13:50 Creat Clearance w eGFR > 60 (>60) 02/27/18 13:50 Random Glucose 96 mg/dL (74-106) 02/27/18 13:50 Calcium 8.8 mg/dL (8.5-10.1) 02/27/18 13:50 Total Bilirubin 0.2 mg/dL (0.2-1.0) 02/27/18 13:50 AST 16 U/L (15-37) 02/27/18 13:50 ALT 23 U/L (12-78) 02/27/18 13:50 Alkaline Phosphatase 62 U/L (45-117) 02/27/18 13:50 Total Protein 7.3 g/dl (6.4-8.2) 02/27/18 13:50 Albumin 4.0 g/dl (3.4-5.0) 02/27/18 13:50 Urine Color Yellow 02/27/18 15:00 Urine Appearance Turbid 02/27/18 15:00 Urine pH 5.0 (5.0-8.0) 02/27/18 15:00 Ur Specific [place] 1.026 (1.001-1.035) 02/27/18 15:00 Urine Protein Negative (NEGATIVE) 02/27/18 15:00 Urine Glucose (UA) Negative (NEGATIVE) 02/27/18 15:00 Urine Ketones Negative (NEGATIVE) 02/27/18 15:00 Urine Blood Negative (NEGATIVE) 02/27/18 15:00 Urine Nitrite Negative (NEGATIVE) 02/27/18 15:00 Urine Bilirubin Negative (<2.0 mg/dL) 02/27/18 15:00 Urine Urobilinogen Negative mg/dL (0.2-1.0) 02/27/18 15:00 Ur Leukocyte Esterase Negative (NEGATIVE) 02/27/18 15:00 RPR Titer Nonreactive (NONREACTIVE) 02/27/18 13:50 lab noted Assessment: 03/01/18 15:02 withdrawal sx Plan: continue detox
[2018-03-01] MEDS: IBUPROFEN 400 MG TABLET (FP) PO PRN (17:43)
[2018-03-01] MEDS: GABAPENTIN 300 MG CAPSULE (FP) PO SCH (22:32)
[2018-03-01] MEDS: THIAMINE HCL 100 MG TABLET (FP) PO SCH (22:32)
[2018-03-01] MEDS: cloNIDine HCL 0.1 MG TABLET PO PRN (22:32)
[2018-03-01] MEDS: ZOLPIDEM TARTRATE 10 MG TABLET (PARK CARE ONLY) PO PRN (22:32)
[2018-03-02] MEDS: diazePAM 5 MG TABLET PO PRN (04:18)
[2018-03-02] MEDS: GABAPENTIN 300 MG CAPSULE (FP) PO SCH ×3 (06:02→22:33)
[2018-03-02] MEDS: BACITRACIN 0.9 GM PACKET TP SCH ×2 (10:33→22:32)
[2018-03-02] MEDS: diazePAM 5 MG TABLET PO SCH ×2 (10:34→22:33)
[2018-03-02] MEDS: PRENATAL VITAMINS W/ FOLIC ACID TABLET (FP) PO SCH (10:34)
[2018-03-02] MEDS: METHADONE HCL 5 MG TABLET (FOR DETOX USE ONLY) PO SCH (10:34)
[2018-03-02] MEDS: NICOTINE 21 MG/24 HOURS TOPICAL PATCH TD SCH (10:34)
[2018-03-02] MEDS: cloNIDine HCL 0.1 MG TABLET PO PRN (10:37)
[2018-03-02] MEDS: IBUPROFEN 400 MG TABLET (FP) PO PRN (10:37)
--- NOTE | 2018-03-02 11:23 | PN ---
[facility] Progress Note (SOAP) Subjective: sweat tremor body pain joint ache trouble sleeping anxiety restlessness Objective: 03/02/18 11:25 Vital Signs Temperature 96 F L 03/02/18 05:00 Pulse Rate 66 03/02/18 05:00 Respiratory Rate 16 03/02/18 05:00 Blood Pressure 96/56 03/02/18 05:00 O2 Sat by Pulse Oximetry (%) Laboratory Last Values WBC 7.0 K/mm3 (4.0-10.0) 02/27/18 13:50 RBC 4.34 M/mm3 (3.60-5.2) 02/27/18 13:50 Hgb 11.8 GM/dL (10.7-15.3) 02/27/18 13:50 Hct 34.9 % (32.4-45.2) 02/27/18 13:50 MCV 80.5 fl (80-96) 02/27/18 13:50 MCH 27.3 pg (25.7-33.7) 02/27/18 13:50 MCHC 33.9 g/dl (32.0-36.0) 02/27/18 13:50 RDW 16.2 % (11.6-15.6) H 02/27/18 13:50 Plt Count 295 K/MM3 (134-434) D 02/27/18 13:50 MPV 9.5 fl (7.5-11.1) 02/27/18 13:50 Sodium 138 mmol/L (136-145) 02/27/18 13:50 Potassium 4.4 mmol/L (3.5-5.1) 02/27/18 13:50 Chloride 103 mmol/L (98-107) 02/27/18 13:50 Carbon Dioxide 29 mmol/L (21-32) 02/27/18 13:50 Anion Gap 6 (8-16) L 02/27/18 13:50 BUN 16 mg/dL (7-18) 02/27/18 13:50 Creatinine 0.7 mg/dL (0.55-1.02) 02/27/18 13:50 Creat Clearance w eGFR > 60 (>60) 02/27/18 13:50 Random Glucose 96 mg/dL (74-106) 02/27/18 13:50 Calcium 8.8 mg/dL (8.5-10.1) 02/27/18 13:50 Total Bilirubin 0.2 mg/dL (0.2-1.0) 02/27/18 13:50 AST 16 U/L (15-37) 02/27/18 13:50 ALT 23 U/L (12-78) 02/27/18 13:50 Alkaline Phosphatase 62 U/L (45-117) 02/27/18 13:50 Total Protein 7.3 g/dl (6.4-8.2) 02/27/18 13:50 Albumin 4.0 g/dl (3.4-5.0) 02/27/18 13:50 Urine Color Yellow 02/27/18 15:00 Urine Appearance Turbid 02/27/18 15:00 Urine pH 5.0 (5.0-8.0) 02/27/18 15:00 Ur Specific [place] 1.026 (1.001-1.035) 02/27/18 15:00 Urine Protein Negative (NEGATIVE) 02/27/18 15:00 Urine Glucose (UA) Negative (NEGATIVE) 02/27/18 15:00 Urine Ketones Negative (NEGATIVE) 02/27/18 15:00 Urine Blood Negative (NEGATIVE) 02/27/18 15:00 Urine Nitrite Negative (NEGATIVE) 02/27/18 15:00 Urine Bilirubin Negative (<2.0 mg/dL) 02/27/18 15:00 Urine Urobilinogen Negative mg/dL (0.2-1.0) 02/27/18 15:00 Ur Leukocyte Esterase Negative (NEGATIVE) 02/27/18 15:00 RPR Titer Nonreactive (NONREACTIVE) 02/27/18 13:50 lab noted Assessment: 03/02/18 11:25 withdrawal sx Plan: continue detox
[2018-03-02] MEDS: LIDOCAINE 5% TOPICAL PATCH TP SCH (12:09)
[2018-03-02] MEDS ORDERED: diazePAM 5 MG TABLET PO ONE (14:05)
[2018-03-02] MEDS: THIAMINE HCL 100 MG TABLET (FP) PO SCH (22:33)
[2018-03-02] MEDS: LIDOCAINE PATCH REMOVAL MC SCH (22:44)
[2018-03-03] MEDS: GABAPENTIN 300 MG CAPSULE (FP) PO SCH ×3 (06:56→22:50)
[2018-03-03] MEDS ORDERED: METHADONE HCL 10 MG TABLET (FOR DETOX USE ONLY) PO SCH (10:00)
[2018-03-03] MEDS ORDERED: diazePAM 5 MG TABLET PO SCH (10:00)
--- NOTE | 2018-03-03 10:02 | PN ---
[facility] Progress Note (SOAP) Subjective: feeling better no tremor less sweat denies gi distress social with peers in day room Objective: 03/03/18 10:00 Vital Signs Temperature 97.3 F L 03/03/18 07:16 Pulse Rate 62 03/03/18 07:16 Respiratory Rate 18 03/03/18 07:16 Blood Pressure 102/63 03/03/18 07:16 O2 Sat by Pulse Oximetry (%) Laboratory Last Values WBC 7.0 K/mm3 (4.0-10.0) 02/27/18 13:50 RBC 4.34 M/mm3 (3.60-5.2) 02/27/18 13:50 Hgb 11.8 GM/dL (10.7-15.3) 02/27/18 13:50 Hct 34.9 % (32.4-45.2) 02/27/18 13:50 MCV 80.5 fl (80-96) 02/27/18 13:50 MCH 27.3 pg (25.7-33.7) 02/27/18 13:50 MCHC 33.9 g/dl (32.0-36.0) 02/27/18 13:50 RDW 16.2 % (11.6-15.6) H 02/27/18 13:50 Plt Count 295 K/MM3 (134-434) D 02/27/18 13:50 MPV 9.5 fl (7.5-11.1) 02/27/18 13:50 Sodium 138 mmol/L (136-145) 02/27/18 13:50 Potassium 4.4 mmol/L (3.5-5.1) 02/27/18 13:50 Chloride 103 mmol/L (98-107) 02/27/18 13:50 Carbon Dioxide 29 mmol/L (21-32) 02/27/18 13:50 Anion Gap 6 (8-16) L 02/27/18 13:50 BUN 16 mg/dL (7-18) 02/27/18 13:50 Creatinine 0.7 mg/dL (0.55-1.02) 02/27/18 13:50 Creat Clearance w eGFR > 60 (>60) 02/27/18 13:50 Random Glucose 96 mg/dL (74-106) 02/27/18 13:50 Calcium 8.8 mg/dL (8.5-10.1) 02/27/18 13:50 Total Bilirubin 0.2 mg/dL (0.2-1.0) 02/27/18 13:50 AST 16 U/L (15-37) 02/27/18 13:50 ALT 23 U/L (12-78) 02/27/18 13:50 Alkaline Phosphatase 62 U/L (45-117) 02/27/18 13:50 Total Protein 7.3 g/dl (6.4-8.2) 02/27/18 13:50 Albumin 4.0 g/dl (3.4-5.0) 02/27/18 13:50 Urine Color Yellow 02/27/18 15:00 Urine Appearance Turbid 02/27/18 15:00 Urine pH 5.0 (5.0-8.0) 02/27/18 15:00 Ur Specific [place] 1.026 (1.001-1.035) 02/27/18 15:00 Urine Protein Negative (NEGATIVE) 02/27/18 15:00 Urine Glucose (UA) Negative (NEGATIVE) 02/27/18 15:00 Urine Ketones Negative (NEGATIVE) 02/27/18 15:00 Urine Blood Negative (NEGATIVE) 02/27/18 15:00 Urine Nitrite Negative (NEGATIVE) 02/27/18 15:00 Urine Bilirubin Negative (<2.0 mg/dL) 02/27/18 15:00 Urine Urobilinogen Negative mg/dL (0.2-1.0) 02/27/18 15:00 Ur Leukocyte Esterase Negative (NEGATIVE) 02/27/18 15:00 RPR Titer Nonreactive (NONREACTIVE) 02/27/18 13:50 lab noted Assessment: 03/03/18 10:00 mild withdrawal sx Plan: medically supervised detox
[2018-03-03] MEDS: BACITRACIN 0.9 GM PACKET TP SCH ×2 (10:56→22:50)
[2018-03-03] MEDS: PRENATAL VITAMINS W/ FOLIC ACID TABLET (FP) PO SCH (10:57)
[2018-03-03] MEDS: NICOTINE 21 MG/24 HOURS TOPICAL PATCH TD SCH (10:57)
[2018-03-03] MEDS: LIDOCAINE 5% TOPICAL PATCH TP SCH (10:58)
[2018-03-03] MEDS: cloNIDine HCL 0.1 MG TABLET PO PRN ×2 (11:00→22:50)
[2018-03-03] MEDS: IBUPROFEN 400 MG TABLET (FP) PO PRN (17:40)
[2018-03-03] MEDS: LIDOCAINE PATCH REMOVAL MC SCH (22:50)
[2018-03-03] MEDS: THIAMINE HCL 100 MG TABLET (FP) PO SCH (22:51)
[2018-03-04] MEDS ORDERED: METHADONE HCL 5 MG TABLET (FOR DETOX USE ONLY) PO SCH (06:00)
[2018-03-04] MEDS: GABAPENTIN 300 MG CAPSULE (FP) PO SCH (06:25)
--- NOTE | 2018-03-04 09:42 | DS ---
[facility] Detox Discharge Summary Admission Date: 02/27/18 Discharge Date: 03/04/18 - History Present History: Alcohol Dependence, Opioid Dependence, Sedative Dependence Additional Comments: 28 years old female admitted on 02/27/18 for opioid xanax alcohol withdrawal sx completed detox regimen tolerated well denies withdrawal sx patient wants aftercare at [facility] patient is alert oriented x 3 no acute distress 100% breakfast - Physical Exam Results Vital Signs: Vital Signs Temperature 97.7 F 03/04/18 06:00 Pulse Rate 70 03/04/18 06:00 Respiratory Rate 16 03/04/18 06:00 Blood Pressure 83/50 03/04/18 06:00 O2 Sat by Pulse Oximetry (%) Pertinent Admission Physical Exam Findings: withdrawal sx Laboratory Last Values WBC 7.0 K/mm3 (4.0-10.0) 02/27/18 13:50 RBC 4.34 M/mm3 (3.60-5.2) 02/27/18 13:50 Hgb 11.8 GM/dL (10.7-15.3) 02/27/18 13:50 Hct 34.9 % (32.4-45.2) 02/27/18 13:50 MCV 80.5 fl (80-96) 02/27/18 13:50 MCH 27.3 pg (25.7-33.7) 02/27/18 13:50 MCHC 33.9 g/dl (32.0-36.0) 02/27/18 13:50 RDW 16.2 % (11.6-15.6) H 02/27/18 13:50 Plt Count 295 K/MM3 (134-434) D 02/27/18 13:50 MPV 9.5 fl (7.5-11.1) 02/27/18 13:50 Sodium 138 mmol/L (136-145) 02/27/18 13:50 Potassium 4.4 mmol/L (3.5-5.1) 02/27/18 13:50 Chloride 103 mmol/L (98-107) 02/27/18 13:50 Carbon Dioxide 29 mmol/L (21-32) 02/27/18 13:50 Anion Gap 6 (8-16) L 02/27/18 13:50 BUN 16 mg/dL (7-18) 02/27/18 13:50 Creatinine 0.7 mg/dL (0.55-1.02) 02/27/18 13:50 Creat Clearance w eGFR > 60 (>60) 02/27/18 13:50 Random Glucose 96 mg/dL (74-106) 02/27/18 13:50 Calcium 8.8 mg/dL (8.5-10.1) 02/27/18 13:50 Total Bilirubin 0.2 mg/dL (0.2-1.0) 02/27/18 13:50 AST 16 U/L (15-37) 02/27/18 13:50 ALT 23 U/L (12-78) 02/27/18 13:50 Alkaline Phosphatase 62 U/L (45-117) 02/27/18 13:50 Total Protein 7.3 g/dl (6.4-8.2) 02/27/18 13:50 Albumin 4.0 g/dl (3.4-5.0) 02/27/18 13:50 Urine Color Yellow 02/27/18 15:00 Urine Appearance Turbid 02/27/18 15:00 Urine pH 5.0 (5.0-8.0) 02/27/18 15:00 Ur Specific [place] 1.026 (1.001-1.035) 02/27/18 15:00 Urine Protein Negative (NEGATIVE) 02/27/18 15:00 Urine Glucose (UA) Negative (NEGATIVE) 02/27/18 15:00 Urine Ketones Negative (NEGATIVE) 02/27/18 15:00 Urine Blood Negative (NEGATIVE) 02/27/18 15:00 Urine Nitrite Negative (NEGATIVE) 02/27/18 15:00 Urine Bilirubin Negative (<2.0 mg/dL) 02/27/18 15:00 Urine Urobilinogen Negative mg/dL (0.2-1.0) 02/27/18 15:00 Ur Leukocyte Esterase Negative (NEGATIVE) 02/27/18 15:00 RPR Titer Nonreactive (NONREACTIVE) 02/27/18 13:50 lab noted - Treatment Hospital Course: Detox Protocol Followed, Detoxed Safely, Responded well, Discharged Condition Good, Rehab Referral Accepted Patient has Accepted a Rehab Referral to: [facility] - Medication Discharge Medications: Ambulatory Orders Mirtazapine [Remeron -] 30 mg PO HS #30 tablet 08/13/17 Quetiapine Fumarate [Seroquel -] 300 mg PO HS #30 tablet 08/13/17 Topiramate [Topamax -] 100 mg PO BID #60 tablet 08/13/17 Suvorexant [Belsomra] 10 mg PO HS 12/05/17 cloNIDine HCL [Catapres -] 0.1 mg PO Q12H PRN 03/02/18 Albuterol Sulfate Inhaler - [Ventolin HFA Inhaler -] 2 inh PO Q4H PRN #1 inhaler 03/03/18 Gabapentin [Neurontin -] 600 mg PO TID #120 cap 03/03/18 - Diagnosis (1) Alcohol dependence with uncomplicated withdrawal Current Visit: Yes Status: Acute (2) Opioid dependence with withdrawal Current Visit: Yes Status: Acute (3) Sedative, hypnotic or anxiolytic dependence with withdrawal, uncomplicated Current Visit: Yes Status: Acute (4) Asthma Current Visit: Yes Status: Chronic Qualifiers: Asthma severity: mild Asthma persistence: intermittent Asthma complication type: uncomplicated Qualified Code(s): J45.20 - Mild intermittent asthma, uncomplicated (5) Nicotine dependence Current Visit: Yes Status: Acute Qualifiers: Nicotine product type: cigarettes Substance use status: in withdrawal Qualified Code(s): F17.213 - Nicotine dependence, cigarettes, with withdrawal - AMA Did Patient Leave Against Medical Advice: No
[2018-03-04] MEDS: PRENATAL VITAMINS W/ FOLIC ACID TABLET (FP) PO SCH (10:22)
[2018-03-04] MEDS: NICOTINE 21 MG/24 HOURS TOPICAL PATCH TD SCH (10:23)
[2018-03-04] MEDS: BACITRACIN 0.9 GM PACKET TP SCH (10:24)
[2018-03-04] MEDS: cloNIDine HCL 0.1 MG TABLET PO PRN (10:24)
[2018-03-04] MEDS: LIDOCAINE 5% TOPICAL PATCH TP SCH (10:25)
[2018-03-04 10:48] VITALS: BP 113/64; PULSE 84; TEMP 97.9
== END 2018-03-04 11:12 | disposition home or self-care (01) | DRG 773 ==
LOC: YASAS 10:00 → Y6N 13:52
PROVIDERS: ADMIT Internal Medicine; ATTEND Internal Medicine
PROC: HZ2ZZZZ Detoxification Services for Substance Abuse Treatment (ICD-10-PCS; principal; 2018-03-04)
DX: F11.23 Opioid dependence with withdrawal (principal); F13.230 Sedative, hypnotic or anxiolytic dependence with withdrawal, uncomplicated; F10.230 Alcohol dependence with withdrawal, uncomplicated; F17.213 Nicotine dependence, cigarettes, with withdrawal; F19.24 Other psychoactive substance dependence with psychoactive substance-induced mood disorder; F19.282 Other psychoactive substance dependence with psychoactive substance-induced sleep disorder; F32.9 Major depressive disorder, single episode, unspecified; F41.9 Anxiety disorder, unspecified; J45.20 Mild intermittent asthma, uncomplicated
CPT/HCPCS: 36415; 80053; 81003; 85027; 86593; 93005; 93010; J0735